=== PATIENT | female | born 1985 | race Hispanic/Latino ===

== ENCOUNTER 2018-02-24 09:13 | Emergency (ER) | payer OTHER ==
--- NOTE | 2018-02-24 10:22 | EDPHYS ---
Physician Documentation [facility] Name: Edel Willingham Age: 33 yrs Sex: Female : 1985 Arrival Date: 02/24/2018 Time: 09:16 Bed 10 Private MD: None, None ED Physician Tej Lake HPI: 02/24 10:20 This 33 yrs old Female presents to ER via Ambulatory with complaints of Rash. jmm 10:20 The patient's rash thought to be caused by an unknown cause. The rash is located on the jmm right arm, left arm, right leg, left leg and neck. 10:20 Onset: The symptoms/episode began/occurred gradually, 3 day(s) ago. jmm 10:20 Associated signs and symptoms: Pertinent negatives: fever. jmm 10:20 Associated signs and symptoms: Pertinent negatives: difficulty breathing, swelling of jmm throat, swelling of tongue. 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 - Social history:: Smoking status: Patient uses tobacco products, smokes one pack cigarettes per day. Patient/guardian denies using alcohol. - Ebola Screening: : Patient negative for fever greater than or equal to 101.5 degrees Fahrenheit, and additional compatible Ebola Virus Disease symptoms Patient denies exposure to infectious person Patient denies travel to an Ebola-affected area in the 21 days before illness onset. ROS: 10:20 Constitutional: Negative for fever, chills, and weight loss. jmm 10:20 Respiratory: Negative for shortness of breath. 10:20 MS/extremity: Positive for erythema. 10:20 Skin: Positive for erythema, rash. 10:20 Neuro: Negative for weakness. 10:20 All other systems are negative. Exam: 10:20 Head/Face: atraumatic. jmm 10:20 Constitutional: The patient appears in no acute distress, alert, awake. 10:20 ENT: no pharyngeal edema appreciated. 10:20 Neck: ROM/movement: is normal. 10:20 Cardiovascular: Rate: normal, Rhythm: regular. 10:20 Respiratory: the patient does not display signs of respiratory distress, Respirations: normal, Breath sounds: are clear throughout. 10:20 Musculoskeletal/extremity: ROM: intact in all extremities. 10:20 Skin: mild erythema noted to the right and left arm, no induration is appreciated, the area is non tender to palpation. . 10:20 Neuro: Orientation: is normal, appropriate for stated age, Mentation: is normal, Memory: is normal. 10:20 Psych: Behavior/mood is pleasant, cooperative. Vital Signs: 09:26 BP 138 / 89; Pulse 65; Resp 18; Temp 98.8(O); Pulse Ox 100% on R/A; Weight 108.86 kg; hj Height 5 ft. 5 in. (165.10 cm); Pain 0/10; 09:26 Body Mass Index 39.94 (108.86 kg, 165.10 cm) hj MDM: 10:20 Patient medically screened. [facility] 10:20 Counseling: I had a detailed discussion with the patient and/or guardian regarding: the [facility] historical points, exam findings, and any diagnostic results supporting the discharge/admit diagnosis, the presence of at least one elevated blood pressure reading (>120/80) during this emergency department visit, the need for outpatient follow up, to return to the emergency department if symptoms worsen or persist or if there are any questions or concerns that arise at home. ED course: Patient will be prescribed oral steroids, advised to follow up with dermatology for further evaluation. Patient advised to return to the ED if she develops increased swelling, shortness of breath, fever, or any other concerning symptoms. . 10:21 Data reviewed: vital signs, nurses notes. [facility] Administered Medications: No medications were administered Disposition: 02/24/18 10:21 Discharged to Home. Impression: Dermatitis, unspecified. - Condition is Stable. - Discharge Instructions: Contact Dermatitis. - Prescriptions for Hydroxyzine HCl 25 mg Oral Tablet - take 1 tablet by ORAL route every 6 hours As needed; 30 tablet. Prednisone 20 mg Oral Tablet - take 1 tablet by ORAL route once daily FOR 12 DAYS Pleast take 3 tabs by mouth daily for 3 days, then 2 tabs by mouth daily for 3 days, then 1 tab by mouth daily for 3 days, then 1/2 tab by mouth daily for 3 days; 20 tablet. - Medication Reconciliation Form, Thank You Letter, Antibiotic Education, Prescription Opioid Use, Work release form form. - Follow up: Private Physician; When: 2 - 3 days; Reason: Continuance of care. Addendum: 02/25/2018 15:51 Co-signature as Attending Physician, Tej Lake MD Available for consultation at p s1 all times.. Signatures: Jg Garsia PA PA jmm Williams, Irene, RN RN iw Adelso Gambino RN RN hj Tej Lake MD MD ps1 Corrections: (The following items were deleted from the chart) 02/24 10:36 10:21 02/24/2018 10:21 Discharged to Home. Impression: Dermatitis, unspecified. iw Condition is Stable. Forms are Medication Reconciliation Form, Thank You Letter, Antibiotic Education, Prescription Opioid Use. Follow up: Private Physician; When: 2 - 3 days; Reason: Continuance of care. kailee
--- NOTE | 2018-02-24 10:22 | ER ---
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 Transition of care: patient was not received from another setting of care. Onset of symptoms was February 24, 2018. Risk Assessment: Do you want to hurt yourself or someone else? Patient reports no desire to harm self or others. Initial Sepsis Screen: Does the patient meet any 2 criteria? No. Patient's initial sepsis screen is negative. Does the patient have a suspected source of infection? No. Patient's initial sepsis screen is negative. Care prior to arrival: None. 09:24 Method Of Arrival: Ambulatory 09:24 Acuity: PHILLIP 4 Triage Assessment: 09:26 General: Appears in no apparent distress. uncomfortable, Behavior is calm, cooperative, hj appropriate for age. Pain: Denies pain. 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 - Social history:: Smoking status: Patient uses tobacco products, smokes one pack cigarettes per day. Patient/guardian denies using alcohol. - Ebola Screening: : Patient negative for fever greater than or equal to 101.5 degrees Fahrenheit, and additional compatible Ebola Virus Disease symptoms Patient denies exposure to infectious person Patient denies travel to an Ebola-affected area in the 21 days before illness onset. Screenin:26 Abuse screen: Denies threats or abuse. Denies injuries from another. Nutritional hj screening: No deficits noted. Tuberculosis screening: No symptoms or risk factors identified. Fall Risk None identified. Assessment: 10:06 General: Appears in no apparent distress. comfortable, Behavior is calm, cooperative. iw Pain: Denies pain. Neuro: Level of Consciousness is awake, alert, obeys commands, Oriented to person, place, time, situation, Moves all extremities. Full function. Respiratory: Respiratory effort is even, unlabored, Respiratory pattern is regular, symmetrical. Derm: Rash noted that is macular, itchy, on chest, right foot, left foot, right arm, left arm, right leg and left leg. Musculoskeletal: Range of motion: intact in all extremities. Vital Signs: 09:26 BP 138 / 89; Pulse 65; Resp 18; Temp 98.8(O); Pulse Ox 100% on R/A; Weight 108.86 kg; hj Height 5 ft. 5 in. (165.10 cm); Pain 0/10; 09:26 Body Mass Index 39.94 (108.86 kg, 165.10 cm) ED Course: 09:16 Patient arrived in ED. mr 09:17 [facility] 09:17 Tej Lake MD is Attending Physician. [facility] 09:17 None, None is Private Physician. mr 09:25 Triage completed. hj 09:26 Arm band placed on left wrist. hj 09:26 Patient has correct armband on for positive identification. Bed in low position. Call light in reach. Side rails up X 1. 09:46 Ivon Easley, RN is Primary Nurse. iw 10:07 No provider procedures requiring assistance completed. Patient did not have IV access iw during this emergency room visit. Patient maintains SpO2 saturation greater than 95% on room air. Administered Medications: No medications were administered Outcome: 10:21 Discharge ordered by . [facility] 10:35 Discharged to home ambulatory. iw 10:35 Condition: good 10:35 Discharge instructions given to patient, Instructed on discharge instructions, follow up and referral plans. medication usage, Demonstrated understanding of instructions, follow-up care, medications, Prescriptions given X 2. 10:36 Patient left the ED. iw Signatures: Jg Garsia PA PA jmm Rivera, Maria mr Ivon Easley, RN RN Adelso Gambino RN RN Corrections: (The following items were deleted from the chart) 09:28 09:26 Pulse 65bpm; Resp 18bpm; Pulse Ox 100% RA; Temp 98.8F Oral; 108.86 kg; Height 5 hj ft. 5 in.; BMI: 39.9; Pain 0/10; hj
[2018-02-24 10:39] VITALS: BP 138/89; TEMP 98.8; O2SAT 100
== END 2018-02-24 10:36 | disposition home or self-care (01) ==
LOC: ER 09:13
DX: L30.9 Dermatitis, unspecified (principal); F17.210 Nicotine dependence, cigarettes, uncomplicated
CPT/HCPCS: 99284

== ENCOUNTER 2018-08-29 15:36 | Emergency (ER) | payer OTHER ==
--- NOTE | 2018-08-29 17:36 | ER ---
Nurse's Notes [facility] Name: Edel Willingham Age: 33 yrs Sex: Female : 1985 Arrival Date: 08/29/2018 Time: 15:39 Bed 12 Private MD: None, None Diagnosis: Dental pain;Dental caries Presentation: 08/29 15:47 Presenting complaint: Patient states: my L top and bottom tooth is hurting for a week hj now; denies headache;. Transition of care: patient was not received from another setting of care. Onset of symptoms was August 29, 2018. Risk Assessment: Do you want to hurt yourself or someone else? Patient reports no desire to harm self or others. Initial Sepsis Screen: Does the patient meet any 2 criteria? No. Patient's initial sepsis screen is negative. Does the patient have a suspected source of infection? No. Patient's initial sepsis screen is negative. Care prior to arrival: None. 15:47 Method Of Arrival: Ambulatory 15:47 Acuity: PHILLIP 4 hj Triage Assessment: 15:48 General: Appears in no apparent distress. uncomfortable, Behavior is calm, cooperative, hj appropriate for age. Pain: Complains of pain in tooth. EENT: Reports pain. 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 - Social history:: Smoking status: Patient uses tobacco products, Patient/guardian denies using alcohol. - Ebola Screening: : Patient negative for fever greater than or equal to 101.5 degrees Fahrenheit, and additional compatible Ebola Virus Disease symptoms Patient denies exposure to infectious person Patient denies travel to an Ebola-affected area in the 21 days before illness onset. Screenin:49 Abuse screen: Denies threats or abuse. Denies injuries from another. Nutritional hj screening: No deficits noted. Tuberculosis screening: No symptoms or risk factors identified. Fall Risk None identified. Assessment: 17:10 General: Appears in no apparent distress. Behavior is calm, cooperative. Pain: iw Complains of pain in left jaw. Neuro: Level of Consciousness is awake, alert, obeys commands, Oriented to person, place, time, situation, Moves all extremities. Full function. Cardiovascular: Patient's skin is warm and dry. Respiratory: Airway is patent Respiratory effort is even, unlabored. GI: No signs and/or symptoms were reported involving the gastrointestinal system. Derm: Skin is intact, is healthy with good turgor. Musculoskeletal: Range of motion: intact in all extremities. Vital Signs: 15:49 BP 122 / 69; Pulse 73; Resp 18; Temp 99.8(O); Pulse Ox 100% on R/A; Weight 113.4 kg; hj Height 5 ft. 6 in. (167.64 cm); Pain 6/10; 15:49 Body Mass Index 40.35 (113.40 kg, 167.64 cm) ED Course: 15:39 Patient arrived in ED. mr 15:39 None, None is Private Physician. mr 15:48 Triage completed. hj 15:49 Arm band placed on right wrist. hj 15:50 Patient has correct armband on for positive identification. Bed in low position. Call light in reach. Side rails up X 1. 17:23 Ivon Easley, LESLIE is Primary Nurse. iw 17:23 Bhavin Christiansen NP is PHCP. pm1 17:23 Arash Banuelos MD is Attending Physician. pm1 17:54 No provider procedures requiring assistance completed. Patient did not have IV access iw during this emergency room visit. Administered Medications: 17:48 Drug: Ibuprofen 800 mg Route: PO; iw Outcome: 17:36 Discharge ordered by MD. pm1 17:54 Discharged to home ambulatory. iw 17:54 Condition: good 17:54 Discharge instructions given to patient, Instructed on discharge instructions, follow up and referral plans. medication usage, Demonstrated understanding of instructions, follow-up care, medications, Prescriptions given X 2. 17:55 Patient left the ED. iw Signatures: Jocelyn Lozano mr Ivon Easley RN RN Adelso Gambino RN RN Bhavin Christiansen NP SENIOR SUPPORT ANALYST pm1 Corrections: (The following items were deleted from the chart) 15:51 15:49 Pulse 73bpm; Resp 18bpm; Pulse Ox 100% RA; Temp 99.8F Oral; 113.4 kg; Height 5 hj ft. 6 in.; BMI: 40.3; Pain 6/10; hj
--- NOTE | 2018-08-29 17:37 | EDPHYS ---
Physician Documentation [facility] Name: Edel Willingham Age: 33 yrs Sex: Female : 1985 Arrival Date: 08/29/2018 Time: 15:39 Bed 12 Private MD: None, None ED Physician Arash Banuelos HPI: 08/29 17:35 This 33 yrs old Female presents to ER via Ambulatory with complaints of pm1 Toothache. 17:35 The patient presents with pain. The problem is located in the lower left third molar pm1 and lower left second molar. Onset: The symptoms/episode began/occurred 1 week(s) ago. Duration: The symptoms are continuous. Modifying factors: The symptoms are alleviated by over the counter medications, NSAIDs, the symptoms are aggravated by nothing. Associated signs and symptoms: Pertinent negatives: chills, dysphagia, fever, inability to eat, nausea, swelling, vomiting. Severity of symptoms: in the emergency department the symptoms are unchanged. The patient has not recently seen a physician. 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 - Social history:: Smoking status: Patient uses tobacco products, Patient/guardian denies using alcohol. - Ebola Screening: : Patient negative for fever greater than or equal to 101.5 degrees Fahrenheit, and additional compatible Ebola Virus Disease symptoms Patient denies exposure to infectious person Patient denies travel to an Ebola-affected area in the 21 days before illness onset. ROS: 17:35 Constitutional: Negative for fever, chills, and weight loss, Eyes: Negative for injury, pm1 pain, redness, and discharge. 17:35 Neck: Negative for injury, pain, and swelling, Cardiovascular: Negative for chest pain, palpitations, and edema, Respiratory: Negative for shortness of breath, cough, wheezing, and pleuritic chest pain, Abdomen/GI: Negative for abdominal pain, nausea, vomiting, diarrhea, and constipation, Back: Negative for injury and pain, : Negative for injury, bleeding, discharge, and swelling, MS/Extremity: Negative for injury and deformity, Skin: Negative for injury, rash, and discoloration, Neuro: Negative for headache, weakness, numbness, tingling, and seizure. 17:35 ENT: Positive for dental pain, Negative for drainage from ear(s), ear pain, sinus pain, sore throat, difficulty swallowing, difficulty handling secretions, hoarseness. Exam: 17:35 Constitutional: This is a well developed, well nourished patient who is awake, alert, pm1 and in no acute distress. Head/Face: Normocephalic, atraumatic. Eyes: Pupils equal round and reactive to light, extra-ocular motions intact. Lids and lashes normal. Conjunctiva and sclera are non-icteric and not injected. Cornea within normal limits. Periorbital areas with no swelling, redness, or edema. 17:35 Neck: Trachea midline, no thyromegaly or masses palpated, and no cervical lymphadenopathy. Supple, full range of motion without nuchal rigidity, or vertebral point tenderness. No Meningismus. Chest/axilla: Normal chest wall appearance and motion. Nontender with no deformity. No lesions are appreciated. Cardiovascular: Regular rate and rhythm with a normal S1 and S2. No gallops, murmurs, or rubs. Normal PMI, no JVD. No pulse deficits. Respiratory: Lungs have equal breath sounds bilaterally, clear to auscultation and percussion. No rales, rhonchi or wheezes noted. No increased work of breathing, no retractions or nasal flaring. Abdomen/GI: Soft, non-tender, with normal bowel sounds. No distension or tympany. No guarding or rebound. No evidence of tenderness throughout. Back: No spinal tenderness. No costovertebral tenderness. Full range of motion. Skin: Warm, dry with normal turgor. Normal color with no rashes, no lesions, and no evidence of cellulitis. MS/ Extremity: Pulses equal, no cyanosis. Neurovascular intact. Full, normal range of motion. 17:35 ENT: External ear(s): are unremarkable, Ear canal(s): are normal, Mouth: is normal, no abscess, no drooling, (-) tongue elevation (-) trismus Dental exam: dental caries, diffusely, fractured teeth are noted, specifically the lower left third molar (#17) and lower left second molar (#18), gum swelling, not appreciated. 17:35 Neuro: Orientation: is normal, Motor: is normal, moves all fours, Sensation: is normal, no obvious gross deficits. Vital Signs: 15:49 BP 122 / 69; Pulse 73; Resp 18; Temp 99.8(O); Pulse Ox 100% on R/A; Weight 113.4 kg; hj Height 5 ft. 6 in. (167.64 cm); Pain 6/10; 15:49 Body Mass Index 40.35 (113.40 kg, 167.64 cm) hj MDM: 17:35 Patient medically screened. pm1 17:35 Data reviewed: vital signs. Data interpreted: Pulse oximetry: on room air is 100 %. pm1 Interpretation: normal. Counseling: I had a detailed discussion with the patient and/or guardian regarding: the historical points, exam findings, and any diagnostic results supporting the discharge/admit diagnosis, the need for outpatient follow up, for definitive care, a dentist, to return to the emergency department if symptoms worsen or persist or if there are any questions or concerns that arise at home. 17:37 ED course: Patient did not want narcotic pain medication in the ER. Requested ibuprofen.pm1 Administered Medications: 17:48 Drug: Ibuprofen 800 mg Route: PO; iw Disposition: 08/29/18 17:36 Discharged to Home. Impression: Dental pain, Dental caries. - Condition is Stable. - Discharge Instructions: Dental Caries, Adult, Dental Pain. - Prescriptions for Augmentin 875- 125 mg Oral Tablet - take 1 tablet by ORAL route every 12 hours for 10 days; 20 tablet. Tramadol 50 mg Oral Tablet - take 1 tablet by ORAL route every 8 hours as needed; 12 tablet. - Medication Reconciliation Form, Thank You Letter, Antibiotic Education, Prescription Opioid Use form. - Follow up: Emergency Department; When: As needed; Reason: Worsening of condition. Follow up: Private Physician; When: 2 - 3 days; Reason: Recheck today's complaints, Continuance of care, Re-evaluation by your physician. - Problem is new. - Symptoms have improved. Addendum: 09/11/2018 07:32 Co-signature as Attending Physician, Arash Banuelos MD I agree with the assessment and k dr plan of care. Signatures: Rittger, Arash, MD Ivon Romero RN RN iw Adelso Gambino RN RN hj Bhavin Christiansen, LITHOPLATE MAKER LITHOPLATE MAKER pm1 Corrections: (The following items were deleted from the chart) 08/29 17:36 17:36 08/29/2018 17:36 Discharged to Home. Impression: Dental pain. Condition is pm1 Stable. Forms are Medication Reconciliation Form, Thank You Letter, Antibiotic Education, Prescription Opioid Use. Follow up: Emergency Department; When: As needed; Reason: Worsening of condition. Follow up: Private Physician; When: 2 - 3 days; Reason: Recheck today's complaints, Continuance of care, Re-evaluation by your physician. Problem is new. Symptoms have improved. pm1 17:55 17:36 08/29/2018 17:36 Discharged to Home. Impression: Dental pain; Dental caries. iw Condition is Stable. Forms are Medication Reconciliation Form, Thank You Letter, Antibiotic Education, Prescription Opioid Use. Follow up: Emergency Department; When: As needed; Reason: Worsening of condition. Follow up: Private Physician; When: 2 - 3 days; Reason: Recheck today's complaints, Continuance of care, Re-evaluation by your physician. Problem is new. Symptoms have improved. pm1
[2018-08-29 18:00] VITALS: BP 122/69; TEMP 99.8; O2SAT 100
[2018-08-29] MEDS ORDERED: IBUPROFEN 400 MG TAB ONE (18:00)
== END 2018-08-29 17:55 | disposition home or self-care (01) ==
LOC: ER 15:36
DX: K02.9 Dental caries, unspecified (principal); Z72.0 Tobacco use
CPT/HCPCS: 99283

== ENCOUNTER 2018-09-12 05:46 | Emergency (ER) | payer OTHER ==
[2018-09-12] MEDS ORDERED: KETOROLAC 30 MG/ML INJ ONE (06:33)
[2018-09-12 06:38] LABS: Urine Bacteria 20-50 /HPF (<20); Urine Culture Reflex Order NOT NEEDED; Urine RBC TNTC /HPF (NONE SEEN)
[2018-09-12] MEDS ORDERED: TAMSULOSIN 0.4 MG SR CAP ONE (07:58)
--- NOTE | 2018-09-12 08:12 | RAD REPORT ---
EXAM DESCRIPTION: CT - Stone Protocol - 09/12/2018 6:38 am CLINICAL HISTORY: Flank pain. KIDNEY STONES COMPARISON: CT-STONE PROTOCOL dated 06/25/2008 TECHNIQUE: Axial images were obtained without oral or IV contrast. Lack of contrast limits solid org an and vascular assessment. The [id number] spans the entirety of the system partially obscuring uppermost abdomen and lung bases. Coronal reformatted images were obtained and reviewed. All CT scans are performed using dose optimization technique as appropriate and may include automated exposure control or mA/KV adjustment according to patient size. FINDINGS: The lower lung snyder are clear. Imaged portions of the liver and spleen show no suspicious findings on non-contrast imaging. The panc reas and adrenal glands are normal. No pathologic lymphadenopathy in the abdomen or pelvis. 5 mm stone (840 HU) is noted at the left UVJ resulting in mild to moderate left hydronephrosis. Addit ional stones are present in the calices of both kidneys, largest in the upper pole calyx measuring 4 mm. No bowel obstruction, free air, free fluid or abscess. Normal appendix noted. No significant bony abnormality. IMPRESSION: 5 mm stone noted at the left UVJ resulting in mild to moderate left hydronephrosis. Additional bilateral nephrolithiasis is also present.
--- NOTE | 2018-09-12 08:17 | ER ---
Nurse's Notes [facility] Name: Edel Willingham Age: 33 yrs Sex: Female : 1985 Arrival Date: 09/12/2018 Time: 05:49 Bed 16 Private MD: Diagnosis: Calculus of kidney with calculus of ureter;Hydronephrosis with renal and ureteral calculous obstruction Presentation: 09/12 05:51 Presenting complaint: Patient states: I have been having lower abdominal and back pain jb4 for the past 2 days. It has been getting worse and was at its worst this morning when I woke up. 05:51 Transition of care: patient was not received from another setting of care. Onset of jb4 symptoms was September 10, 2018. Risk Assessment: Do you want to hurt yourself or someone else? Patient reports no desire to harm self or others. Initial Sepsis Screen: Does the patient meet any 2 criteria? No. Patient's initial sepsis screen is negative. Does the patient have a suspected source of infection? No. Patient's initial sepsis screen is negative. Care prior to arrival: None. 05:51 Method Of Arrival: Ambulatory jb4 05:51 Acuity: PHILLIP 3 jb4 Triage Assessment: 05:51 General: Appears in no apparent distress. uncomfortable, Behavior is calm, cooperative, jb4 appropriate for age. Pain: Complains of pain in left low back and left lower quadrant Pain does not radiate. Pain currently is 7 out of 10 on a pain scale. Quality of pain is described as crampy. EENT: No signs and/or symptoms were reported regarding the EENT system. Neuro: Level of Consciousness is awake, alert, obeys commands, Oriented to person, place, time, situation. Cardiovascular: Patient's skin is warm and dry. Respiratory: Airway is patent Respiratory effort is even, unlabored, Respiratory pattern is regular, symmetrical. GI: Abdomen is non-distended, obese, Bowel sounds present X 4 quads. Abd is soft and non tender X 4 quads. : Reports cramping, in left lower quadrant(s) lower back bloody urination. Derm: Skin is intact, Skin is pink, warm \T\ dry. Musculoskeletal: Circulation, motion, and sensation intact. 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 - Social history:: Smoking status: Patient uses tobacco products, smokes one-half pack cigarettes per day, Patient/guardian denies using alcohol. - Ebola Screening: : No symptoms or risks identified at this time. Screenin:51 Abuse screen: Denies threats or abuse. Nutritional screening: No deficits noted. jb4 Tuberculosis screening: No symptoms or risk factors identified. Fall Risk None identified. Assessment: 05:51 General: see triage assessment.. jb4 06:45 Reassessment: Pt back from CT. jb4 06:47 Reassessment: Patient appears in no apparent distress at this time. Patient and/or jb4 family updated on plan of care and expected duration. Pain level reassessed. Patient is alert, oriented x 3, equal unlabored respirations, skin warm/dry/pink. Patient states feeling better. 07:15 Reassessment: Pt reporting increased pain at this time. Warm compress provided at this jl7 time, pt does not want additional pain medication at this time. Vital Signs: 05:51 BP 146 / 93; Pulse 84; Resp 18; Temp 98.2(O); Pulse Ox 98% on R/A; Weight 113.4 kg (R); jb4 Height 5 ft. 9 in. (175.26 cm) (R); Pain 7/10; 06:45 BP 107 / 81; Pulse 67; Resp 16; Pulse Ox 99% on R/A; jb4 08:00 BP 113 / 84; Pulse 80; Resp 16 S; Pulse Ox 99% on R/A; jl7 05:51 Body Mass Index 36.92 (113.40 kg, 175.26 cm) [facility] ED Course: 05:49 Patient arrived in ED. es 05:51 Kt Samaniego, RN is Primary Nurse. [facility] 05:51 Arm band placed on left wrist. jb4 05:51 Patient has correct armband on for positive identification. Bed in low position. Call [facility] light in reach. Side rails up X 1. Pulse ox on. NIBP on. 06:02 Triage completed. jb4 06:02 Katiuska Finch FNP-C [facility]. snw 06:02 Jed Leon MD is Attending Physician. snw 06:[address] via wheelchair. kw1 06:38 CT Stone Protocol In Process Unspecified. EDMS 06:40 CT completed. Patient tolerated procedure well. Patient moved back from CT. kw1 08:31 No provider procedures requiring assistance completed. Patient did not have IV access jl7 during this emergency room visit. Administered Medications: 06:29 Drug: TORadol 60 mg Route: IM; Site: right gluteus; jb4 06:45 Follow up: Response: No adverse reaction; Pain is decreased jb4 07:52 Drug: Flomax 0.4 mg Route: PO; jl7 08:34 Follow up: Response: No adverse reaction jl7 Outcome: 08:16 Discharge ordered by . snw 08:31 Discharged to home ambulatory. jl7 08:31 Condition: stable 08:31 Discharge instructions given to patient, family, Instructed on discharge instructions, follow up and referral plans. medication usage, Demonstrated understanding of instructions, follow-up care, medications, Prescriptions given X 3. 08:34 Patient left the ED. jl7 Signatures: Dispatcher [employer] EDOK Katiuska Finch FNP-C DISTRIBUTION CENTER ADMINISTRATOR-Csnw Rose Schwarz James, RN RN jb4 Salomon Grover RN RN jl7 Lizbeth Jack kw1
--- NOTE | 2018-09-12 08:18 | EDPHYS ---
Physician Documentation [facility] Name: Edel Willingham Age: 33 yrs Sex: Female : 1985 Arrival Date: 09/12/2018 Time: 05:49 Bed 16 Private MD: ED Physician Jed Leon HPI: 09/12 06:38 This 33 yrs old Female presents to ER via Ambulatory with complaints of snw Abdominal Pain. 06:38 The patient presents with abdominal pain in the left lower quadrant. Onset: The snw symptoms/episode began/occurred gradually, 3 day(s) ago, and became persistent. The symptoms do not radiate. Associated signs and symptoms: Pertinent negatives: fever. The symptoms are described as steady. Severity of pain: At its worst the pain was severe. The patient has experienced a previous episode. The patient has not recently seen a physician. 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 - Social history:: Smoking status: Patient uses tobacco products, smokes one-half pack cigarettes per day, Patient/guardian denies using alcohol. - Ebola Screening: : No symptoms or risks identified at this time. ROS: 06:37 Constitutional: Negative for fever, chills, and weight loss, Eyes: Negative for injury, snw pain, redness, and discharge, ENT: Negative for injury, pain, and discharge, Neck: Negative for injury, pain, and swelling, Cardiovascular: Negative for chest pain, palpitations, and edema, Respiratory: Negative for shortness of breath, cough, wheezing, and pleuritic chest pain, : Negative for injury, bleeding, discharge, and swelling, MS/Extremity: Negative for injury and deformity, Skin: Negative for injury, rash, and discoloration, Neuro: Negative for headache, weakness, numbness, tingling, and seizure, Psych: Negative for depression, anxiety, suicide ideation, homicidal ideation, and hallucinations. 06:37 Abdomen/GI: Positive for abdominal pain, of the left lower quadrant. 06:37 Back: Positive for radiated pain. Exam: 06:33 Head/Face: Normocephalic, atraumatic. Eyes: Pupils equal round and reactive to light, snw extra-ocular motions intact. Lids and lashes normal. Conjunctiva and sclera are non-icteric and not injected. Cornea within normal limits. Periorbital areas with no swelling, redness, or edema. 06:33 Constitutional: This is a well developed, well nourished patient who is awake, alert, and in no acute distress. ENT: Nares patent. No nasal discharge, no septal abnormalities noted. Tympanic membranes are normal and external auditory canals are clear. Oropharynx with no redness, swelling, or masses, exudates, or evidence of obstruction, uvula midline. Mucous membranes moist. Neck: Trachea midline, no thyromegaly or masses palpated, and no cervical lymphadenopathy. Supple, full range of motion without nuchal rigidity, or vertebral point tenderness. No Meningismus. Chest/axilla: Normal chest wall appearance and motion. Nontender with no deformity. No lesions are appreciated. Cardiovascular: Regular rate and rhythm with a normal S1 and S2. No gallops, murmurs, or rubs. Normal PMI, no JVD. No pulse deficits. Respiratory: Lungs have equal breath sounds bilaterally, clear to auscultation and percussion. No rales, rhonchi or wheezes noted. No increased work of breathing, no retractions or nasal flaring. Back: No spinal tenderness. No costovertebral tenderness. Full range of motion. Skin: Warm, dry with normal turgor. Normal color with no rashes, no lesions, and no evidence of cellulitis. MS/ Extremity: Pulses equal, no cyanosis. Neurovascular intact. Full, normal range of motion. Neuro: Awake and alert, GCS 15, oriented to person, place, time, and situation. Cranial nerves II-XII grossly intact. Motor strength 5/5 in all extremities. Sensory grossly intact. Cerebellar exam normal. Normal gait. Psych: Awake, alert, with orientation to person, place and time. Behavior, mood, and affect are within normal limits. 06:33 Abdomen/GI: Inspection: abdomen appears normal, Bowel sounds: normal, Palpation: moderate abdominal tenderness, in the left lower quadrant. Vital Signs: 05:51 BP 146 / 93; Pulse 84; Resp 18; Temp 98.2(O); Pulse Ox 98% on R/A; Weight 113.4 kg (R); jb4 Height 5 ft. 9 in. (175.26 cm) (R); Pain 7/10; 06:45 BP 107 / 81; Pulse 67; Resp 16; Pulse Ox 99% on R/A; jb4 08:00 BP 113 / 84; Pulse 80; Resp 16 S; Pulse Ox 99% on R/A; jl7 05:51 Body Mass Index 36.92 (113.40 kg, 175.26 cm) jb4 MDM: 06:02 Patient medically screened. snw 06:38 Data reviewed: vital signs, nurses notes. Data interpreted: Pulse oximetry: on room air snw is 98 %. Interpretation: normal. Counseling: I had a detailed discussion with the patient and/or guardian regarding: the historical points, exam findings, and any diagnostic results supporting the discharge/admit diagnosis, the presence of at least one elevated blood pressure reading (>120/80) during this emergency department visit, lab results. 09/12 06:08 Order name: Urine Culture snw 09/12 06:08 Order name: Urine Microscopic Only; Complete Time: 06:40 snw 09/12 06:08 Order name: CT Stone Protocol; Complete Time: 08:15 snw 09/12 06:26 Order name: Urine Dipstick--Ancillary (enter results) [facility] 09/12 06:26 Order name: Urine --Ancillary (enter results) [facility] 09/12 06:08 Order name: Urine Test (obtain specimen); Complete Time: 06:29 snw 09/12 06:08 Order name: Urine Dipstick-Ancillary (obtain specimen); Complete Time: 06:29 snw Administered Medications: 06:29 Drug: TORadol 60 mg Route: IM; Site: right gluteus; jb4 06:45 Follow up: Response: No adverse reaction; Pain is decreased jb4 07:52 Drug: Flomax 0.4 mg Route: PO; jl7 08:34 Follow up: Response: No adverse reaction jl7 Disposition: 19:28 Co-signature as Attending Physician, Jed Leon MD. Disposition: 09/12/18 08:16 Discharged to Home. Impression: Calculus of kidney with calculus of ureter, Hydronephrosis with renal and ureteral calculous obstruction. - Condition is Stable. - Discharge Instructions: Kidney Stones, Renal Colic, Hydronephrosis, Dietary Guidelines to Help Prevent Kidney Stones. - Prescriptions for Flomax 0.4 mg Oral Capsule, Sust. Release 24 hr - take 1 capsule by ORAL route once daily 1/2 hour following the same meal each day; 12 capsule. Cipro 500 mg Oral Tablet - take 1 tablet by ORAL route every 12 hours for 7 days; 14 tablet. Diclofenac Sodium 75 mg Oral Tablet Sustained Release - take 1 tablet by ORAL route 2 times per day; 30 tablet. - Work release form, Medication Reconciliation Form, Thank You Letter, Antibiotic Education, Prescription Opioid Use, Family Work Release form. - Follow up: Private Physician; When: 2 - 3 days; Reason: Recheck today's complaints, Continuance of care, Re-evaluation by your physician. Follow up: Emergency Department; When: As needed; Reason: Worsening of condition. Signatures: Dispatcher [employer] EDMS Katiuska Finch FNP-C [facility] Kt Samaniego, RN RN jb4 Salomon Grover RN RN jl7 Jed Leon MD MD gs Corrections: (The following items were deleted from the chart) 08:34 08:16 09/12/2018 08:16 Discharged to Home. Impression: Calculus of kidney with calculus jl7 of ureter; Hydronephrosis with renal and ureteral calculous obstruction. Condition is Stable. Discharge Instructions: Kidney Stones, Renal Colic, Hydronephrosis, Dietary Guidelines to Help Prevent Kidney Stones. Prescriptions for Flomax 0.4 mg Oral Capsule, Sust. Release 24 hr - take 1 capsule by ORAL route once daily 1/2 hour following the same meal each day; 12 capsule, Cipro 500 mg Oral Tablet - take 1 tablet by ORAL route every 12 hours for 7 days; 14 tablet, Diclofenac Sodium 75 mg Oral Tablet Sustained Release - take 1 tablet by ORAL route 2 times per day; 30 tablet. and Forms are Work release form, Medication Reconciliation Form, Thank You Letter, Antibiotic Education, Prescription Opioid Use. Follow up: Private Physician; When: 2 - 3 days; Reason: Recheck today's complaints, Continuance of care, Re-evaluation by your physician. Follow up: Emergency Department; When: As needed; Reason: Worsening of condition. snw
[2018-09-12 08:38] VITALS: TEMP 98.2
[2018-09-12 08:39] VITALS: O2SAT 99
[2018-09-12 08:41] VITALS: BP 113/84
[2018-09-12 08:41] LABS: Urine Blood 3+ (NEG); Urine Glucose NEGATIVE (NEG); Urine Protein 3+ (NEG); Urine Specific Gravity 1.025 (1.005-1.030); Urine pH 5.5 (5.0-7.0)
== END 2018-09-12 08:34 | disposition home or self-care (01) ==
LOC: ER 05:46
DX: N13.2 Hydronephrosis with renal and ureteral calculous obstruction (principal); F17.210 Nicotine dependence, cigarettes, uncomplicated; Z87.442 Personal history of urinary calculi
CPT/HCPCS: 74176; 76377; 81003; 81015; 81025; 87086; 87088

== ENCOUNTER 2018-11-12 17:00 | Emergency (ER) | payer OTHER ==
--- NOTE | 2018-11-12 18:54 | RAD REPORT ---
EXAM DESCRIPTION: RAD - Chest Pa And Lat (2 Views) - 11/12/2018 6:48 pm CLINICAL HISTORY: COUGH Chest pain. COMPARISON: CHEST PA AND LAT 2 VIEW dated 04/13/2009 FINDINGS: The lungs are clear. The heart is normal in size. No displaced fractures. Mild S-shaped th oracic scoliosis. IMPRESSION: No acute or concerning finding suspected.
[2018-11-12 19:30] LABS: Urine Bacteria <20 /HPF (<20); Urine RBC >50 /HPF (NONE SEEN)
[2018-11-12 19:31] LABS: Urine Culture Reflex Order NOT NEEDED; Urine Mucus 2+ /HPF (NONE SEEN)
[2018-11-12 19:48] LABS: Urine Blood 3+ (NEG); Urine Glucose NEGATIVE (NEG); Urine Protein 1+ (NEG); Urine Specific Gravity >1.030 (1.005-1.030); Urine pH 5.5 (5.0-7.0)
--- NOTE | 2018-11-12 19:48 | ER ---
Nurse's Notes [facility] Name: Edel Willingham Age: 33 yrs Sex: Female : 1985 Arrival Date: 11/12/2018 Time: 17:03 Bed 11 Private MD: None, None Diagnosis: Cough;Dysuria Presentation: 11/12 17:04 Presenting complaint: Patient states: sinus congestion and cough, seen her PCP told it sv was allergies but wants a 2nd opinion. c/o urinary frequency, suprapubic pain. Transition of care: patient was not received from another setting of care. Onset of symptoms was November 11, 2018. Care prior to arrival: None. 17:04 Method Of Arrival: Ambulatory sv 17:04 Acuity: PHILLIP 4 sv 17:05 Initial Sepsis Screen: Does the patient meet any 2 criteria? No. Patient's initial sv sepsis screen is negative. Does the patient have a suspected source of infection? No. Patient's initial sepsis screen is negative. 17:05 Risk Assessment: Do you want to hurt yourself or someone else? Patient reports no sv desire to harm self or others. Triage Assessment: 17:04 General: Appears in no apparent distress. comfortable, well developed, Behavior is sv calm, cooperative, appropriate for age. Pain: Complains of pain in suprapubic area Pain currently is 3 out of 10 on a pain scale. Neuro: Level of Consciousness is awake, alert, obeys commands, Oriented to person, place, time, situation, Moves all extremities. Full function Gait is steady. Respiratory: Reports cough that is non-productive, congestion Respiratory effort is even, unlabored, Respiratory pattern is regular, symmetrical. : Reports urgency. Derm: Skin is pink, warm \T\ dry. 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 - Social history:: Smoking status: Patient/guardian denies using tobacco. - Ebola Screening: : No symptoms or risks identified at this time. Screenin:04 Abuse screen: Denies threats or abuse. Denies injuries from another. Nutritional sv screening: No deficits noted. Tuberculosis screening: No symptoms or risk factors identified. Fall Risk None identified. Assessment: 17:42 Reassessment: Patient appears in no apparent distress at this time. No changes from sv previously documented assessment. Patient and/or family updated on plan of care and expected duration. Pain level reassessed. Patient is alert, oriented x 3, equal unlabored respirations, skin warm/dry/pink. 18:30 Reassessment: Patient appears in no apparent distress at this time. No changes from sv previously documented assessment. Patient and/or family updated on plan of care and expected duration. Pain level reassessed. Patient is alert, oriented x 3, equal unlabored respirations, skin warm/dry/pink. 19:18 General: Appears in no apparent distress. comfortable, Behavior is calm, cooperative, tl2 appropriate for age. General: awaiting lab results. Pain: Denies pain. Neuro: Level of Consciousness is awake, alert, obeys commands, Oriented to person, place, time, situation. Cardiovascular: Denies chest pain. Respiratory: Reports cough that is persistent Airway is patent Respiratory effort is even, unlabored, Respiratory pattern is regular, symmetrical, Breath sounds are clear bilaterally. GI: No signs and/or symptoms were reported involving the gastrointestinal system. : No signs and/or symptoms were reported regarding the genitourinary system. Derm: Skin is pink, warm \T\ dry. 20:29 Reassessment: Patient is alert, oriented x 3, equal unlabored respirations, skin bb warm/dry/pink. pt verbalized understanding of and agrees to plan of care discharge instructions given pt ambulated with steady gait to exit. Vital Signs: 17:05 BP 124 / 83; Pulse 70; Resp 20; Temp 98; Pulse Ox 98% ; Weight 122.47 kg; Height 5 ft. sv 5 in. (165.10 cm); Pain 3/10; 19:18 BP 124 / 76; Pulse 73; Resp 18; Pulse Ox 99% on R/A; tl2 17:05 Body Mass Index 44.93 (122.47 kg, 165.10 cm) sv ED Course: 17:03 Patient arrived in ED. mr 17:04 None, None is Private Physician. mr 17:04 Patient has correct armband on for positive identification. sv 17:05 Triage completed. sv 17:06 Arm band placed on. sv 18:03 Awaiting ED provider evaluation. sv 18:06 Ivon Easley, RN is Primary Nurse. iw 18:11 Barak Raines PA is PHCP. cp 18:11 Barak Aguirre MD is Attending Physician. cp 18:45 XRAY Chest Pa And Lat (2 Views) In Process Unspecified. EDMS 18:59 Awaiting lab results. sv 20:31 No provider procedures requiring assistance completed. Patient did not have IV access bb during this emergency room visit. Administered Medications: No medications were administered Outcome: 19:47 Discharge ordered by MD. cp 20:31 Discharged to home ambulatory. bb 20:31 Condition: stable 20:31 Discharge instructions given to patient, Instructed on discharge instructions, follow up and referral plans. medication usage, Demonstrated understanding of instructions, follow-up care, medications, Prescriptions given X 3. 20:32 Patient left the ED. bb Signatures: Dispatcher [employer] EDSC Tameka Garcia RN RN Jocelyn LozanoTenisha RN RN bb Ivon Easley, RN RN Barak Wick PA PA cp Knox, Taylor, RN RN tl2
--- NOTE | 2018-11-12 19:48 | EDPHYS ---
Physician Documentation [facility] Name: Edel Willingham Age: 33 yrs Sex: Female : 1985 Arrival Date: 11/12/2018 Time: 17:03 Bed 11 Private MD: None, None ED Physician Barak Aguirre HPI: 11/12 18:15 This 33 yrs old Female presents to ER via Ambulatory with complaints of cp Urinary Problem, Congestion. 18:15 The patient presents with urinary symptoms, dysuria. cp 18:15 Associated signs and symptoms: Pertinent negatives: diarrhea, fever, vaginal bleeding, cp vaginal discharge. The patient or guardian reports cough, that is intermittent. Onset: The symptoms/episode began/occurred 1 week(s) ago. Associated signs and symptoms: Pertinent positives: sore throat, sinus congestion, Pertinent negatives: chest pain, ear ache, fever. Severity of symptoms: in the emergency department the symptoms are unchanged despite home interventions. The patient has been recently seen by a physician: in [facility], with similar presenting complaints, and apparently given a diagnosis of allergies. 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 - Social history:: Smoking status: Patient/guardian denies using tobacco. - Ebola Screening: : No symptoms or risks identified at this time. ROS: 18:22 Constitutional: Negative for body aches, chills, fever, poor PO intake. cp 18:22 Eyes: Negative for injury, pain, redness, and discharge. cp 18:22 ENT: Positive for sinus congestion, sore throat, Negative for drainage from ear(s), ear pain, difficulty swallowing, difficulty handling secretions. 18:22 Cardiovascular: Negative for chest pain. 18:22 Respiratory: Positive for cough, "sounds productive", Negative for wheezing. 18:22 Abdomen/GI: Negative for abdominal pain, vomiting, diarrhea, constipation. 18:22 : Positive for burning with urination, Negative for pelvic pain, vaginal bleeding, vaginal discharge. 18:22 Skin: Negative for cellulitis, rash. 18:22 Neuro: Negative for altered mental status, headache, weakness. 18:22 All other systems are negative. Exam: 18:28 Constitutional: The patient appears in no acute distress, alert, awake, non-toxic, well cp developed, well nourished. 18:28 Head/Face: Normocephalic, atraumatic. cp 18:28 Eyes: Periorbital structures: appear normal, Conjunctiva: normal, no exudate, no injection, Sclera: no appreciated abnormality, Lids and lashes: appear normal, bilaterally. 18:28 ENT: External ear(s): are unremarkable, Ear canal(s): are normal, clear, TM's: bulging, is not appreciated, bilaterally, erythema, that is mild, on the right, Nose: is normal, Mouth: Lips: moist, Oral mucosa: pink and intact, moist, Posterior pharynx: Airway: no evidence of obstruction, patent, Tonsils: are normal in appearance, swelling, is not appreciated, erythema, is not appreciated, exudate, is not appreciated, Voice: is normal. 18:28 Neck: ROM/movement: is normal, is supple, no meningismus, no nuchal rigidity. 18:28 Chest/axilla: Inspection: normal, Palpation: is normal, no crepitus, no tenderness. 18:28 Cardiovascular: Rate: normal, Rhythm: regular. 18:28 Respiratory: the patient does not display signs of respiratory distress, Respirations: normal, no use of accessory muscles, no retractions, no splinting, no tachypnea, labored breathing, is not present, Breath sounds: decreased breath sounds, are not appreciated, stridor, is not appreciated, + upper airway congestion. wheezing: is not appreciated. 18:28 Abdomen/GI: Inspection: abdomen appears normal, Palpation: abdomen is soft and non-tender, in all quadrants. 18:28 Back: CVA tenderness, is absent. 18:28 Skin: cellulitis, is not appreciated, no rash present. Vital Signs: 17:05 BP 124 / 83; Pulse 70; Resp 20; Temp 98; Pulse Ox 98% ; Weight 122.47 kg; Height 5 ft. sv 5 in. (165.10 cm); Pain 3/10; 19:18 BP 124 / 76; Pulse 73; Resp 18; Pulse Ox 99% on R/A; tl2 17:05 Body Mass Index 44.93 (122.47 kg, 165.10 cm) sv MDM: 18:11 Patient medically screened. cp 18:30 Differential diagnosis: bronchitis, flu, URI, kidney stone, urinary tract infection, cp pneumonia. 19:45 Data reviewed: vital signs, nurses notes, lab test result(s), radiologic studies, plain cp films. 19:45 Test interpretation: by ED physician or midlevel provider: plain radiologic studies. cp Counseling: I had a detailed discussion with the patient and/or guardian regarding: the historical points, exam findings, and any diagnostic results supporting the discharge/admit diagnosis, lab results, radiology results, to return to the emergency department if symptoms worsen or persist or if there are any questions or concerns that arise at home. 11/12 17:25 Order name: Urine Dipstick--Ancillary (enter results) 11/12 17:25 Order name: Urine --Ancillary (enter results) 11/12 18:15 Order name: Influenza Screen (a \\T\\ B); Complete Time: 19:40 cp 11/12 18:15 Order name: Strep; Complete Time: 19:40 cp 11/12 18:16 Order name: Urine Microscopic Only; Complete Time: 19:33 cp 11/12 19:33 Interpretation: Normal except: URBC >50; SQEPI 5-10. cp 11/12 19:41 Order name: Throat Culture EDKY 11/12 18:15 Order name: XRAY Chest Pa And Lat (2 Views); Complete Time: 19:19 cp 11/12 19:19 Interpretation: Report reviewed. cp Administered Medications: No medications were administered Disposition: 11/12/18 19:47 Discharged to Home. Impression: Cough, Dysuria. - Condition is Stable. - Discharge Instructions: Dysuria, Cough, Adult. - Prescriptions for Augmentin 875- 125 mg Oral Tablet - take 1 tablet by ORAL route every 12 hours for 7 days; 14 tablet. Medrol (Willy) 4 mg Oral Tablets, Dose Pack - take 1 tablet by ORAL route as directed - follow package instructions; 1 packet. Albuterol Sulfate 90 mcg/actuation - inhale 1-2 puff by INHALATION route every 4-6 hours; 1 Inhaler. - Medication Reconciliation Form, Thank You Letter, Antibiotic Education, Prescription Opioid Use form. - Follow up: Private Physician; When: 1 week; Reason: symptoms continue. - Problem is new. - Symptoms are unchanged. Addendum: 11/14/2018 07:12 Co-signature as Attending Physician, Barak Aguirre MD I agree with the assessment and c pritchett plan of care. Signatures: Dispatcher [employer] Tameka Recio, RN RN Barak Villatoro MD MD cha Ballard, Brenda, RN RN Barak Malone, PA Shilpa Pina cp RN RN tl2 Corrections: (The following items were deleted from the chart) 11/12 20:32 19:47 11/12/2018 19:47 Discharged to Home. Impression: Cough; Dysuria. Condition is bb Stable. Forms are Medication Reconciliation Form, Thank You Letter, Antibiotic Education, Prescription Opioid Use. Follow up: Private Physician; When: 1 week; Reason: symptoms continue. Problem is new. Symptoms are unchanged. cp
[2018-11-12 21:49] VITALS: TEMP 98
[2018-11-12 21:59] VITALS: BP 124/76; O2SAT 99
== END 2018-11-12 20:32 | disposition home or self-care (01) ==
LOC: ER 17:00
DX: R30.0 Dysuria (principal); R05 Cough; Z87.442 Personal history of urinary calculi
CPT/HCPCS: 71046; 81003; 81015; 81025; 87070; 87081; 87804; 99283

== ENCOUNTER 2019-01-24 07:16 | Emergency (ER) | payer OTHER ==
--- NOTE | 2019-01-24 07:33 | EDPHYS ---
Physician Documentation [facility] Name: Edel Willingham Age: 34 yrs Sex: Female : 1985 Arrival Date: 01/24/2019 Time: 07:20 Bed 16 Private MD: None, None ED Physician Tej Lake HPI: 01/24 07:30 This 34 yrs old Female presents to ER via Unassigned with complaints of nh Itching. 07:30 Onset: The symptoms/episode began/occurred 1 month(s) ago. Associated signs and nh symptoms: The patient has no apparent associated signs or symptoms. Modifying factors: The patient symptoms are alleviated by nothing, the patient symptoms are aggravated by nothing. The patient has experienced similar episodes in the past, and the symptoms today are exactly the same. The patient has been recently seen by a physician:. Patient seen here approx 1 month ago and given steroids. [facility] and given another steroid pack, but she states that it didn't help. Patient denies rash. Historical: - Allergies: 07:30 No Known Allergies; rb1 - Home Meds: 07:30 None [Active]; rb1 - PMHx: 07:30 Kidney stones; rb1 - PSHx: 07:30 ; rb1 ROS: 07:30 Constitutional: Negative for fever, chills, and weight loss, Eyes: Negative for injury, nh pain, redness, and discharge, ENT: Negative for injury, pain, and discharge, Neck: Negative for injury, pain, and swelling, Cardiovascular: Negative for chest pain, palpitations, and edema, Respiratory: Negative for shortness of breath, cough, wheezing, and pleuritic chest pain, Abdomen/GI: Negative for abdominal pain, nausea, vomiting, diarrhea, and constipation, Back: Negative for injury and pain, : Negative for injury, bleeding, discharge, and swelling, MS/Extremity: Negative for injury and deformity, Neuro: Negative for headache, weakness, numbness, tingling, and seizure, Psych: Negative for depression, anxiety, suicide ideation, homicidal ideation, and hallucinations, Allergy/Immunology: Negative for hives, rash, and allergies, Endocrine: Negative for neck swelling, polydipsia, polyuria, polyphagia, and marked weight changes, Hematologic/Lymphatic: Negative for swollen nodes, abnormal bleeding, and unusual bruising. 07:30 Skin: Positive for itching diffusely. Exam: 07:30 Constitutional: This is a well developed, well nourished patient who is awake, alert, nh and in no acute distress. Head/Face: Normocephalic, atraumatic. Eyes: Pupils equal round and reactive to light, extra-ocular motions intact. Lids and lashes normal. Conjunctiva and sclera are non-icteric and not injected. Cornea within normal limits. Periorbital areas with no swelling, redness, or edema. ENT: Nares patent. No nasal discharge, no septal abnormalities noted. Tympanic membranes are normal and external auditory canals are clear. Oropharynx with no redness, swelling, or masses, exudates, or evidence of obstruction, uvula midline. Mucous membranes moist. Neck: Trachea midline, no thyromegaly or masses palpated, and no cervical lymphadenopathy. Supple, full range of motion without nuchal rigidity, or vertebral point tenderness. No Meningismus. Chest/axilla: Normal chest wall appearance and motion. Nontender with no deformity. No lesions are appreciated. Cardiovascular: Regular rate and rhythm with a normal S1 and S2. No gallops, murmurs, or rubs. Normal PMI, no JVD. No pulse deficits. Respiratory: Lungs have equal breath sounds bilaterally, clear to auscultation and percussion. No rales, rhonchi or wheezes noted. No increased work of breathing, no retractions or nasal flaring. Abdomen/GI: Soft, non-tender, with normal bowel sounds. No distension or tympany. No guarding or rebound. No evidence of tenderness throughout. Back: No spinal tenderness. No costovertebral tenderness. Full range of motion. Skin: Warm, dry with normal turgor. Normal color with no rashes, no lesions, and no evidence of cellulitis. MS/ Extremity: Pulses equal, no cyanosis. Neurovascular intact. Full, normal range of motion. Vital Signs: 07:30 BP 119 / 81; Pulse 72; Resp 17; Temp 98.2(O); Pulse Ox 99% on R/A; Weight 122.47 kg rb1 (R); Height 5 ft. 5 in. (165.10 cm) (R); Pain 0/10; 07:30 Body Mass Index 44.93 (122.47 kg, 165.10 cm) rb1 MDM: 07:27 Patient medically screened. ri 07:30 Data reviewed: vital signs, nurses notes, I have discussed the patient's ri presentation/case with the attending Emergency Department Physician; and as a result, I will discharge patient. Counseling: I had a detailed discussion with the patient and/or guardian regarding: the historical points, exam findings, and any diagnostic results supporting the discharge/admit diagnosis, the need for outpatient follow up, to return to the emergency department if symptoms worsen or persist or if there are any questions or concerns that arise at home. Administered Medications: No medications were administered Disposition: 01/24/19 07:33 Discharged to Home as Medical Screen. Impression: Person with feared health complaint in whom no diagnosis is made. - Condition is Stable. - Medication Reconciliation Form, Thank You Letter, Antibiotic Education, Prescription Opioid Use form. - Follow up: Private Physician; When: 5 - 6 days; Reason: Recheck today's complaints. - Problem is new. - Symptoms are unchanged. Signatures: Angelita Kirby, PLATFORM ATTENDANT PLATFORM ATTENDANT ri Cely Lee, RN RN rb1 Corrections: (The following items were deleted from the chart) 07:55 07:33 01/24/2019 07:33 Discharged to Home as Medical Screen. Impression: Person with rb1 feared health complaint in whom no diagnosis is made. Condition is Stable. Forms are Medication Reconciliation Form, Thank You Letter, Antibiotic Education, Prescription Opioid Use. Follow up: Private Physician; When: 5 - 6 days; Reason: Recheck today's complaints. Problem is new. Symptoms are unchanged. ri
--- NOTE | 2019-01-25 07:57 | ER ---
Nurse's Notes [facility] Name: Edel Willingham Age: 34 yrs Sex: Female : 1985 Arrival Date: 01/24/2019 Time: 07:20 Bed 16 Private MD: None, None Diagnosis: Person with feared health complaint in whom no diagnosis is made Historical: - Allergies: 01/24 07:30 No Known Allergies; rb1 - Home Meds: 07:30 None [Active]; rb1 - PMHx: 07:30 Kidney stones; rb1 - PSHx: 07:30 ; rb1 Assessment: 07:30 General: Appears in no apparent distress. comfortable, Behavior is calm, cooperative. rb1 Pain: Denies pain. Neuro: Level of Consciousness is awake, alert, obeys commands, Oriented to person, place, time, situation. Respiratory: Airway is patent Respiratory effort is even, unlabored, Respiratory pattern is regular, symmetrical, Breath sounds are clear bilaterally. Denies shortness of breath. Derm: Skin is pink, warm \T\ dry. NO rash visible. Vital Signs: 07:30 BP 119 / 81; Pulse 72; Resp 17; Temp 98.2(O); Pulse Ox 99% on R/A; Weight 122.47 kg rb1 (R); Height 5 ft. 5 in. (165.10 cm) (R); Pain 0/10; 07:30 Body Mass Index 44.93 (122.47 kg, 165.10 cm) rb1 ED Course: 07:20 Patient arrived in ED. ag5 07:20 None, None is Private Physician. ag5 07:26 Cely Lee, LESLIE is Primary Nurse. rb1 07:27 Angel[facility] Kirby [facility]. nh 07:27 Tej Lake MD is Attending Physician. ma Administered Medications: No medications were administered Outcome: 07:33 Discharge ordered by . nh 07:35 Patient left the ED. rb1 07:35 Medical screen evaluation completed per provider. Patient declined treatment. rb1 07:35 Condition: stable Signatures: Angelita Kirby FNP MD PSYCHIATRY ma Cely Lee RN RN rb1 Jenny Shultz ag5 Corrections: (The following items were deleted from the chart) 08:02 07:55 Patient left the ED. rb1 rb1
== END 2019-01-24 07:55 | disposition home or self-care (01) ==
LOC: ER 07:16
DX: Z71.1 Person with feared health complaint in whom no diagnosis is made (principal)
CPT/HCPCS: 99281

== ENCOUNTER 2019-04-10 08:01 | Emergency (ER) | payer OTHER ==
[2019-04-10] MEDS ORDERED: ACETAMINOPHEN 500 MG TAB ONE (08:14)
[2019-04-10] MEDS ORDERED: IBUPROFEN 400 MG TAB ONE (08:14)
[2019-04-10 09:32] VITALS: TEMP 98.1
[2019-04-10 09:33] VITALS: BP 133/93; O2SAT 100
--- NOTE | 2019-04-10 09:39 | EDPHYS ---
Physician Documentation [facility] Name: Edel Willingham Age: 34 yrs Sex: Female : 1985 Arrival Date: 04/10/2019 Time: 08:03 Bed 13 Private MD: ED Physician Cas Frias HPI: 04/10 08:09 This 34 yrs old Female presents to ER via Ambulatory with complaints of Knee cp Pain. 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 - Social history:: Smoking status: Patient uses tobacco products, Patient/guardian denies using alcohol. - Ebola Screening: : Patient negative for fever greater than or equal to 101.5 degrees Fahrenheit, and additional compatible Ebola Virus Disease symptoms Patient denies exposure to infectious person Patient denies travel to an Ebola-affected area in the 21 days before illness onset. ROS: 08:15 Constitutional: Negative for body aches, chills, fever. cp 08:15 Eyes: Negative for injury, pain, redness, and discharge. cp 08:15 ENT: Negative for drainage from ear(s), ear pain, sore throat, difficulty swallowing, difficulty handling secretions. 08:15 Cardiovascular: Negative for chest pain. 08:15 Respiratory: Negative for cough, shortness of breath, wheezing. 08:15 Abdomen/GI: Negative for abdominal pain, nausea, vomiting, and diarrhea. 08:15 Back: Negative for pain at rest, pain with movement. 08:15 MS/extremity: Positive for pain, of the anterior left knee, Negative for injury or acute deformity, decreased range of motion, paresthesias. 08:15 Skin: Negative for rash. 08:15 All other systems are negative. Exam: 08:20 Constitutional: The patient appears in no acute distress, alert, awake, non-toxic, well cp developed, well nourished, obese. 08:20 Head/Face: Normocephalic, atraumatic. cp 08:20 Musculoskeletal/extremity: ROM: full active range of motion, in the left knee, limited active range of motion due to pain, in the left knee, Sensation intact. Joints: All joints are normal except the left knee displays painful range of motion, mild tenderness noted medial and lateral patella, Weight bearing: able to fully bear weight, DVT Exam: No signs of deep vein thrombosis. 08:20 Skin: cellulitis, is not appreciated, no rash present. Vital Signs: 08:10 BP 112 / 84; Pulse 69; Resp 18; Temp 98.1(TE); Pulse Ox 99% on R/A; Weight 117.93 kg; hj Height 5 ft. 5 in. (165.10 cm); Pain 6/10; 08:55 BP 133 / 93; Pulse 72; Resp 18; Pulse Ox 100% on R/A; hj 08:10 Body Mass Index 43.27 (117.93 kg, 165.10 cm) MDM: 08:09 Patient medically screened. cp 08:45 Data reviewed: vital signs, nurses notes, radiologic studies, plain films, and as a cp result, I will discharge patient. 04/10 08:09 Order name: XRAY Knee LEFT 3 view cp Administered Medications: 08:09 Drug: Ibuprofen 800 mg Route: PO; 08:53 Follow up: Response: No adverse reaction 08:09 Drug: Tylenol 1000 mg Route: PO; hj 08:53 Follow up: Response: No adverse reaction Disposition: 11:48 Co-signature as Attending Physician, Cas Frias MD. rn Disposition: 04/10/19 08:46 Discharged to Home. Impression: Pain in left knee. - Condition is Stable. - Discharge Instructions: Elastic Bandage and RICE, Knee Pain. - Prescriptions for Naprosyn 500 mg Oral Tablet - take 1 tablet by ORAL route 2 times per day take with food; 20 tablet. - Work release form, Medication Reconciliation Form, Thank You Letter, Antibiotic Education, Prescription Opioid Use form. - Follow up: Zi Duron MD; When: 1 week; Reason: Worsening of condition. - Problem is new. - Symptoms have improved. Signatures: Dispatcher [employer] EDCas Branham MD MD rn Joaquin, Henry, RN RN hj Page, Corey, PA PA cp Corrections: (The following items were deleted from the chart) 09:02 08:46 04/10/2019 08:46 Discharged to Home. Impression: Pain in left knee. Condition is hj Stable. Forms are Medication Reconciliation Form, Thank You Letter, Antibiotic Education, Prescription Opioid Use. Follow up: Zi Duron; When: 1 week; Reason: Worsening of condition. Problem is new. Symptoms have improved. cp
--- NOTE | 2019-04-10 09:39 | ER ---
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 Transition of care: patient was not received from another setting of care. Onset of symptoms was April 10, 2019. Risk Assessment: Do you want to hurt yourself or someone else? Patient reports no desire to harm self or others. Initial Sepsis Screen: Does the patient meet any 2 criteria? No. Patient's initial sepsis screen is negative. Does the patient have a suspected source of infection? No. Patient's initial sepsis screen is negative. Care prior to arrival: None. 08:07 Method Of Arrival: Ambulatory 08:07 Acuity: PHILLIP 4 hj Triage Assessment: 08:08 General: Appears in no apparent distress. uncomfortable, Behavior is calm, cooperative, hj appropriate for age. Pain: Complains of pain in left knee. 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 - Social history:: Smoking status: Patient uses tobacco products, Patient/guardian denies using alcohol. - Ebola Screening: : Patient negative for fever greater than or equal to 101.5 degrees Fahrenheit, and additional compatible Ebola Virus Disease symptoms Patient denies exposure to infectious person Patient denies travel to an Ebola-affected area in the 21 days before illness onset. Screenin:08 Abuse screen: Denies threats or abuse. Denies injuries from another. Nutritional hj screening: No deficits noted. Tuberculosis screening: No symptoms or risk factors identified. Fall Risk None identified. Assessment: 08:56 General: Appears in no apparent distress. uncomfortable, Behavior is calm, cooperative, hj appropriate for age. Pain: Complains of pain in left leg and left knee. Musculoskeletal: Swelling Reports pain in left knee. Vital Signs: 08:10 BP 112 / 84; Pulse 69; Resp 18; Temp 98.1(TE); Pulse Ox 99% on R/A; Weight 117.93 kg; hj Height 5 ft. 5 in. (165.10 cm); Pain 6/10; 08:55 BP 133 / 93; Pulse 72; Resp 18; Pulse Ox 100% on R/A; hj 08:10 Body Mass Index 43.27 (117.93 kg, 165.10 cm) hj ED Course: 08:03 Patient arrived in ED. rg4 08:04 Barak Raines PA is PHCP. cp 08:04 Cas Frias MD is Attending Physician. cp 08:06 Adelso Gambino RN is Primary Nurse. hj 08:08 Triage completed. hj 08:09 Arm band placed on. hj 08:10 Patient has correct armband on for positive identification. Bed in low position. Call hj light in reach. Side rails up X 1. Adult w/ patient. 08:36 XRAY Knee LEFT 3 view In Process Unspecified. EDMS 08:45 Zi Duron MD is Referral Physician. cp 08:55 No provider procedures requiring assistance completed. Patient did not have IV access hj during this emergency room visit. Administered Medications: 08:09 Drug: Ibuprofen 800 mg Route: PO; hj 08:53 Follow up: Response: No adverse reaction hj 08:09 Drug: Tylenol 1000 mg Route: PO; hj 08:53 Follow up: Response: No adverse reaction Outcome: 08:46 Discharge ordered by . cp 08:56 Discharged to home ambulatory. hj 08:56 Condition: stable 08:56 Discharge instructions given to patient, Instructed on discharge instructions, follow up and referral plans. medication usage, Demonstrated understanding of instructions, follow-up care, medications, Prescriptions given X 1. 09:02 Patient left the ED. Signatures: Dispatcher [employer] EDMS Adelso Gambino RN RN hj Barak Raines PA PA cp Garcia, Rubi rg4
--- NOTE | 2019-04-10 09:41 | RAD REPORT ---
EXAM DESCRIPTION: RAD - Knee Left 3 View - 04/10/2019 8:34 am CLINICAL HISTORY: Left knee pain FINDINGS: No fracture or dislocation is seen. Soft tissue swelling. Small joint effusion. Minimal narrowing of the medial joint space
== END 2019-04-10 09:02 | disposition home or self-care (01) ==
LOC: ER 08:01
DX: M25.562 Pain in left knee (principal); Z72.0 Tobacco use
CPT/HCPCS: 99283

== ENCOUNTER 2019-06-19 08:31 | Emergency (ER) | payer OTHER ==
[2019-06-19 09:05] LABS: Absolute Lymphocytes (CBC) 1.5 K/uL (0.7-4.9); MPV 8.7 fL (7.6-11.3); RBC Red Blood Cell Count 4.29 M/uL (3.86-4.86)
[2019-06-19 09:20] LABS: ALT/SGPT 29 U/L (12-78); AST/SGOT 15 U/L (15-37); Albumin 3.8 g/dL (3.4-5.0); Alkaline Phosphatase 77 U/L (45-117); BUN Blood Urea Nitrogen 11 mg/dL (7-18); Bicarbonate 24 mmol/L (21-32); Bilirubin Direct < 0.1 mg/dL (0-0.2); Bilirubin Total 0.3 mg/dL (0.2-1.0); Glucose Level 92 mg/dL (74-106); Lipase 64 U/L (73-393); Potassium 3.8 mmol/L (3.5-5.1); Protein, Total 7.4 g/dL (6.4-8.2); Sodium Level 142 mmol/L (136-145)
--- NOTE | 2019-06-19 09:28 | RAD REPORT ---
EXAM DESCRIPTION: CT - Stone Protocol - 06/19/2019 9:09 am CLINICAL HISTORY: Flank pain. ABD PAIN COMPARISON: Stone Protocol dated 09/12/2018 TECHNIQUE: Axial images were obtained without oral or IV contrast. Lack of contrast limits solid org an and vascular assessment. The [id number] spans the entirety of the system partially obscuring uppermost abdomen and lung bases. Coronal reformatted images were obtained and reviewed. All CT scans are performed using dose optimization technique as appropriate and may include automated exposure control or mA/KV adjustment according to patient size. FINDINGS: The lower lung snyder are clear. Imaged portions of the liver and spleen show no suspicious findings on non-contrast imaging. The panc reas and adrenal glands are normal. No pathologic lymphadenopathy in the abdomen or pelvis. Small caliceal stones are present bilaterally without hydronephrosis. No ureter or bladder stones see n. No bowel obstruction, free air, free fluid or abscess. Normal appendix noted. No significant bony abnormality. IMPRESSION: Nonobstructing bilateral caliceal renal calculi.
[2019-06-19 09:30] LABS: Urine Blood TRACE (NEG); Urine Glucose NEGATIVE (NEG); Urine Protein NEGATIVE (NEG)
--- NOTE | 2019-06-19 09:40 | ER ---
Nurse's Notes [facility] Name: Edel Willingham Age: 34 yrs Sex: Female : 1985 Arrival Date: 06/19/2019 Time: 08:33 Bed 5 Private MD: None, None Diagnosis: Left flank pain, hematuria, bilateral renal calculi Presentation: 06/19 08:45 Presenting complaint: Patient states: left low back pain since 0400, +nausea, no iw vomiting, no urinary symptoms, +hx of kidney stones, feels similar. Transition of care: patient was not received from another setting of care. Onset of symptoms was June 19, 2019. Risk Assessment: Do you want to hurt yourself or someone else? Patient reports no desire to harm self or others. Initial Sepsis Screen: Does the patient meet any 2 criteria? No. Patient's initial sepsis screen is negative. Does the patient have a suspected source of infection? No. Patient's initial sepsis screen is negative. Care prior to arrival: None. 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 - Social history:: Smoking status: Patient uses tobacco products, smokes one pack cigarettes per day. - Ebola Screening: : Patient negative for fever greater than or equal to 101.5 degrees Fahrenheit, and additional compatible Ebola Virus Disease symptoms Patient denies exposure to infectious person Patient denies travel to an Ebola-affected area in the 21 days before illness onset No symptoms or risks identified at this time. Screenin:56 Abuse screen: Denies threats or abuse. Nutritional screening: No deficits noted. aa5 Tuberculosis screening: No symptoms or risk factors identified. Fall Risk None identified. Assessment: 08:48 Reassessment: Informed Dr Banuelos the reason for visit and symptoms for the pt. Ok to sv input abdominal workup. 08:48 General: Appears comfortable, Behavior is calm, cooperative. Pain: Complains of pain in aa5 left low back Pain does not radiate. Pain currently is 5 out of 10 on a pain scale. Quality of pain is described as sharp, Pain began 0400 Is continuous. Neuro: Level of Consciousness is awake, alert, obeys commands, Oriented to person, place, time, situation. Cardiovascular: Heart tones S1 S2 present Rhythm is regular. Respiratory: Airway is patent Respiratory effort is even, unlabored, Respiratory pattern is regular, symmetrical. GI: Abdomen is round Bowel sounds present X 4 quads. Abd is soft and non tender X 4 quads. Reports intermittent nausea. Denies nausea at this time. Patient currently denies vomiting. : Denies burning with urination, inability to void, pain urinary frequency, urgency. EENT: No signs and/or symptoms were reported regarding the EENT system. Derm: Skin is pink, warm \T\ dry. Musculoskeletal: Range of motion: intact in all extremities. 10:52 Reassessment: Patient is alert, oriented x 3, equal unlabored respirations, skin aa5 warm/dry/pink. Vital Signs: 08:48 BP 116 / 73; Pulse 68; Resp 16 S; Temp 97.6; Pulse Ox 100% on R/A; Weight 117.93 kg; iw Height 5 ft. 5 in. (165.10 cm); Pain 5/10; 09:30 BP 118 / 74; Pulse 70; Resp 16 S; Pulse Ox 100% on R/A; aa5 08:48 Body Mass Index 43.27 (117.93 kg, 165.10 cm) iw ED Course: 08:33 Patient arrived in ED. ag5 08:33 None, None is Private Physician. ag5 08:41 Adry Dougherty, RN is Primary Nurse. aa5 08:43 Arm band placed on Patient placed in an exam room, on a stretcher. sv 08:43 Patient has correct armband on for positive identification. Bed in low position. Call sv light in reach. Door closed. Head of bed elevated. 08:48 Triage completed. iw 08:50 Initial lab(s) drawn, by me, sent to lab. Inserted saline lock: 20 gauge in right aa5 antecubital area, using aseptic technique. Blood collected. 08:54 Urine collected: clean catch specimen, cloudy, ricky colored. jb1 08:56 Arash Banuelos MD is Attending Physician. kdr 09:08 CT Stone Protocol In Process Unspecified. EDMS 09:35 Bakari Mendez MD is Referral Physician. kdr 10:50 No provider procedures requiring assistance completed. IV discontinued, intact, aa5 bleeding controlled, No redness/swelling at site. Pressure dressing applied. Administered Medications: No medications were administered Outcome: 09:39 Discharge ordered by MD. kdr 10:52 Discharged to home ambulatory. aa5 10:52 Condition: good 10:52 Discharge instructions given to patient, Instructed on discharge instructions, follow up and referral plans. medication usage, Demonstrated understanding of instructions, follow-up care, medications, Prescriptions given X 4. 10:59 Patient left the ED. aa5 Signatures: Dispatcher [employer] EDMA Luciano Crawford jb1 Tameka Garcia RN Arash Alvarez MD MD kdr Williams, Irene, RN RN iw Calderon, Audri, RN RN aa5 Jenny Shultz 5
--- NOTE | 2019-06-19 09:40 | EDPHYS ---
Physician Documentation [facility] Name: Edel Willingham Age: 34 yrs Sex: Female : 1985 Arrival Date: 06/19/2019 Time: 08:33 Bed 5 Private MD: None, None ED Physician Arash Banuelos HPI: 06/19 09:32 This 34 yrs old Female presents to ER via Ambulatory with complaints of kdr Possible Kidney Stone. 09:32 The patient complains of pain in the left flank. The pain does not radiate. Onset: The kdr symptoms/episode began/occurred suddenly, this morning. Modifying factors: The symptoms are alleviated by nothing. the symptoms are aggravated by nothing. Associated signs and symptoms: Pertinent positives: urinary frequency, nausea, Pertinent negatives: diarrhea, dizziness, dysuria, urinary frequency, headache, pain radiating to the lower extremities, vomiting. Severity of pain: At its worst the pain was moderate in the emergency department the pain has improved mildly. The patient has experienced similar episodes in the past, a few times. The patient has not recently seen a physician. 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 - Social history:: Smoking status: Patient uses tobacco products, smokes one pack cigarettes per day. - Ebola Screening: : Patient negative for fever greater than or equal to 101.5 degrees Fahrenheit, and additional compatible Ebola Virus Disease symptoms Patient denies exposure to infectious person Patient denies travel to an Ebola-affected area in the 21 days before illness onset No symptoms or risks identified at this time. ROS: 09:32 Constitutional: Negative for fever, chills, and weight loss, Eyes: Negative for injury, kdr pain, redness, and discharge, Neck: Negative for injury, pain, and swelling, Cardiovascular: Negative for chest pain, palpitations, and edema, Respiratory: Negative for shortness of breath, cough, wheezing, and pleuritic chest pain, Abdomen/GI: Negative for abdominal pain, nausea, vomiting, diarrhea, and constipation, Back: Negative for injury and pain, MS/Extremity: Negative for injury and deformity, Skin: Negative for injury, rash, and discoloration, Neuro: Negative for headache, weakness, numbness, tingling, and seizure activity. Psych: Negative for depression, anxiety, suicide ideation, homicidal ideation, and hallucinations, Allergy/Immunology: Negative for hives, rash, and allergies, Endocrine: Negative for neck swelling, polydipsia, polyuria, polyphagia, and marked weight changes, Hematologic/Lymphatic: Negative for swollen nodes, abnormal bleeding, and unusual bruising. Exam: 09:32 Constitutional: This is a well developed, well nourished patient who is awake, alert, kdr and in no acute distress. Head/Face: Normocephalic, atraumatic. Eyes: Pupils equal round and reactive to light, extra-ocular motions intact. Lids and lashes normal. Conjunctiva and sclera are non-icteric and not injected. Cornea within normal limits. Periorbital areas with no swelling, redness, or edema. Neck: Trachea midline, no thyromegaly or masses palpated, and no cervical lymphadenopathy. Supple, full range of motion without nuchal rigidity, or vertebral point tenderness. No Meningismus. Chest/axilla: Normal chest wall appearance and motion. Nontender with no deformity. No lesions are appreciated. Cardiovascular: Regular rate and rhythm with a normal S1 and S2. No gallops, murmurs, or rubs. Normal PMI, no JVD. No pulse deficits. Respiratory: Lungs have equal breath sounds bilaterally, clear to auscultation and percussion. No rales, rhonchi or wheezes noted. No increased work of breathing, no retractions or nasal flaring. Abdomen/GI: Soft, non-tender, with normal bowel sounds. No distension or tympany. No guarding or rebound. No evidence of tenderness throughout. Back: No spinal tenderness. No costovertebral tenderness. Full range of motion. Skin: Warm, dry with normal turgor. Normal color with no rashes, no lesions, and no evidence of cellulitis. MS/ Extremity: Pulses equal, no cyanosis. Neurovascular intact. Full, normal range of motion. Neuro: Awake and alert, GCS 15, oriented to person, place, time, and situation. Cranial nerves II-XII grossly intact. Motor strength 5/5 in all extremities. Sensory grossly intact. Cerebellar exam normal. Normal gait. Psych: Awake, alert, with orientation to person, place and time. Behavior, mood, and affect are within normal limits. Vital Signs: 08:48 BP 116 / 73; Pulse 68; Resp 16 S; Temp 97.6; Pulse Ox 100% on R/A; Weight 117.93 kg; iw Height 5 ft. 5 in. (165.10 cm); Pain 5/10; 09:30 BP 118 / 74; Pulse 70; Resp 16 S; Pulse Ox 100% on R/A; aa5 08:48 Body Mass Index 43.27 (117.93 kg, 165.10 cm) iw MDM: 09:32 Data reviewed: vital signs, nurses notes, lab test result(s), radiologic studies. kdr Counseling: I had a detailed discussion with the patient and/or guardian regarding: the historical points, exam findings, and any diagnostic results supporting the discharge/admit diagnosis, lab results, radiology results, the need for outpatient follow up. 09:39 Patient medically screened. kdr 06/19 08:50 Order name: Basic Metabolic Panel; Complete Time: 09: sv 06/19 08:50 Order name: CBC with Diff; Complete Time: sv 06/19 08:50 Order name: Creatinine for Radiology; Complete Time: sv 06/19 08:50 Order name: Hepatic Function; Complete Time: : sv 06/19 08:50 Order name: Lipase; Complete Time: : sv 06/19 08:56 Order name: Urine Dipstick--Ancillary (enter results); Complete Time: : eb 06/19 08:50 Order name: IV Saline Lock; Complete Time: : sv 06/19 08:50 Order name: Labs collected and sent; Complete Time: : sv 06/19 08:56 Order name: CT Stone Protocol; Complete Time: : kdr 06/19 08:56 Order name: Urine --Ancillary (enter results); Complete Time: : eb Administered Medications: No medications were administered Disposition: 06/19/19 09:39 Discharged to Home. Impression: Left flank pain, hematuria, bilateral renal calculi. - Condition is Stable. - Discharge Instructions: Hematuria, Adult, Renal Colic, [id number], Kidney Stones, [id number], Flank Pain, [id number]. - Prescriptions for Zofran 4 mg Oral Tablet - take 1 tablet by ORAL route every 4-6 hours As needed; 6 tablet. Flomax 0.4 mg Oral Capsule, Sust. Release 24 hr - take 1 capsule by ORAL route once daily 1/2 hour following the same meal each day; 10 capsule. Tramadol 50 mg Oral Tablet - take 1 tablet by ORAL route every 8 hours as needed; 12 tablet. Bactrim DS 800- 160 mg Oral Tablet - take 1 tablet by ORAL route every 12 hours for 3 days; 6 tablet. - Medication Reconciliation Form, Thank You Letter, Antibiotic Education, Prescription Opioid Use, Work release form form. - Follow up: Private Physician; When: 2 - 3 days; Reason: If symptoms return, Further diagnostic work-up, Recheck today's complaints, Continuance of care, Re-evaluation by your physician. Follow up: Bakari Mendez MD; When: 2 - 3 days; Reason: If symptoms return, Further diagnostic work-up, Recheck today's complaints, Continuance of care, Re-evaluation by your physician. - Problem is an acute exacerbation. - Symptoms have improved. Signatures: Dispatcher [employer] Tameka Recio RN RN sv Arash Banuelos MD MD [facility] Ivon Easley RN RN iw Adry Dougherty RN RN aa5 Corrections: (The following items were deleted from the chart) 10:59 09:39 06/19/2019 09:39 Discharged to Home. Impression: Left flank pain, hematuria, aa5 bilateral renal calculi. Condition is Stable. Forms are Medication Reconciliation Form, Thank You Letter, Antibiotic Education, Prescription Opioid Use. Follow up: Private Physician; When: 2 - 3 days; Reason: If symptoms return, Further diagnostic work-up, Recheck today's complaints, Continuance of care, Re-evaluation by your physician. Follow up: Bakari Mendez; When: 2 - 3 days; Reason: If symptoms return, Further diagnostic work-up, Recheck today's complaints, Continuance of care, Re-evaluation by your physician. Problem is an acute exacerbation. Symptoms have improved. kdr
[2019-06-19 11:04] VITALS: BP 116/73; TEMP 97.6; O2SAT 100
== END 2019-06-19 10:59 | disposition home or self-care (01) ==
LOC: ER 08:31
DX: N20.0 Calculus of kidney (principal); R31.9 Hematuria, unspecified; F17.210 Nicotine dependence, cigarettes, uncomplicated; Z87.442 Personal history of urinary calculi
CPT/HCPCS: 36415; 74176; 76377; 80048; 80076; 81003; 81025; 83690; 85025; 99284

== ENCOUNTER 2019-08-14 08:49 | Emergency (ER) | payer OTHER ==
[2019-08-14] MEDS ORDERED: KETOROLAC 30 MG/ML INJ ONE (09:23)
--- NOTE | 2019-08-14 09:52 | EDPHYS ---
Physician Documentation [facility] Name: Edel Willingham Age: 34 yrs Sex: Female : 1985 Arrival Date: 08/14/2019 Time: 08:52 Bed 19 Private MD: None, None ED Physician Cas Frias HPI: 08/14 09:36 This 34 yrs old Female presents to ER via Ambulatory with complaints of Flu snw Symptoms. 09:36 Onset: The symptoms/episode began/occurred gradually, 3 day(s) ago, and became snw persistent. Associated signs and symptoms: Pertinent positives: congestion, cough, headache, nausea. It is unknown whether or not the patient has had similar symptoms in the past. The patient has not recently seen a physician. 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 - Social history:: Smoking status: Patient uses tobacco products, smokes one-half pack cigarettes per day. - Ebola Screening: : Patient negative for fever greater than or equal to 101.5 degrees Fahrenheit, and additional compatible Ebola Virus Disease symptoms Patient denies exposure to infectious person Patient denies travel to an Ebola-affected area in the 21 days before illness onset No symptoms or risks identified at this time. ROS: 09:24 Eyes: Negative for injury, pain, redness, and discharge. snw 09:24 Neck: Negative for injury, pain, and swelling, Cardiovascular: Negative for chest pain, palpitations, and edema, Respiratory: Negative for shortness of breath, cough, wheezing, and pleuritic chest pain. 09:24 Back: Negative for injury and pain, : Negative for injury, bleeding, discharge, and swelling, MS/Extremity: Negative for injury and deformity, Skin: Negative for injury, rash, and discoloration. 09:24 Constitutional: Positive for chills. 09:24 ENT: Positive for nasal discharge, sinus congestion. 09:24 Abdomen/GI: Positive for nausea. 09:24 Neuro: Positive for headache. Exam: 09:24 Head/Face: Normocephalic, atraumatic. Eyes: Pupils equal round and reactive to light, snw extra-ocular motions intact. Lids and lashes normal. Conjunctiva and sclera are non-icteric and not injected. Cornea within normal limits. Periorbital areas with no swelling, redness, or edema. 09:24 Neck: Trachea midline, no thyromegaly or masses palpated, and no cervical lymphadenopathy. Supple, full range of motion without nuchal rigidity, or vertebral point tenderness. No Meningismus. Chest/axilla: Normal chest wall appearance and motion. Nontender with no deformity. No lesions are appreciated. Cardiovascular: Regular rate and rhythm with a normal S1 and S2. No gallops, murmurs, or rubs. Normal PMI, no JVD. No pulse deficits. Respiratory: Lungs have equal breath sounds bilaterally, clear to auscultation and percussion. No rales, rhonchi or wheezes noted. No increased work of breathing, no retractions or nasal flaring. Abdomen/GI: Soft, non-tender, with normal bowel sounds. No distension or tympany. No guarding or rebound. No evidence of tenderness throughout. Back: No spinal tenderness. No costovertebral tenderness. Full range of motion. Skin: Warm, dry with normal turgor. Normal color with no rashes, no lesions, and no evidence of cellulitis. MS/ Extremity: Pulses equal, no cyanosis. Neurovascular intact. Full, normal range of motion. Neuro: Awake and alert, GCS 15, oriented to person, place, time, and situation. Cranial nerves II-XII grossly intact. Motor strength 5/5 in all extremities. Sensory grossly intact. Cerebellar exam normal. Normal gait. Psych: Awake, alert, with orientation to person, place and time. Behavior, mood, and affect are within normal limits. 09:24 Constitutional: The patient appears alert, awake, obese, uncomfortable. 09:24 ENT: External ear(s): are unremarkable, TM's: are normal, Nose: congestion, Posterior pharynx: erythema, that is moderate, Voice: is normal. Vital Signs: 09:03 BP 113 / 78; Pulse 69; Resp 17; Temp 98.5(O); Pulse Ox 100% on R/A; Weight 113.4 kg; mh5 Height 5 ft. 5 in. (165.10 cm); Pain 0/10; 09:03 Body Mass Index 41.60 (113.40 kg, 165.10 cm) 5 MDM: 09:05 Patient medically screened. snw 10:20 Data reviewed: vital signs, nurses notes. Data interpreted: Pulse oximetry: on room air snw is 100 %. Interpretation: normal. Counseling: I had a detailed discussion with the patient and/or guardian regarding: the historical points, exam findings, and any diagnostic results supporting the discharge/admit diagnosis, lab results, the need for outpatient follow up, to return to the emergency department if symptoms worsen or persist or if there are any questions or concerns that arise at home. Special discussion: I have referred the patient to see his PCP for further evaluation of high blood pressure. Based on the history and exam findings, there is no indication for further emergent testing or inpatient evaluation. I discussed with the patient/guardian the need to see the primary care provider for further evaluation of the symptoms. 08/14 09:15 Order name: Flu 08/14 09:15 Order name: Strep 08/14 09:34 Order name: Group A Streptococcus Rapid Sc; Complete Time: 09:44 EDMS 08/14 09:45 Order name: Influenza Screen (A ; Complete Time: 09:49 EDMS Administered Medications: 09:23 Drug: TORadol 30 mg Route: IM; Site: left deltoid; em 09:51 Follow up: Response: No adverse reaction; Pain is decreased em Disposition: 14:59 Co-signature as Attending Physician, Cas Frias MD. rn Disposition: 08/14/19 09:50 Discharged to Home. Impression: Acute bronchitis. - Condition is Stable. - Discharge Instructions: Acute Bronchitis, Adult, Fever, Adult, Cough, Adult, Rehydration, Adult. - Prescriptions for Zyrtec 10 mg Oral Tablet - take 1 tablet by ORAL route once daily As needed; 20 tablet. Tessalon Perles 100 mg Oral Capsule - take 1 capsule by ORAL route every 8 hours As needed; 15 capsule. Prednisone 20 mg Oral Tablet - take 2 tablet by ORAL route once daily for 5 days; 10 tablet. Pepcid 20 mg Oral Tablet - take 1 tablet by ORAL route once daily for 10 days; 10 tablet. - Work release form, Medication Reconciliation Form, Thank You Letter, Antibiotic Education, Prescription Opioid Use form. - Follow up: Private Physician; When: 2 - 3 days; Reason: Recheck today's complaints, Continuance of care, Re-evaluation by your physician. Follow up: Emergency Department; When: As needed; Reason: Worsening of condition. Signatures: Dispatcher [employer] JOSELisa Vermay, JADON-C MIXER DIAMOND POWDER-Csnw Gurdeep Rodríguez, PHYSICIAN OFFICE REP PHYSICIAN OFFICE REP em Ivon Easley RN RN iw Cas Frias MD MD barnworker groom: (The following items were deleted from the chart) 10:01 09:50 08/14/2019 09:50 Discharged to Home. Impression: Acute bronchitis. Condition is em Stable. Forms are Medication Reconciliation Form, Thank You Letter, Antibiotic Education, Prescription Opioid Use. Follow up: Private Physician; When: 2 - 3 days; Reason: Recheck today's complaints, Continuance of care, Re-evaluation by your physician. Follow up: Emergency Department; When: As needed; Reason: Worsening of condition. snw
--- NOTE | 2019-08-14 09:52 | ER ---
Nurse's Notes [facility] Name: Edel Willingham Age: 34 yrs Sex: Female : 1985 Arrival Date: 08/14/2019 Time: 08:52 Bed 19 Private MD: None, None Diagnosis: Acute bronchitis Presentation: 08/14 09:11 Presenting complaint: Patient states: cough, congestion, headache, nausea, feels iw drained X days, no fever. Transition of care: patient was not received from another setting of care. Onset of symptoms was August 12, 2019. Risk Assessment: Do you want to hurt yourself or someone else? Patient reports no desire to harm self or others. Initial Sepsis Screen: Does the patient meet any 2 criteria? No. Patient's initial sepsis screen is negative. Does the patient have a suspected source of infection? No. Patient's initial sepsis screen is negative. Care prior to arrival: None. 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 - Social history:: Smoking status: Patient uses tobacco products, smokes one-half pack cigarettes per day. - Ebola Screening: : Patient negative for fever greater than or equal to 101.5 degrees Fahrenheit, and additional compatible Ebola Virus Disease symptoms Patient denies exposure to infectious person Patient denies travel to an Ebola-affected area in the 21 days before illness onset No symptoms or risks identified at this time. Screenin:27 Abuse screen: Denies threats or abuse. Nutritional screening: No deficits noted. em Tuberculosis screening: No symptoms or risk factors identified. Fall Risk None identified. Assessment: 09:29 General: Appears in no apparent distress. comfortable, Behavior is calm, cooperative, em Denies fever. Pain: Complains of pain in head Pain currently is 0 out of 10 on a pain scale. Neuro: Level of Consciousness is awake, alert, obeys commands, Oriented to person, place, time, situation, Appropriate for age Reports headache. Cardiovascular: Capillary refill < 3 seconds Patient's skin is warm and dry. Respiratory: Reports cough that is non-productive, Airway is patent Respiratory effort is even, unlabored, Respiratory pattern is regular, symmetrical, Breath sounds are clear bilaterally. GI: Reports nausea, Patient currently denies vomiting. Derm: Skin is intact, is healthy with good turgor, Skin is pink, warm \T\ dry. Musculoskeletal: Capillary refill < 3 seconds, Range of motion: intact in all extremities. Vital Signs: 09:03 BP 113 / 78; Pulse 69; Resp 17; Temp 98.5(O); Pulse Ox 100% on R/A; Weight 113.4 kg; 5 Height 5 ft. 5 in. (165.10 cm); Pain 0/10; 09:03 Body Mass Index 41.60 (113.40 kg, 165.10 cm) [facility] ED Course: 08:52 Patient arrived in ED. mr 08:52 None, None is Private Physician. mr 09:04 Patient has correct armband on for positive identification. Bed in low position. Call [facility] light in reach. Pulse ox on. NIBP on. 09:06 Katiuska Finch FNP-C is PHCP. snw 09:06 Cas Frias MD is Attending Physician. snw 09:12 Triage completed. iw 09:13 Arm band placed on. iw 09:15 Gurdeep Rodríguez LVN is Primary Nurse. em 09:28 Flu and/or RSV swab sent to lab. Strep swab sent to lab. [facility] 10:00 No provider procedures requiring assistance completed. Patient did not have IV access em during this emergency room visit. Administered Medications: 09:23 Drug: TORadol 30 mg Route: IM; Site: left deltoid; em 09:51 Follow up: Response: No adverse reaction; Pain is decreased em Outcome: 09:50 Discharge ordered by . snw 10:00 Discharged to home ambulatory. em 10:00 Condition: good 10:00 Discharge instructions given to patient, Instructed on discharge instructions, follow up and referral plans. medication usage, Demonstrated understanding of instructions, follow-up care, medications, Prescriptions given X 4. 10:01 Patient left the ED. em Signatures: Katiuska Finch FNP-C AZURE PRINCIPAL SOLUTION SPECIALIST-Jocelyn Mitchell mr Gurdeep Rodríguez LVN APPETIZER PACKER Ivon Mobley, RN RN christina Payton, Mignon [facility]
[2019-08-14 10:07] VITALS: BP 113/78; TEMP 98.5; O2SAT 100
== END 2019-08-14 10:01 | disposition home or self-care (01) ==
LOC: ER 08:49
DX: J20.9 Acute bronchitis, unspecified (principal); F17.210 Nicotine dependence, cigarettes, uncomplicated
CPT/HCPCS: 87070; 87081; 87804; 96372; 99284

== ENCOUNTER 2019-10-26 10:05 | Emergency (ER) | payer OTHER ==
[2019-10-26 11:06] LABS: Urine Blood NEGATIVE (NEG); Urine Glucose NEGATIVE (NEG); Urine Protein NEGATIVE (NEG); Urine pH 8.5 (5.0-7.0)
[2019-10-26] MEDS ORDERED: KETOROLAC 30 MG/ML INJ ONE (11:19)
[2019-10-26 11:33] LABS: Urine Bacteria <20 /HPF (<20); Urine Culture Reflex Order NOT NEEDED; Urine RBC NONE SEEN /HPF (NONE SEEN)
[2019-10-26 11:34] LABS: Urine Amorphous Sediment 2+ /HPF (NONE SEEN)
--- NOTE | 2019-10-26 11:39 | RAD REPORT ---
EXAM DESCRIPTION: CT - Stone Protocol - 10/26/2019 11:24 am CLINICAL HISTORY: Kidney stones;Abd pain COMPARISON: Stone Protocol dated 06/19/2019 TECHNIQUE: Axial 3 mm thick images were obtained without oral or IV contrast. The [id number] span s the entirety of the system including uppermost abdomen and lung bases. All CT scans are performed using dose optimization technique as appropriate and may include automated exposure control or mA/KV adjustment according to patient size. FINDINGS: No hydronephrosis is present and no obstructing ureteral calculi. Multiple bilateral 2-6 m m calyx calculi are present not substantially different from May 2019. No suspicious renal masses . Isodense masses and pyelonephritis are not excluded on a stone protocol CT scan. No urinary bladder suspicious finding. No significant adrenal finding. Uterus and ovaries show no suspicious findings. Imaged portions of the liver, spleen and pancreas show no suspicious findings on non-contrast imaging . Gallbladder is contracted. Gallstones can be occult. No active gallbladder process seen. Biliary tr ee is normal. No suspicious bowel findings. Appendix is normal. No hernia, mass or bulky lymphadenopathy noted. No free air, free fluid or inflammatory stranding. No significant bony abnormality. IMPRESSION: Bilateral nonobstructing 2-6 mm calyx calculi similar to May 2019. No hydronephrosis, obstructing calculus or other acute finding seen. Isodense masses and pyelonephritis are not excluded on stone protocol technique. 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 No abnormality seen to explain left lower quadrant and left flank pa in pattern.
--- NOTE | 2019-10-26 12:19 | EDPHYS ---
Physician Documentation [facility] Name: Edel Willingham Age: 34 yrs Sex: Female : 1985 Arrival Date: 10/26/2019 Time: 10:09 Bed 20 Private MD: ED Physician Barak Aguirre HPI: 10/25 11:22 This 34 yrs old Female presents to ER via Ambulatory with complaints of snw Possible Kidney Stone. 11:22 Onset: The symptoms/episode began/occurred suddenly, 1 day(s) ago, and became snw persistent. Associated signs and symptoms: Pertinent positives: abdominal pain, LMP 2 weeks ago. Modifying factors: The patient symptoms are alleviated by nothing. The patient has experienced similar episodes in the past. The patient has not recently seen a physician, [facility]. 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 - Social history:: Smoking status: Patient denies any tobacco usage or history of. ROS: 11:18 Constitutional: Negative for fever, chills, and weight loss, Eyes: Negative for injury, snw pain, redness, and discharge, ENT: Negative for injury, pain, and discharge, Neck: Negative for injury, pain, and swelling, Cardiovascular: Negative for chest pain, palpitations, and edema, Respiratory: Negative for shortness of breath, cough, wheezing, and pleuritic chest pain, Back: Negative for injury and pain, : Negative for injury, bleeding, discharge, and swelling, MS/Extremity: Negative for injury and deformity, Skin: Negative for injury, rash, and discoloration, Neuro: Negative for headache, weakness, numbness, tingling, and seizure, Psych: Negative for depression, anxiety, suicide ideation, homicidal ideation, and hallucinations. 11:18 Abdomen/GI: Positive for abdominal pain, of the left lower quadrant. Exam: 11:15 Constitutional: This is a well developed, well nourished patient who is awake, alert, snw and in no acute distress. Head/Face: Normocephalic, atraumatic. Eyes: Pupils equal round and reactive to light, extra-ocular motions intact. Lids and lashes normal. Conjunctiva and sclera are non-icteric and not injected. Cornea within normal limits. Periorbital areas with no swelling, redness, or edema. ENT: Nares patent. No nasal discharge, no septal abnormalities noted. Tympanic membranes are normal and external auditory canals are clear. Oropharynx with no redness, swelling, or masses, exudates, or evidence of obstruction, uvula midline. Mucous membranes moist. Neck: Trachea midline, no thyromegaly or masses palpated, and no cervical lymphadenopathy. Supple, full range of motion without nuchal rigidity, or vertebral point tenderness. No Meningismus. Chest/axilla: Normal chest wall appearance and motion. Nontender with no deformity. No lesions are appreciated. Cardiovascular: Regular rate and rhythm with a normal S1 and S2. No gallops, murmurs, or rubs. Normal PMI, no JVD. No pulse deficits. Respiratory: Lungs have equal breath sounds bilaterally, clear to auscultation and percussion. No rales, rhonchi or wheezes noted. No increased work of breathing, no retractions or nasal flaring. Back: No spinal tenderness. No costovertebral tenderness. Full range of motion. Skin: Warm, dry with normal turgor. Normal color with no rashes, no lesions, and no evidence of cellulitis. MS/ Extremity: Pulses equal, no cyanosis. Neurovascular intact. Full, normal range of motion. Neuro: Awake and alert, GCS 15, oriented to person, place, time, and situation. Cranial nerves II-XII grossly intact. Motor strength 5/5 in all extremities. Sensory grossly intact. Cerebellar exam normal. Normal gait. Psych: Awake, alert, with orientation to person, place and time. Behavior, mood, and affect are within normal limits. 11:15 Psych: Awake, alert, with orientation to person, place and time. Behavior, mood, and affect are within normal limits. 11:15 Abdomen/GI: Inspection: bruising, Bowel sounds: normal, in all quadrants, in the left lower quadrant, Palpation: moderate abdominal tenderness, in the left lower quadrant. Vital Signs: 10:30 BP 129 / 89; Pulse 78; Resp 14; Temp 97.3(TE); Pulse Ox 98% on R/A; Weight 117.93 kg; ss Height 5 ft. 5 in. (165.10 cm); Pain 7/10; 11:31 BP 119 / 73; Pulse 89; Resp 17 S; Pulse Ox 99% on R/A; ca1 12:38 BP 118 / 78; Pulse 80; Resp 18; Temp 98; Pulse Ox 100% on R/A; mg2 10:30 Body Mass Index 43.27 (117.93 kg, 165.10 cm) ss MDM: 10:50 Patient medically screened. snw 12:19 Data reviewed: vital signs, nurses notes. Data interpreted: Pulse oximetry: on room air snw is 99 %. Interpretation:. Counseling: I had a detailed discussion with the patient and/or guardian regarding: the historical points, exam findings, and any diagnostic results supporting the discharge/admit diagnosis, lab results, radiology results, the need for outpatient follow up, to return to the emergency department if symptoms worsen or persist or if there are any questions or concerns that arise at home. Special discussion: Based on the patient's Hx, exam, and Dx evaluation, there is no indication for emergent surgery or inpatient Tx. It is understood by the patient/guardian that if the Sx's persist or worsen they need to return immediately for re-evaluation. Based on the history and exam findings, there is no indication for further emergent testing or inpatient evaluation. I discussed with the patient/guardian the need to see the primary care provider for further evaluation of the symptoms. 10/25 10:11 Order name: Urine Culture on license of [facility] 10/25 10:11 Order name: Urine Microscopic Only; Complete Time: 11:35 snw 10/25 11:01 Order name: Urine Dipstick--Ancillary (enter results) bd 10/25 11:01 Order name: Urine --Ancillary (enter results) bd 10/25 11:06 Order name: Urine --Ancillary EDMT 10/25 11:06 Order name: Urine Dipstick-Ancillary EDMT 10/25 10:11 Order name: Urine Test (obtain specimen); Complete Time: 11:00 snw 10/25 10:11 Order name: Urine Dipstick-Ancillary (obtain specimen); Complete Time: 11:00 snw 10/25 11:07 Order name: CT Stone Protocol; Complete Time: 12:14 snw Administered Medications: 11:17 Drug: TORadol 30 mg Route: IM; Site: right gluteus; ca1 12:25 Follow up: Response: No adverse reaction mg2 Disposition: 14:51 Co-signature as Attending Physician, Barak Aguirre MD I agree with the assessment and [facility] plan of care. Disposition: 10/26/19 12:18 Discharged to Home. Impression: Lower abdominal pain, unspecified. - Condition is Stable. - Discharge Instructions: Abdominal Pain, Adult, Pain Without a Known Cause. - Prescriptions for Bentyl 20 mg Oral Tablet - take 1 tablet by ORAL route every 6 hours As needed; 20 tablet. promethazine 25 mg Oral Tablet - take 1 tablet by ORAL route every 6 hours As needed; 20 tablet. - Work release form, Medication Reconciliation Form, Thank You Letter, Antibiotic Education, Prescription Opioid Use form. - Follow up: Private Physician; When: 2 - 3 days; Reason: Recheck today's complaints, Continuance of care, Re-evaluation by your physician. Follow up: Emergency Department; When: As needed; Reason: Worsening of condition. Signatures: Dispatcher [employer] Barak Corrigan MD MD cha Therrien, Shelly, COMMUNICATION ENGINEER-C COMMUNICATION ENGINEER-Csnw Jany Gurrola RN RN ss Payam Anaya RN RN mg2 Nica Majano RN RN ca1 Corrections: (The following items were deleted from the chart) 12:39 12:18 10/26/2019 12:18 Discharged to Home. Impression: Lower abdominal pain, mg2 unspecified. Condition is Stable. Forms are Medication Reconciliation Form, Thank You Letter, Antibiotic Education, Prescription Opioid Use. Follow up: Private Physician; When: 2 - 3 days; Reason: Recheck today's complaints, Continuance of care, Re-evaluation by your physician. Follow up: Emergency Department; When: As needed; Reason: Worsening of condition. snw
--- NOTE | 2019-10-26 12:19 | ER ---
Nurse's Notes [facility] Name: Edel Willingham Age: 34 yrs Sex: Female : 1985 Arrival Date: 10/26/2019 Time: 10:09 Bed 20 Private MD: Diagnosis: Lower abdominal pain, unspecified Presentation: 10/25 10:30 Chief complaint: Patient states: LLQ pain that radiates towards L flank that began ss yesterday. Pt reports a hx of kidney stones and states that this pain feels similar. Coronavirus screen: The patient has NOT traveled to [place] in the past 14 days. Proceed with normal triage procedures. Ebola Screen: Patient denies exposure to infectious person. Patient denies travel to an Ebola-affected area in the 21 days before illness onset. Initial Sepsis Screen: Does the patient meet any 2 criteria? No. Patient's initial sepsis screen is negative. Does the patient have a suspected source of infection? No. Patient's initial sepsis screen is negative. Risk Assessment: Do you want to hurt yourself or someone else? Patient reports no desire to harm self or others. 10:30 Method Of Arrival: Ambulatory ss 10:30 Acuity: PHILLIP 3 ss 11:02 Onset of symptoms was October 26, 2019. 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 - Social history:: Smoking status: Patient denies any tobacco usage or history of. Screenin:59 Abuse screen: Denies threats or abuse. Denies injuries from another. Nutritional ca1 screening: No deficits noted. Tuberculosis screening: No symptoms or risk factors identified. Fall Risk None identified. Assessment: 10:59 General: Appears in no apparent distress. comfortable, Behavior is calm, cooperative, ca1 appropriate for age. Pain: Complains of pain in suprapubic area, posterior aspect of left lateral abdomen, anterior aspect of left lateral abdomen and left lower quadrant Pain currently is 7 out of 10 on a pain scale. Quality of pain is described as sharp, Pain began 1 day ago. Is intermittent. Neuro: Level of Consciousness is awake, alert, obeys commands, Oriented to person, place, time, situation, Appropriate for age. Cardiovascular: Heart tones S1 S2 present Capillary refill < 3 seconds Patient's skin is warm and dry. Respiratory: Airway is patent Respiratory effort is even, unlabored, Respiratory pattern is regular, symmetrical, Breath sounds are clear bilaterally. GI: Abdomen is round non-distended, Bowel sounds present X 4 quads. Abd is soft X 4 quads Abdomen is tender to palpation in suprapubic area and left lower quadrant Reports nausea, vomiting. : Reports burning with urination, urgency, urinary frequency. EENT: No deficits noted. No signs and/or symptoms were reported regarding the EENT system. Derm: Skin is intact, is healthy with good turgor, Skin is pink, warm \T\ dry. Musculoskeletal: Circulation, motion, and sensation intact. Capillary refill < 3 seconds. 11:31 Reassessment: Patient appears in no apparent distress at this time. Patient and/or ca1 family updated on plan of care and expected duration. Pain level reassessed. Patient is alert, oriented x 3, equal unlabored respirations, skin warm/dry/pink. 12:38 Reassessment: Patient denies pain at this time. Patient states feeling better. Patient mg2 states symptoms have improved. Vital Signs: 10:30 BP 129 / 89; Pulse 78; Resp 14; Temp 97.3(TE); Pulse Ox 98% on R/A; Weight 117.93 kg; ss Height 5 ft. 5 in. (165.10 cm); Pain 7/10; 11:31 BP 119 / 73; Pulse 89; Resp 17 S; Pulse Ox 99% on R/A; ca1 12:38 BP 118 / 78; Pulse 80; Resp 18; Temp 98; Pulse Ox 100% on R/A; mg2 10:30 Body Mass Index 43.27 (117.93 kg, 165.10 cm) ED Course: 10:09 Patient arrived in ED. mr 10:11 Katiuska Finch FNP-C is PHCP. snw 10:11 Barak Aguirre MD is Attending Physician. snw 10:31 Triage completed. ss 10:32 Arm band placed on right wrist. ss 10:51 Nica Majano, LESLIE is Primary Nurse. ca1 10:59 Patient has correct armband on for positive identification. Bed in low position. Call ca1 light in reach. Side rails up X 1. Pulse ox on. NIBP on. Warm blanket given. 11:25 CT Stone Protocol In Process Unspecified. EDMS 12:37 No provider procedures requiring assistance completed. Patient did not have IV access mg2 during this emergency room visit. Administered Medications: 11:17 Drug: TORadol 30 mg Route: IM; Site: right gluteus; ca1 12:25 Follow up: Response: No adverse reaction mg2 Outcome: 12:18 Discharge ordered by MD. porter 12:38 Discharged to home ambulatory. mg2 12:38 Condition: stable 12:38 Discharge instructions given to patient, Instructed on discharge instructions, follow up and referral plans. medication usage, Demonstrated understanding of instructions, follow-up care, medications, Prescriptions given X 2. 12:39 Patient left the ED. mg2 Signatures: Dispatcher [employer] EDMS Katiuska Finch, ENGINEERING ADMINISTRATOR-C ENGINEERING ADMINISTRATOR-Csnw LozanoJocelyn mr Jany Gurrola RN RN Payam Anaya RN RN mg2 Nica Majano RN RN ca1
[2019-10-26 12:49] VITALS: BP 118/78; TEMP 98; O2SAT 100
== END 2019-10-26 12:39 | disposition home or self-care (01) ==
LOC: ER 10:05
DX: R10.32 Left lower quadrant pain (principal); Z87.442 Personal history of urinary calculi
CPT/HCPCS: 74176; 76377; 81003; 81015; 81025; 87086; 87088; 96372; 99284

== ENCOUNTER 2020-06-17 09:25 | Emergency (ER) | payer OTHER ==
--- NOTE | 2020-06-17 09:50 | ER ---
Nurse's Notes [facility] Name: Edel Willingham Age: 35 yrs Sex: Female : 1985 Arrival Date: 06/17/2020 Time: 09:28 Bed 16 Private MD: Diagnosis: Radial styloid tenosynovitis [de Quervain]-right thumb Presentation: 06/17 09:33 Chief complaint: Patient states: right thumb pain for years, pain is worse when she sv tries to grab something. 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 Coronavirus screen: Client denies travel out of the [place] in the last 14 days. At this time, the client does not indicate any symptoms associated with coronavirus-19. Ebola Screen: No symptoms or risks identified at this time. Initial Sepsis Screen: Does the patient meet any 2 criteria? No. Patient's initial sepsis screen is negative. Does the patient have a suspected source of infection? No. Patient's initial sepsis screen is negative. Risk Assessment: Do you want to hurt yourself or someone else? Patient reports no desire to harm self or others. Onset of symptoms is unknown. 09:33 Method Of Arrival: Ambulatory sv 09:33 Acuity: PHILLIP 4 sv Triage Assessment: 09:33 General: Appears in no apparent distress. comfortable, obese, well developed, Behavior sv is calm, cooperative, appropriate for age. Pain: Complains of pain in right thumb. Neuro: Level of Consciousness is awake, alert, obeys commands, Oriented to person, place, time, situation. Respiratory: Respiratory effort is even, unlabored. Derm: Skin is normal. 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 - Social history:: Smoking status: Patient reports the use of cigarette tobacco products, smokes one pack cigarettes per day. Screenin:35 Abuse screen: Denies threats or abuse. Denies injuries from another. Nutritional sv screening: No deficits noted. Tuberculosis screening: No symptoms or risk factors identified. Fall Risk None identified. Assessment: 09:58 Reassessment: Patient appears in no apparent distress at this time. No changes from sv previously documented assessment. Patient and/or family updated on plan of care and expected duration. Pain level reassessed. Patient is alert, oriented x 3, equal unlabored respirations, skin warm/dry/pink. Vital Signs: 09:33 BP 120 / 69; Pulse 65; Resp 16; Temp 98; Pulse Ox 100% ; Weight 117.93 kg; Height 5 ft. sv 5 in. (165.10 cm); Pain 3/10; 09:33 Body Mass Index 43.26 (117.93 kg, 165.10 cm) sv ED Course: 09:28 Patient arrived in ED. bp1 09:29 Barak Raines PA is PHCP. cp 09:29 Arash Banuelos MD is Attending Physician. cp 09:35 Triage completed. sv 09:35 Arm band placed on. sv 09:35 Patient has correct armband on for positive identification. Bed in low position. Call sv light in reach. Door closed. Head of bed elevated. 09:49 Marshall Ghotra MD is Referral Physician. cp 09:58 Tameka Garcia, LESLIE is Primary Nurse. sv 09:58 No provider procedures requiring assistance completed. Patient did not have IV access sv during this emergency room visit. Velcro wrist splint applied to right wrist. thumb spica. Administered Medications: No medications were administered Outcome: 09:50 Discharge ordered by MD. cp 09:58 Discharged to home ambulatory. sv 09:58 Condition: stable 09:58 Discharge instructions given to patient, Instructed on discharge instructions, follow up and referral plans. medication usage, thumb spica wrist Demonstrated understanding of instructions, follow-up care, splint care, Prescriptions given X 1. 10:02 Patient left the ED. sv Signatures: Tameka Garcia RN RN sv Barak Raines PA PA cp Abril Khan bp1 Corrections: (The following items were deleted from the chart) 09:36 09:33 Pulse 65bpm; Resp 16bpm; Pulse Ox 100%; Temp 98F; 117.93 kg; Height 5 ft. 5 in.; sv BMI: 43.2; Pain 3/10; sv
--- NOTE | 2020-06-17 09:50 | EDPHYS ---
Physician Documentation [facility] Name: Edel Willingham Age: 35 yrs Sex: Female : 1985 Arrival Date: 06/17/2020 Time: 09:28 Bed 16 Private MD: ED Physician Arash Banuelos HPI: 06/17 09:42 This 35 yrs old Female presents to ER via Ambulatory with complaints of Hand cp Pain. 09:42 The patient or guardian reports pain, tenderness. The complaints affect the right cp dorsal side of thumb. Context: resulted from an unknown cause. Onset: The symptoms/episode began/occurred for years, worse over past several days. Associated signs and symptoms: Pertinent negatives: cyanosis distally, numbness distally. Severity of symptoms: in the emergency department the symptoms are unchanged, despite home interventions. Patient denies injury to right hand and reports being right hand dominant. FIRST HELPER: 09:35 LMP 05/15/2020 sv Historical: - Allergies: 09:35 No Known Allergies; sv - PMHx: 09:35 Kidney stones; sv - PSHx: 09:35 ; sv - Immunization history:: Flu vaccine is not up to date. - Social history:: Smoking status: Patient reports the use of cigarette tobacco products, smokes one pack cigarettes per day. ROS: 09:45 Constitutional: Negative for body aches, chills, fever, poor PO intake. cp 09:45 MS/extremity: Positive for pain, tenderness, of the dorsal side of right thumb, Negative for injury or acute deformity, paresthesias. 09:45 Skin: Negative for cellulitis, rash. 09:45 Neuro: Positive for weakness, of the right thumb, Negative for numbness, tingling. 09:45 All other systems are negative. Exam: 09:46 Head/Face: Normocephalic, atraumatic. cp 09:46 Constitutional: The patient appears in no acute distress, alert, awake, non-toxic, well developed, well nourished. 09:46 Chest/axilla: Inspection: normal. 09:46 Cardiovascular: Rate: normal. 09:46 Respiratory: the patient does not display signs of respiratory distress, Respirations: normal, no use of accessory muscles, labored breathing, is not present. 09:46 Musculoskeletal/extremity: Extremities: grossly normal except: noted in the dorsal side of right thumb extending to wrist: pain, tenderness, ROM: limited active range of motion due to pain, in the metacarpal phalangeal joint of right thumb, Perfusion: the extremity is normally perfused throughout, Sensation intact. Tendon exam: postive for pain to palpation along dorsal tendon of right thumb. 09:46 Skin: cellulitis, is not appreciated, no rash present. Vital Signs: 09:33 BP 120 / 69; Pulse 65; Resp 16; Temp 98; Pulse Ox 100% ; Weight 117.93 kg; Height 5 ft. sv 5 in. (165.10 cm); Pain 3/10; 09:33 Body Mass Index 43.26 (117.93 kg, 165.10 cm) sv MDM: 09:37 Patient medically screened. cp 09:50 Data reviewed: vital signs, nurses notes. cp 09:50 Differential diagnosis: dislocation, closed fracture, contusion, tendonitis. cp Counseling: I had a detailed discussion with the patient and/or guardian regarding: the historical points, exam findings, and any diagnostic results supporting the discharge/admit diagnosis, the need for outpatient follow up, a hand specialist, to return to the emergency department if symptoms worsen or persist or if there are any questions or concerns that arise at home. 06/17 09:46 Order name: Thumb Spica Splint; Complete Time: 09:51 cp Administered Medications: No medications were administered Disposition: 10:05 Chart complete. cp 14:34 Co-signature as Attending Physician, Arash Banuelos MD I agree with the assessment and kdr plan of care. Disposition: 06/17/20 09:50 Discharged to Home. Impression: Radial styloid tenosynovitis [de Quervain] - right thumb. - Condition is Stable. - Discharge Instructions: De Quervain Tenosynovitis Surgical Release, De Quervain Tenosynovitis. - Prescriptions for Diclofenac Sodium 75 mg Oral Tablet Sustained Release - take 1 tablet by ORAL route 2 times per day; 30 tablet. - Work release form, Medication Reconciliation Form, Thank You Letter, Antibiotic Education, Prescription Opioid Use form. - Follow up: Marshall Ghotra MD; When: 1 week; Reason: pain continues. - Problem is chronic. - Symptoms are unchanged. Signatures: Tameka Garcia RN RN sv Rittger, Kevin, MD MD [facility] Barak Raines PA PA cp Corrections: (The following items were deleted from the chart) 10: 09:50 06/17/2020 09:50 Discharged to Home. Impression: Radial styloid tenosynovitis [de sv Quervain] - right thumb. Condition is Stable. Forms are Work release form, Medication Reconciliation Form, Thank You Letter, Antibiotic Education, Prescription Opioid Use. Follow up: Marshall Ghotra; When: 1 week; Reason: pain continues. Problem is chronic. Symptoms are unchanged. cp
[2020-06-17 10:08] VITALS: BP 120/69; TEMP 98; O2SAT 100
== END 2020-06-17 10:02 | disposition home or self-care (01) ==
LOC: ER 09:25
DX: M65.4 Radial styloid tenosynovitis [de Quervain] (principal); F17.210 Nicotine dependence, cigarettes, uncomplicated
CPT/HCPCS: 99283

== ENCOUNTER 2021-03-28 12:17 | Emergency (ER) | payer OTHER ==
--- NOTE | 2021-03-28 13:48 | ER ---
Nurse's Notes [facility] Name: Edel Willingham Age: 36 yrs Sex: Female : 1985 Arrival Date: 03/28/2021 Time: 12:24 Bed Waiting Private MD: Diagnosis: ED Course: 03/28 12:24 Patient arrived in ED. mr 13:47 Barak Aguirre MD is Attending Physician. aa5 Administered Medications: No medications were administered Outcome: 13:47 Patient left the ED. aa5 Signatures: Jocelyn Lozano Audri, RN RN aa5
== END 2021-03-28 13:47 | disposition left against medical advice (07) ==
LOC: ER 12:17
DX: Z02.9 Encounter for administrative examinations, unspecified (principal)

== ENCOUNTER 2022-09-02 06:29 | Emergency (ER) | payer OTHER ==
--- OUTSIDE RECORDS SUMMARY | 2022-09-02 06:33 | XMS REPORT | Continuity of Care Document ---
:1985 Author Organization [facility] t Address [address] [place] [address] Care Team Providers Name Role Phone Demetria DSOUZA, [facility] Primary Care Physician [phone] Problems This patient has no known problems. Allergies, Adverse Reactions, Alerts This patient has no known allergies or adverse reactions. Medications Ordered Filled Start Stop Current Ordering Indication Dosage Frequency Signature Comments Components Source Medication Medication Date Date Medication? Clinician (SIG) Name Name Dose 2021-0 No Unknown 3-28 00:00: 00 Dose 2022-0 No Unknown 3-28 00:00: 00 Dose 2022-0 No Unknown 3-28 00:00: 00 Dose 2022-0 No Unknown 3-28 00:00: 00 Dose 2022-0 No Unknown 3-28 00:00: 00 Dose 2022-0 No Unknown 3-28 00:00: 00 Dose 2022-0 No Unknown 3-28 00:00: 00 Dose 2022-0 No Unknown 3-28 00:00: 00 Dose 2022-0 No Unknown 3-28 00:00: 00 Dose 2022-0 No Unknown 3-28 00:00: 00 Dose 2022-0 No Unknown 3-28 00:00: 00 Dose 2022-0 No Unknown 3-28 00:00: 00 Dose 2022-0 No Unknown 3-28 00:00: 00 Dose 2022-0 No Unknown 3-28 00:00: 00 Dose 2022-0 No Unknown 3-28 00:00: 00 Dose 2022-0 No Unknown 3-28 00:00: 00 Dose 2022-0 No Unknown 3-28 00:00: 00 Dose 2022-0 No Unknown 3-28 00:00: 00 Dose 2022-0 No Unknown 3-28 00:00: 00 Dose 2022-0 No Unknown 3-28 00:00: 00 Dose 2022-0 No Unknown 3-28 00:00: 00 Dose 2022-0 No Unknown 3-28 00:00: 00 Dose 2022-0 No Unknown 3-28 00:00: 00 Dose 2022-0 No Unknown 3-28 00:00: 00 Dose 2022-0 No Unknown 3-28 00:00: 00 Dose 2022-0 No Unknown 3-28 00:00: 00 Dose 2022-0 No Unknown 3-28 00:00: 00 Dose 2022-0 No Unknown 3-28 00:00: 00 Dose 2022-0 No Unknown 3-28 00:00: 00 Dose 2022-0 No Unknown 3-28 00:00: 00 Dose 2022-0 No Unknown 3-28 00:00: 00 Dose 2022-0 No Unknown 3-28 00:00: 00 Dose 2022-0 No Unknown 3-28 00:00: 00 Dose 2022-0 No Unknown 3-28 00:00: 00 Dose 2022-0 No Unknown 3-28 00:00: 00 Dose 2022-0 No Unknown 3-28 00:00: 00 Dose 2022-0 No Unknown 3-28 00:00: 00 Dose 2022-0 No Unknown 3-28 00:00: 00 Dose 2022-0 No Unknown 3-28 00:00: 00 Dose 2022-0 No Unknown 3-28 00:00: 00 Dose 2022-0 No Unknown 3-28 00:00: 00 Dose 2022-0 No Unknown 3-28 00:00: 00 Dose 2022-0 No Unknown 3-28 00:00: 00 Dose 2022-0 No Unknown 3-28 00:00: 00 Dose 2022-0 No Unknown 3-28 00:00: 00 Dose 2022-0 No Unknown 3-28 00:00: 00 Dose 2022-0 No Unknown 3-28 00:00: 00 Dose 2022-0 No Unknown 3-28 00:00: 00 Dose 2022-0 No Unknown 3-28 00:00: 00 Dose 2022-0 No Unknown 3-28 00:00: 00 Dose 2022-0 No Unknown 3-28 00:00: 00 Dose 2022-0 No Unknown 3-28 00:00: 00 Dose 2022-0 No Unknown 3-28 00:00: 00 Dose 2022-0 No Unknown 3-28 00:00: 00 Dose 2022-0 No Unknown 3-28 00:00: 00 Dose 2022-0 No Unknown 3-28 00:00: 00 Dose 2022-0 No Unknown 3-28 00:00: 00 Dose 2022-0 No Unknown 3-28 00:00: 00 Dose 2022-0 No Unknown 3-28 00:00: 00 Dose 2022-0 No Unknown 3-28 00:00: 00 Dose 2022-0 No Unknown 3-28 00:00: 00 Dose 2022-0 No Unknown 3-28 00:00: 00 Dose 2022-0 No Unknown 3-28 00:00: 00 Dose 2022-0 No Unknown 3-28 00:00: 00 Dose 2022-0 No Unknown 3-28 00:00: 00 Dose 2022-0 No Unknown 3-28 00:00: 00 Dose 2022-0 No Unknown 3-28 00:00: 00 Dose 2022-0 No Unknown 3-28 00:00: 00 Dose 2022-0 No Unknown 3-28 00:00: 00 Dose 2022-0 No Unknown 3-28 00:00: 00 Dose 2022-0 No Unknown 3-28 00:00: 00 Dose 2022-0 No Unknown 3-28 00:00: 00 Dose 2022-0 No Unknown 3-28 00:00: 00 Dose 2022-0 No Unknown 3-28 00:00: 00 Dose 2022-0 No Unknown 3-28 00:00: 00 Dose 2022-0 No Unknown 3-28 00:00: 00 Dose 2022-0 No Unknown 3-28 00:00: 00 Dose 2022-0 No Unknown 3-28 00:00: 00 Dose 2021-1 No Unknown 0-22 00:00: 00 Dose 2021-1 No Unknown 0-22 00:00: 00 Dose 2021-0 No Unknown 7-27 00:00: 00 Dose 2021-0 No Unknown 7-27 00:00: 00 Dose 2021-0 No Unknown 7-27 00:00: 00 Dose 2021-0 No Unknown 7-27 00:00: 00 Dose 2021-0 No Unknown 3-16 00:00: 00 Dose 2021-0 No Unknown 3-16 00:00: 00 Dose 2020-0 No Unknown 3-16 00:00: 00 Dose 2020-0 No Unknown 3-16 00:00: 00 Dose 2019-1 No Unknown 2-29 00:00: 00 Dose 2019-1 No Unknown 2-29 00:00: 00 Dose 2019-1 No Unknown 2-29 00:00: 00 Dose 2019-1 No Unknown 2-29 00:00: 00 Dose 2019-0 No Unknown 8-12 00:00: 00 Dose 2019-0 No Unknown 8-12 00:00: 00 Dose 2019-0 No Unknown 8-10 00:00: 00 Dose 2019-0 No Unknown 8-10 00:00: 00 Dose 2019-0 No Unknown 5-15 00:00: 00 Dose 2020-0 No Unknown 5-15 00:00: 00 Caladryl 1 2020-0 No 1% %-8 % 3-30 lotion 00:00: 00 Caladryl 1 2020-0 No 1% %-8 % 3-30 lotion 00:00: 00 Dose 2020-0 No Unknown 3-10 00:00: 00 Dose 2020-0 No Unknown 3-10 00:00: 00 Dose 2019-0 No Unknown 2-21 00:00: 00 Dose 2019-0 No Unknown 2-21 00:00: 00 Dose 2019-0 No Unknown 2-21 00:00: 00 Dose 2020-0 No Unknown 2-21 00:00: 00 Dose 2020-0 No Unknown 2-21 00:00: 00 Dose 2020-0 No Unknown 2-21 00:00: 00 Dose 2019-0 No Unknown 1-24 00:00: 00 Dose 2020-0 No Unknown 1-24 00:00: 00 amoxicillin 2018-1 No 1mg 875 mg 0-08 tablet 00:00: 00 Bromfed DM 2018-1 No 10mg/5 2 mg-30 0-08 mL mg-10 mg/5 00:00: mL oral 00 syrup amoxicillin 2018-1 No 1mg 875 mg 0-08 tablet 00:00: 00 Bromfed DM 2019-1 No 10mg/5 2 mg-30 0-08 mL mg-10 mg/5 00:00: mL oral 00 syrup amoxicillin 2018-0 No 1mg 875 mg 8-23 tablet 00:00: 00 amoxicillin 2019-0 No 1mg 875 mg 8-23 tablet 00:00: 00 hydroxyzine 2019-0 No 1mg HCl 25 mg 7-17 tablet 00:00: 00 hydroxyzine 2019-0 No 1mg HCl 25 mg 7-17 tablet 00:00: 00 amoxicillin 2019-0 No 1mg 500 mg 6-28 capsule 00:00: 00 amoxicillin 2019-0 No 1mg 500 mg 6-28 capsule 00:00: 00 Medrol 2019-0 No mg (Willy) 4 mg 6-11 tablets in 00:00: a dose pack 00 Medrol 2019-0 No mg (Willy) 4 mg 6-11 tablets in 00:00: a dose pack 00 hydroxyzine 2019-0 No 1mg HCl 25 mg 6-01 tablet 00:00: 00 hydroxyzine 2019-0 No 1mg HCl 25 mg 6-01 tablet 00:00: 00 prednisone 2019-0 No 2mg 20 mg 5-23 tablet 00:00: 00 prednisone 2019-0 No 2mg 20 mg 5-23 tablet 00:00: 00 Bactrim DS 2019-0 No 1mg 800 mg-160 4-23 mg tablet 00:00: 00 Bactrim DS 2019-0 No 1mg 800 mg-160 4-23 mg tablet 00:00: 00 fluticasone 2019-0 No 2mcg/ac propionate 3-18 tuation 50 00:00: mcg/actuati 00 on nasal spray,suspe nsion loratadine 2019-0 No 1mg 10 mg 3-18 tablet 00:00: 00 benzonatate 2019-0 No 1mg 100 mg 3-18 capsule 00:00: 00 fluticasone 2019-0 No 2mcg/ac propionate 3-18 tuation 50 00:00: mcg/actuati 00 on nasal spray,suspe nsion loratadine 2019-0 No 1mg 10 mg 3-18 tablet 00:00: 00 benzonatate 2019-0 No 1mg 100 mg 3-18 capsule 00:00: 00 fluoxetine 2017-0 No 1mg 10 mg 9-27 tablet 00:00: 00 hydroxyzine 2017-0 No 12mg HCl 25 mg 9-27 tablet 00:00: 00 fluoxetine 2017-0 No 1mg 10 mg 9-27 tablet 00:00: 00 hydroxyzine 2017-0 No 12mg HCl 25 mg 9-27 tablet 00:00: 00 Vital Signs Vital Name Observation Time Observation Value Comments Source BP Systolic 2022-08-28 09:00:00 117 mm[Hg] BP Diastolic 2022-08-28 09:00:00 81 mm[Hg] Weight Measured 2022-08-28 09:00:00 239.60 pounds Height Measured 2022-08-28 09:00:00 66.54 inches Body Temperature 2022-08-28 09:00:00 98.10 degrees Heart Rate 2022-08-28 09:00:00 85.00 /min Respiratory Rate 2022-08-28 09:00:00 18.00 /min BP Systolic 2021-08-22 17:25:00 BP Diastolic 2021-08-22 17:25:00 Weight Measured 2021-08-22 17:25:00 200.00 pounds Height Measured 2021-08-22 17:25:00 66.54 inches Body Temperature 2021-08-22 17:25:00 Heart Rate 2021-08-22 17:25:00 Respiratory Rate 2021-08-22 17:25:00 BP Diastolic 2021-06-16 17:36:00 66 mm[Hg] Weight Measured 2021-06-16 17:36:00 206.80 pounds Height Measured 2021-06-16 17:36:00 66.54 inches Body Temperature 2021-06-16 17:36:00 98.70 degrees Heart Rate 2021-06-16 17:36:00 81.00 /min Respiratory Rate 2021-06-16 17:36:00 BP Systolic 2021-06-16 17:36:00 99 mm[Hg] BP Systolic 2021-03-21 10:02:00 106 mm[Hg] BP Diastolic 2021-03-21 10:02:00 66 mm[Hg] Weight Measured 2021-03-21 10:02:00 205.80 pounds Height Measured 2021-03-21 10:02:00 66.54 inches Body Temperature 2021-03-21 10:02:00 97.70 degrees Heart Rate 2021-03-21 10:02:00 78.00 /min Respiratory Rate 2021-03-21 10:02:00 17.00 /min BP Systolic 2020-11-08 13:59:00 106 mm[Hg] BP Diastolic 2020-11-08 13:59:00 65 mm[Hg] Weight Measured 2020-11-08 13:59:00 214.00 pounds Height Measured 2020-11-08 13:59:00 66.54 inches Body Temperature 2020-11-08 13:59:00 99.10 degrees Heart Rate 2020-11-08 13:59:00 75.00 /min Respiratory Rate 2020-11-08 13:59:00 18.00 /min BP Systolic 2020-01-08 16:14:00 96 mm[Hg] BP Diastolic 2020-01-08 16:14:00 64 mm[Hg] Weight Measured 2020-01-08 16:14:00 270.20 pounds Height Measured 2020-01-08 16:14:00 66.54 inches Body Temperature 2020-01-08 16:14:00 98.50 degrees Heart Rate 2020-01-08 16:14:00 70.00 /min Respiratory Rate 2020-01-08 16:14:00 16.00 /min BP Systolic 2019-11-23 14:00:00 124 mm[Hg] BP Diastolic 2019-11-23 14:00:00 76 mm[Hg] Weight Measured 2019-11-23 14:00:00 271.40 pounds Height Measured 2019-11-23 14:00:00 66.54 inches Body Temperature 2019-11-23 14:00:00 99.00 degrees Heart Rate 2019-11-23 14:00:00 83.00 /min Respiratory Rate 2019-11-23 14:00:00 BP Systolic 2019-10-16 16:10:00 117 mm[Hg] BP Diastolic 2019-10-16 16:10:00 78 mm[Hg] Weight Measured 2019-10-16 16:10:00 266.40 pounds Height Measured 2019-10-16 16:10:00 66.54 inches Body Temperature 2019-10-16 16:10:00 98.70 degrees Heart Rate 2019-10-16 16:10:00 74.00 /min Respiratory Rate 2019-10-16 16:10:00 BP Systolic 2019-09-18 14:46:00 100 mm[Hg] BP Diastolic 2019-09-18 14:46:00 71 mm[Hg] Weight Measured 2019-09-18 14:46:00 269.20 pounds Height Measured 2019-09-18 14:46:00 66.54 inches Body Temperature 2019-09-18 14:46:00 99.20 degrees Heart Rate 2019-09-18 14:46:00 69.00 /min Respiratory Rate 2019-09-18 14:46:00 18.00 /min BP Systolic 2019-06-26 10:42:00 110 mm[Hg] BP Diastolic 2019-06-26 10:42:00 78 mm[Hg] Weight Measured 2019-06-26 10:42:00 269.60 pounds Height Measured 2019-06-26 10:42:00 65.00 inches Body Temperature 2019-06-26 10:42:00 98.40 degrees Heart Rate 2019-06-26 10:42:00 69.00 /min Respiratory Rate 2019-06-26 10:42:00 BP Systolic 2019-06-02 16:38:00 108 mm[Hg] BP Diastolic 2019-06-02 16:38:00 70 mm[Hg] Weight Measured 2019-06-02 16:38:00 269.00 pounds Height Measured 2019-06-02 16:38:00 65.00 inches Body Temperature 2019-06-02 16:38:00 99.10 degrees Heart Rate 2019-06-02 16:38:00 73.00 /min Respiratory Rate 2019-06-02 16:38:00 18.00 /min Procedures This patient has no known procedures. Plan of Care Planned Activity Planned Date Details Comments Source Goal Plan of Care Note [code = 69410-1] Goal Plan of Care Note [code = 56973-9] Goal Plan of Care Note [code = 90476-1] Goal Plan of Care Note [code = 94951-1] Goal Plan of Care Note [code = 30519-8] Goal Plan of Care Note [code = 24591-6] Goal Plan of Care Note [code = 39836-7] Goal Plan of Care Note [code = 11463-1] Goal Plan of Care Note [code = 97168-9] Goal Plan of Care Note [code = 29493-9] Goal Plan of Care Note [code = 42509-5] Goal Plan of Care Note [code = 06909-6] Goal Plan of Care Note [code = 44771-6] Goal Plan of Care Note [code = 92846-0] Goal Plan of Care Note [code = 94588-7] Goal Plan of Care Note [code = 61922-0] Goal Plan of Care Note [code = 00248-5] Goal Plan of Care Note [code = 67598-7] Goal Plan of Care Note [code = 86055-4] Goal Plan of Care Note [code = 55085-5] Goal Plan of Care Note [code = 87963-0] Goal Plan of Care Note [code = 19167-2] Goal Plan of Care Note [code = 37412-0] Goal Plan of Care Note [code = 38870-0] Goal Plan of Care Note [code = 71378-9] Goal Plan of Care Note [code = 60485-0] Goal Plan of Care Note [code = 94485-4] Goal Plan of Care Note [code = 41884-9] Goal Plan of Care Note [code = 84293-3] Goal Plan of Care Note [code = 17999-0] Goal Plan of Care Note [code = 19750-0] Goal Plan of Care Note [code = 44341-2] Goal Plan of Care Note [code = 25894-6] Goal Plan of Care Note [code = 61661-0] Goal Plan of Care Note [code = 21358-6] Goal Plan of Care Note [code = 38070-3] Goal Plan of Care Note [code = 67187-9] Goal Plan of Care Note [code = 58996-0] Goal Plan of Care Note [code = 18725-1] Goal Plan of Care Note [code = 84603-7] Goal Plan of Care Note [code = 96205-0] Goal Plan of Care Note [code = 87642-0] Goal Plan of Care Note [code = 36914-9] Goal Plan of Care Note [code = 23208-5] Goal Plan of Care Note [code = 83867-0] Goal Plan of Care Note [code = 82363-3] Goal Plan of Care Note [code = 49725-9] Goal Plan of Care Note [code = 13514-1] Goal Plan of Care Note [code = 24969-8] Goal Plan of Care Note [code = 78704-1] Goal Plan of Care Note [code = 19631-8] Goal Plan of Care Note [code = 48684-7] Goal Plan of Care Note [code = 60351-8] Goal Plan of Care Note [code = 08301-7] Goal Plan of Care Note [code = 45601-5] Goal Plan of Care Note [code = 37331-4] Goal Plan of Care Note [code = 30016-3] Goal Plan of Care Note [code = 40488-8] Goal Plan of Care Note [code = 12373-8] Goal Plan of Care Note [code = 32320-6] Goal Plan of Care Note [code = 44755-6] Goal Plan of Care Note [code = 91243-9] Goal Plan of Care Note [code = 24333-2] Goal Plan of Care Note [code = 76715-3] Goal Plan of Care Note [code = 11404-2] Goal Plan of Care Note [code = 62488-1] Goal Plan of Care Note [code = 45814-7] Goal Plan of Care Note [code = 29063-9] Goal Plan of Care Note [code = 24006-3] Goal Plan of Care Note [code = 31710-1] Goal Plan of Care Note [code = 02659-9] Goal Plan of Care Note [code = 01949-3] Goal Plan of Care Note [code = 90857-5] Goal Plan of Care Note [code = 06246-1] Goal Plan of Care Note [code = 16522-6] Goal Plan of Care Note [code = 63653-4] Goal Plan of Care Note [code = 60570-8] Goal Plan of Care Note [code = 14230-5] Goal Plan of Care Note [code = 03293-7] Goal Plan of Care Note [code = 02551-2] Goal Plan of Care Note [code = 98050-2] Goal Plan of Care Note [code = 97448-4] Goal Plan of Care Note [code = 81314-3] Goal Plan of Care Note [code = 22948-7] Goal Plan of Care Note [code = 17240-3] Goal Plan of Care Note [code = 03389-0] Goal Plan of Care Note [code = 34837-6] Goal Plan of Care Note [code = 27174-2] Goal Plan of Care Note [code = 29699-0] Goal Plan of Care Note [code = 82317-8] Encounters Start End Encounter Admission Attending Care Care Encounter Source Date/Time Date/Time Type Type Clinicians Facility Department ID 2022-08-28 2022-08-28 Outpatient [facility] [id number] Jalen 08:56:06 08:56:06 0103 F Yinka 2022-08-28 2022-08-28 Outpatient [id number] 00:00:00 00:00:00 Visit [id number] bef33e 2022-08-14 2022-08-14 Outpatient [facility] [id number] Jalen 11:45:52 11:45:52 1220 F Yinka 2022-08-14 2022-08-14 Outpatient [id number]- [id number] 00:00:00 00:00:00 Visit [id number] [id number] Results Test Description Test Time Test Comments Results Result Comments Source SARS-CoV-2 (COVID-19), RT-PCR/TMA 2021-11-21 17:18:54 Test Item Value Reference Range Interpretation Comme nts SARS-CoV-2 INTERPRETATION NEGATIVE SEE NOTE S ARS-CoV-2 RNA NOT (test code = 07428) DETECTED Negative results do not preclude SARS-C oV-2 infection and should notbe us ed as the sole basis for patie nt management decisions. Nega tiveresults must be combined wit h clinical observations, p atient history,and epidemiological information. Optimum specime n types and timingfor peak viral levels during infectio ns caused by SARS-CoV-2 have notbeen determined. Col lection of multiple specim ens or types ofspecimens may be necessary to detect virus. I mproper specimencollect ion and handling, sequence variab ility under primers/probes, or organism present below t he limit of detection may l ead to falsenegative r esults. Positive and negative pr edictive values oftesting are h ighly dependent on prevalence. Fal se negative testresults are more likely when prevalence is h igh. EFFECTIVE 11/06/2021, SPU BRITT SPECIMENS CAN NO LONGER BE TE STED WITHTHIS ORDER CODE. FOR SALIVA, ORAL FLUID TESTING A ND SPECIMENREQUIRE MENTS, PLEASE REFER TO ORDER CODE 3509. SOURCE (test code = 59996) NOT SPECIFIED Note: Methodology is Emmy Oscar Real-Time RT-PC R. The expected result or refer ence range is NEGATIVE (Not D etected). For more information reg arding COVID-19 testing to incl ude clinicalinforma tion, methodology detail, intende d use, FDA authorization a ndrecommended fact sheets for marcial ents or healthcare providers, see [employer] Announcement: S ARS-CoV-2 (COVID-19) by N AAT at URL below (note,fact shee ts are provided by method given in report:[email or web address] Alternatively, see downloadable PDF fact sheet at:[email or web address] UNLES S OTHERWISE INDICATED, ALL TESTING PERFORMED [facility], [place] [address] 4 SHOT PEENING OPERATOR: GAMALIEL REED M.D. CLIA NUMBER [id number] CAP ACCREDITATION N O. [id number] SARS-CoV-2 (COVID-19) by RT-PCR (HIGH RISK)2021-11-21 00:00:00 Test Item Value Reference Range Interpretation Comments SARS-CoV-2 INTERPRETATION (test NEGATIVE code = 76562) SOURCE (test code = 46375) NOT SPECIFIED SARS-CoV-2 (COVID-19) by RT-PCR (HIGH RISK)2021-11-21 00:00:00 Test Item Value Reference Range Interpretation Comments SARS-CoV-2 INTERPRETATION (test NEGATIVE code = 05266) SOURCE (test code = 21683) NOT SPECIFIED SARS-CoV-2 (COVID-19) by RT-PCR (HIGH RISK)2021-11-21 00:00:00 Test Item Value Reference Range Interpretation Comments SARS-CoV-2 INTERPRETATION (test NEGATIVE code = 56090) SOURCE (test code = 42660) NOT SPECIFIED SARS-CoV-2 (COVID-19) by RT-PCR (HIGH RISK)2021-11-21 00:00:00 Test Item Value Reference Range Interpretation Comments SARS-CoV-2 INTERPRETATION (test NEGATIVE code = 62797) SOURCE (test code = 36386) NOT SPECIFIED ENVIRONMENTAL IgE [id number] 00:00:00 Test Item Value Reference Range Interpretation Comments D. PTERONYSSINUS IgE (test code = <0.10 KU/L 43966) D. PTERONYS. CLASS (test code = 38269) D. FARINAE IgE (test code = 68275) <0.10 KU/L D. FARINAE CLASS (test code = 11740) CAT EPITHELIUM IgE (test code = <0.10 KU/L 29225) CAT EPITHELIUM CLASS (test code = 90550) DOG DANDER IgE (test code = 22641) <0.10 KU/L DOG DANDER CLASS (test code = 27758) COCKROACH, BRUNEIAN IgE (test code = <0.10 KU/L 73245) COCKROACH, GRMN CLS (test code = 85194) CHICKEN FEATHERS IgE (test code = <0.10 KU/L 54022) CHICKEN FEATHER CLS (test code = 35500) GOOSE FEATHERS IgE (test code = <0.10 KU/L 04146) GOOSE FEATHERS CLASS (test code = 44524) ENVIRONMENTAL IgE [id number] 00:00:00 Test Item Value Reference Range Interpretation Comments D. PTERONYSSINUS IgE (test code = <0.10 KU/L 61372) D. PTERONYS. CLASS (test code = 93732) D. FARINAE IgE (test code = 58872) <0.10 KU/L D. FARINAE CLASS (test code = 47869) CAT EPITHELIUM IgE (test code = <0.10 KU/L 81699) CAT EPITHELIUM CLASS (test code = 13366) DOG DANDER IgE (test code = 05623) <0.10 KU/L DOG DANDER CLASS (test code = 14024) COCKROACH, BRUNEIAN IgE (test code = <0.10 KU/L 52954) COCKROACH, GRMN CLS (test code = 33790) CHICKEN FEATHERS IgE (test code = <0.10 KU/L 46557) CHICKEN FEATHER CLS (test code = 25180) GOOSE FEATHERS IgE (test code = <0.10 KU/L 40531) GOOSE FEATHERS CLASS (test code = 64440) FOOD ALLERGY IgE [id number] 00:00:00 Test Item Value Reference Range Interpretation Comments EGG WHITE IgE (test code = 63988) <0.10 KU/L EGG WHITE CLASS (test code = 78738) PEANUT IgE (test code = 36711) <0.10 KU/L PEANUT CLASS (test code = 86107) SOYBEAN IgE (test code = 26818) <0.10 KU/L SOYBEAN CLASS (test code = 63282) MILK IgE (test code = 19242) <0.10 KU/L MILK CLASS (test code = 69702) CLAM IgE (test code = 16322) <0.10 KU/L CLAM CLASS (test code = 50120) SHRIMP IgE (test code = 32905) <0.10 KU/L SHRIMP CLASS (test code = 61648) WALNUT IgE (test code = 75323) <0.10 KU/L WALNUT CLASS (test code = 80017) COD FISH IgE (test code = 35057) <0.10 KU/L COD FISH CLASS (test code = 86421) SCALLOP IgE (test code = 68581) <0.10 KU/L SCALLOP CLASS (test code = 54809) WHEAT IgE (test code = 54676) <0.10 KU/L WHEAT CLASS (test code = 82054) CORN IgE (test code = 17438) <0.10 KU/L CORN CLASS (test code = 06923) SESAME SEED IgE (test code = <0.10 KU/L 03226) SESAME SEED CLASS (test code = 41180) FOOD ALLERGY IgE [id number] 00:00:00 Test Item Value Reference Range Interpretation Comments EGG WHITE IgE (test code = 54414) <0.10 KU/L EGG WHITE CLASS (test code = 75113) PEANUT IgE (test code = 97826) <0.10 KU/L PEANUT CLASS (test code = 95679) SOYBEAN IgE (test code = 33044) <0.10 KU/L SOYBEAN CLASS (test code = 51399) MILK IgE (test code = 06212) <0.10 KU/L MILK CLASS (test code = 16744) CLAM IgE (test code = 48556) <0.10 KU/L CLAM CLASS (test code = 29290) SHRIMP IgE (test code = 81884) <0.10 KU/L SHRIMP CLASS (test code = 84199) WALNUT IgE (test code = 85879) <0.10 KU/L WALNUT CLASS (test code = 88254) COD FISH IgE (test code = 84389) <0.10 KU/L COD FISH CLASS (test code = 65270) SCALLOP IgE (test code = 39452) <0.10 KU/L SCALLOP CLASS (test code = 42840) WHEAT IgE (test code = 54937) <0.10 KU/L WHEAT CLASS (test code = 48438) CORN IgE (test code = 05742) <0.10 KU/L CORN CLASS (test code = 55628) SESAME SEED IgE (test code = <0.10 KU/L 76449) SESAME SEED CLASS (test code = 76874) CPL ALLERGENS [REFLEX]2019-02-04 00:00:00 Test Item Value Reference Range Interpretation Comments INTERPRETATION: (test code = 1989) (NOTE) ENVIRONMENTAL IgE [id number] 00:00:00 Test Item Value Reference Range Interpretation Comments D. PTERONYSSINUS IgE (test code = <0.10 KU/L 62416) D. PTERONYS. CLASS (test code = 40751) D. FARINAE IgE (test code = 10605) <0.10 KU/L D. FARINAE CLASS (test code = 16016) CAT EPITHELIUM IgE (test code = <0.10 KU/L 57729) CAT EPITHELIUM CLASS (test code = 20745) DOG DANDER IgE (test code = 11079) <0.10 KU/L DOG DANDER CLASS (test code = 09956) COCKROACH, BRUNEIAN IgE (test code = <0.10 KU/L 78402) COCKROACH, GRMN CLS (test code = 97671) CHICKEN FEATHERS IgE (test code = <0.10 KU/L 45765) CHICKEN FEATHER CLS (test code = 23998) GOOSE FEATHERS IgE (test code = <0.10 KU/L 20029) GOOSE FEATHERS CLASS (test code = 49865) ENVIRONMENTAL IgE [id number] 00:00:00 Test Item Value Reference Range Interpretation Comments D. PTERONYSSINUS IgE (test code = <0.10 KU/L 01830) D. PTERONYS. CLASS (test code = 64473) D. FARINAE IgE (test code = 37061) <0.10 KU/L D. FARINAE CLASS (test code = 27491) CAT EPITHELIUM IgE (test code = <0.10 KU/L 86386) CAT EPITHELIUM CLASS (test code = 08853) DOG DANDER IgE (test code = 31326) <0.10 KU/L DOG DANDER CLASS (test code = 02697) COCKROACH, BRUNEIAN IgE (test code = <0.10 KU/L 35370) COCKROACH, GRMN CLS (test code = 40522) CHICKEN FEATHERS IgE (test code = <0.10 KU/L 81521) CHICKEN FEATHER CLS (test code = 87945) GOOSE FEATHERS IgE (test code = <0.10 KU/L 72754) GOOSE FEATHERS CLASS (test code = 35146) FOOD ALLERGY IgE [id number] 00:00:00 Test Item Value Reference Range Interpretation Comments EGG WHITE IgE (test code = 49756) <0.10 KU/L EGG WHITE CLASS (test code = 77225) PEANUT IgE (test code = 30208) <0.10 KU/L PEANUT CLASS (test code = 65003) SOYBEAN IgE (test code = 15537) <0.10 KU/L SOYBEAN CLASS (test code = 28298) MILK IgE (test code = 11666) <0.10 KU/L MILK CLASS (test code = 85826) CLAM IgE (test code = 01857) <0.10 KU/L CLAM CLASS (test code = 59537) SHRIMP IgE (test code = 79547) <0.10 KU/L SHRIMP CLASS (test code = 45079) WALNUT IgE (test code = 26054) <0.10 KU/L WALNUT CLASS (test code = 69177) COD FISH IgE (test code = 63384) <0.10 KU/L COD FISH CLASS (test code = 18310) SCALLOP IgE (test code = 93703) <0.10 KU/L SCALLOP CLASS (test code = 19463) WHEAT IgE (test code = 76672) <0.10 KU/L WHEAT CLASS (test code = 17190) CORN IgE (test code = 91741) <0.10 KU/L CORN CLASS (test code = 83660) SESAME SEED IgE (test code = <0.10 KU/L 22215) SESAME SEED CLASS (test code = 93118) FOOD ALLERGY IgE [id number] 00:00:00 Test Item Value Reference Range Interpretation Comments EGG WHITE IgE (test code = 04631) <0.10 KU/L EGG WHITE CLASS (test code = 92608) PEANUT IgE (test code = 17613) <0.10 KU/L PEANUT CLASS (test code = 35478) SOYBEAN IgE (test code = 06802) <0.10 KU/L SOYBEAN CLASS (test code = 29041) MILK IgE (test code = 94248) <0.10 KU/L MILK CLASS (test code = 96327) CLAM IgE (test code = 43173) <0.10 KU/L CLAM CLASS (test code = 80767) SHRIMP IgE (test code = 01230) <0.10 KU/L SHRIMP CLASS (test code = 89064) WALNUT IgE (test code = 66620) <0.10 KU/L WALNUT CLASS (test code = 57040) COD FISH IgE (test code = 74396) <0.10 KU/L COD FISH CLASS (test code = 24686) SCALLOP IgE (test code = 46964) <0.10 KU/L SCALLOP CLASS (test code = 85035) WHEAT IgE (test code = 23359) <0.10 KU/L WHEAT CLASS (test code = 35161) CORN IgE (test code = 87400) <0.10 KU/L CORN CLASS (test code = 71202) SESAME SEED IgE (test code = <0.10 KU/L 68903) SESAME SEED CLASS (test code = 32430) CPL ALLERGENS [REFLEX]2019-02-04 00:00:00 Test Item Value Reference Range Interpretation Comments INTERPRETATION: (test code = 1989) (NOTE) COMPREHENSIVE METABOLIC [id number] 00:00:00 Test Item Value Reference Range Interpretation Comments GLUCOSE (test code = 2217) 106 MG/DL BUN (test code = 2208) 12 MG/DL CREATININE (test code = 2214) 0.90 MG/DL eGFR AMER. (test code 98 ML/MIN/1.73 = 37377) eGFR NON- AMER. (test 85 ML/MIN/1.73 code = 78861) CALC BUN/CREAT (test code = 13 RATIO 2235) SODIUM (test code = 2231) 143 MEQ/L POTASSIUM (test code = 2228) 4.3 MEQ/L CHLORIDE (test code = 2215) 106 MEQ/L CARBON DIOXIDE (test code = 26 MEQ/L 2206) CALCIUM (test code = 2209) 9.3 MG/DL PROTEIN, TOTAL (test code = 7.1 G/DL 222) ALBUMIN (test code = 2201) 4.5 G/DL CALC GLOBULIN (test code = 2.6 G/DL 2240) CALC A/G RATIO (test code = 1.7 RATIO 2234) BILIRUBIN, TOTAL (test code = <0.2 MG/DL 2206) ALKALINE PHOSPHATASE (test 89 U/L code = 2204) AST (test code = 2218) 18 U/L ALT (test code = 2219) 29 U/L COMPREHENSIVE METABOLIC [id number] 00:00:00 Test Item Value Reference Range Interpretation Comments GLUCOSE (test code = 2217) 106 MG/DL BUN (test code = 2208) 12 MG/DL CREATININE (test code = 2214) 0.90 MG/DL eGFR AMER. (test code 98 ML/MIN/1.73 = 08246) eGFR NON- AMER. (test 85 ML/MIN/1.73 code = 46736) CALC BUN/CREAT (test code = 13 RATIO 2235) SODIUM (test code = 2231) 143 MEQ/L POTASSIUM (test code = 2228) 4.3 MEQ/L CHLORIDE (test code = 2215) 106 MEQ/L CARBON DIOXIDE (test code = 26 MEQ/L 2206) CALCIUM (test code = 2209) 9.3 MG/DL PROTEIN, TOTAL (test code = 7.1 G/DL 2228) ALBUMIN (test code = 2201) 4.5 G/DL CALC GLOBULIN (test code = 2.6 G/DL 2240) CALC A/G RATIO (test code = 1.7 RATIO 2234) BILIRUBIN, TOTAL (test code = <0.2 MG/DL 2206) ALKALINE PHOSPHATASE (test 89 U/L code = 2204) AST (test code = 2218) 18 U/L ALT (test code = 2219) 29 U/L COMPREHENSIVE METABOLIC [id number] 00:00:00 Test Item Value Reference Range Interpretation Comments GLUCOSE (test code = 2217) 106 MG/DL BUN (test code = 2208) 12 MG/DL CREATININE (test code = 2214) 0.90 MG/DL eGFR AMER. (test code 98 ML/MIN/1.73 = 89964) eGFR NON- AMER. (test 85 ML/MIN/1.73 code = 35223) CALC BUN/CREAT (test code = 13 RATIO 2235) SODIUM (test code = 2231) 143 MEQ/L POTASSIUM (test code = 2228) 4.3 MEQ/L CHLORIDE (test code = 2215) 106 MEQ/L CARBON DIOXIDE (test code = 26 MEQ/L 220) CALCIUM (test code = 2209) 9.3 MG/DL PROTEIN, TOTAL (test code = 7.1 G/DL 2228) ALBUMIN (test code = 2201) 4.5 G/DL CALC GLOBULIN (test code = 2.6 G/DL 224) CALC A/G RATIO (test code = 1.7 RATIO 2234) BILIRUBIN, TOTAL (test code = <0.2 MG/DL 2206) ALKALINE PHOSPHATASE (test 89 U/L code = 2204) AST (test code = 2218) 18 U/L ALT (test code = 2219) 29 U/L COMPREHENSIVE METABOLIC [id number] 00:00:00 Test Item Value Reference Range Interpretation Comments GLUCOSE (test code = 2217) 106 MG/DL BUN (test code = 2208) 12 MG/DL CREATININE (test code = 2214) 0.90 MG/DL eGFR AMER. (test code 98 ML/MIN/1.73 = 17003) eGFR NON- AMER. (test 85 ML/MIN/1.73 code = 77868) CALC BUN/CREAT (test code = 13 RATIO 2235) SODIUM (test code = 2231) 143 MEQ/L POTASSIUM (test code = 2228) 4.3 MEQ/L CHLORIDE (test code = 2215) 106 MEQ/L CARBON DIOXIDE (test code = 26 MEQ/L 220) CALCIUM (test code = 2209) 9.3 MG/DL PROTEIN, TOTAL (test code = 7.1 G/DL 2228) ALBUMIN (test code = 2201) 4.5 G/DL CALC GLOBULIN (test code = 2.6 G/DL 0) CALC A/G RATIO (test code = 1.7 RATIO 2233) BILIRUBIN, TOTAL (test code = <0.2 MG/DL 2206) ALKALINE PHOSPHATASE (test 89 U/L code = 2204) AST (test code = 2218) 18 U/L ALT (test code = 2219) 29 U/L HEMOGLOBIN [id number] 00:00:00 Test Item Value Reference Range Interpretation Comments HEMOGLOBIN A1c (test code = 53011) 5.6 % HEMOGLOBIN [id number] 00:00:00 Test Item Value Reference Range Interpretation Comments HEMOGLOBIN A1c (test code = 77598) 5.6 % HEMOGLOBIN [id number] 00:00:00 Test Item Value Reference Range Interpretation Comments HEMOGLOBIN A1c (test code = 85728) 5.6 % HEMOGLOBIN [id number] 00:00:00 Test Item Value Reference Range Interpretation Comments HEMOGLOBIN A1c (test code = 26105) 5.6 % HEMOGLOBIN [id number] 00:00:00 Test Item Value Reference Range Interpretation Comments HEMOGLOBIN A1c (test code = 98319) 5.6 % HEMOGLOBIN [id number] 00:00:00 Test Item Value Reference Range Interpretation Comments HEMOGLOBIN A1c (test code = 33323) 5.6 % CULTURE, [id number] 00:00:00 Test Item Value Reference Range Interpretation Comments CULTURE, URINE (test SPECIMEN NUMBER: code = 31012) [id number] CULTURE, [id number] 00:00:00 Test Item Value Reference Range Interpretation Comments CULTURE, URINE (test SPECIMEN NUMBER: code = 00357) [id number] CULTURE, [id number] 00:00:00 Test Item Value Reference Range Interpretation Comments CULTURE, URINE (test SPECIMEN NUMBER: code = 09823) [id number] CULTURE, [id number] 00:00:00 Test Item Value Reference Range Interpretation Comments CULTURE, URINE (test SPECIMEN NUMBER: code = 08228) [id number] GC AND CHLAMYDIA AMPLIFIED, [id number] 00:00:00 Test Item Value Reference Range Interpretation Comments GONORRHEA, TMA (test code = 92328) NEGATIVE CHLAMYDIA, TMA (test code = 57937) NEGATIVE GC AND CHLAMYDIA AMPLIFIED, [id number] 00:00:00 Test Item Value Reference Range Interpretation Comments GONORRHEA, TMA (test code = 71834) NEGATIVE CHLAMYDIA, TMA (test code = 95231) NEGATIVE PAP TEST, THINPREP, [id number] 00:00:00 Test Item Value Reference Range Interpretation Comments SOURCE: (test code = Cervical/Endocervical 8001) SLIDES: (test code = 1 8011) LMP: (test code = 04-26-2017 8021) SPECIMEN ADEQUACY: (NOTE) (test code = 29560) INTERPRETATION: (test NO EPITHELIAL code = 65699) ABNORMALITY SEE BELOW OTHER COMMENTS: (test (NOTE) code = 8081) BILL OF LADING CLERK: WHITNEY Santoro (test code = 8101) (ASCP) LOCATION: (test code (NOTE) = 55354) CPT: (test code = (NOTE) 8140) PAP TEST, THINPREP, [id number] 00:00:00 Test Item Value Reference Range Interpretation Comments SOURCE: (test code = Cervical/Endocervical 8001) SLIDES: (test code = 1 8011) LMP: (test code = 04-26-2017 8021) SPECIMEN ADEQUACY: (NOTE) (test code = 22660) INTERPRETATION: (test NO EPITHELIAL code = 34579) ABNORMALITY SEE BELOW OTHER COMMENTS: (test (NOTE) code = 8081) BILL OF LADING CLERK: WHITNEY Santoro (test code = 8101) (ASCP) LOCATION: (test code (NOTE) = 63063) CPT: (test code = (NOTE) 8140) HPV HIGH RISK WITH GENOTYPE, [id number] 00:00:00 Test Item Value Reference Range Interpretation Comments HPV HIGH RISK INTERP (test code = NEGATIVE 08104) HPV 16 (test code = 24528) NEGATIVE HPV 18 (test code = 85172) NEGATIVE HPV, HR, OTHER GENOTYPES (test code NEGATIVE = 59921) HPV HIGH RISK WITH GENOTYPE, [id number] 00:00:00 Test Item Value Reference Range Interpretation Comments HPV HIGH RISK INTERP (test code = NEGATIVE 75665) HPV 16 (test code = 50091) NEGATIVE HPV 18 (test code = 96347) NEGATIVE HPV, HR, OTHER GENOTYPES (test code NEGATIVE = 91979) GC AND CHLAMYDIA AMPLIFIED, [id number] 00:00:00 Test Item Value Reference Range Interpretation Comments GONORRHEA, TMA (test code = 00783) NEGATIVE CHLAMYDIA, TMA (test code = 02176) NEGATIVE GC AND CHLAMYDIA AMPLIFIED, [id number] 00:00:00 Test Item Value Reference Range Interpretation Comments GONORRHEA, TMA (test code = 41546) NEGATIVE CHLAMYDIA, TMA (test code = 69958) NEGATIVE PAP TEST, THINPREP, [id number] 00:00:00 Test Item Value Reference Range Interpretation Comments SOURCE: (test code = Cervical/Endocervical 8001) SLIDES: (test code = 1 8011) LMP: (test code = 04-26-2017 8021) SPECIMEN ADEQUACY: (NOTE) (test code = 53798) INTERPRETATION: (test NO EPITHELIAL code = 35693) ABNORMALITY SEE BELOW OTHER COMMENTS: (test (NOTE) code = 8081) BILL OF LADING CLERK: WHITNEY Santoro (test code = 8101) (ASCP) LOCATION: (test code (NOTE) = 39724) CPT: (test code = (NOTE) 8140) PAP TEST, THINPREP, [id number] 00:00:00 Test Item Value Reference Range Interpretation Comments SOURCE: (test code = Cervical/Endocervical 8001) SLIDES: (test code = 1 8011) LMP: (test code = 04-26-2017 8021) SPECIMEN ADEQUACY: (NOTE) (test code = 92769) INTERPRETATION: (test NO EPITHELIAL code = 41587) ABNORMALITY SEE BELOW OTHER COMMENTS: (test (NOTE) code = 8081) BILL OF LADING CLERK: WHITNEY Santoro (test code = 8101) (ASCP) LOCATION: (test code (NOTE) = 54125) CPT: (test code = (NOTE) 8140) HPV HIGH RISK WITH GENOTYPE, [id number] 00:00:00 Test Item Value Reference Range Interpretation Comments HPV HIGH RISK INTERP (test code = NEGATIVE 18814) HPV 16 (test code = 40646) NEGATIVE HPV 18 (test code = 42323) NEGATIVE HPV, HR, OTHER GENOTYPES (test code NEGATIVE = 47232) HPV HIGH RISK WITH GENOTYPE, [id number] 00:00:00 Test Item Value Reference Range Interpretation Comments HPV HIGH RISK INTERP (test code = NEGATIVE 43035) HPV 16 (test code = 70139) NEGATIVE HPV 18 (test code = 45554) NEGATIVE HPV, HR, OTHER GENOTYPES (test code NEGATIVE = 22641)
[2022-09-02] MEDS ORDERED: dexAMETHasone 10 MG/ML VIAL ONE (07:16)
[2022-09-02] MEDS ORDERED: KETOROLAC 30 MG/ML INJ ONE (07:16)
--- NOTE | 2022-09-02 07:58 | ER ---
Nurse's Notes [facility] Name: Edel Willinghma Age: 37 yrs Sex: Female : 1985 Arrival Date: 09/02/2022 Time: 06:33 Bed 6 Private MD: Diagnosis: Radiculopathy, lumbosacral region Presentation: 09/02 06:41 Chief complaint: Patient states: "I am having left lower back pain. It started 3 days as6 ago. My mom thinks its sciatica" pt denies injury or urinary symptoms. Coronavirus screen: At this time, the client does not indicate any symptoms associated with coronavirus-19. Ebola Screen: No symptoms or risks identified at this time. Initial Sepsis Screen: Does the patient meet any 2 criteria? No. Patient's initial sepsis screen is negative. Does the patient have a suspected source of infection? No. Patient's initial sepsis screen is negative. Risk Assessment: Do you want to hurt yourself or someone else? Patient reports no desire to harm self or others. Onset of symptoms was August 30, 2022. 06:41 Method Of Arrival: Ambulatory as6 06:41 Acuity: PHILLIP 4 as6 Triage Assessment: 06:44 General: Appears uncomfortable, Behavior is calm, cooperative. Pain: Complains of pain as6 in low back area. EENT: No deficits noted. Neuro: Level of Consciousness is awake, alert, obeys commands, Oriented to person, place, time, situation. Cardiovascular: Capillary refill < 3 seconds Patient's skin is warm and dry. Respiratory: Respiratory effort is even, unlabored, Respiratory pattern is regular, symmetrical. GI: No deficits noted. : No deficits noted. Derm: Skin is intact, is healthy with good turgor. Musculoskeletal: Reports pain in low back area. 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 Flu vaccine is not up to date. - Social history:: Smoking status: Patient reports the use of cigarette tobacco products, smokes one-half pack cigarettes per day. - Family history:: not pertinent. - Hospitalizations: : No recent hospitalization is reported. Screenin:46 [facility] ED Fall Risk Assessment (Adult) Score/Fall Risk Level 0 - 2 = Low Risk. Abuse as6 screen: Denies threats or abuse. Denies injuries from another. Nutritional screening: No deficits noted. Tuberculosis screening: No symptoms or risk factors identified. Assessment: 06:37 General: Appears comfortable, Behavior is calm, cooperative. Pain: Complains of pain in ha1 low back area Pain does not radiate. Pain currently is 6 out of 10 on a pain scale. Quality of pain is described as throbbing, Pain began 2-3 days ago. Neuro: Level of Consciousness is awake, alert, obeys commands, Oriented to person, place, time, situation. Cardiovascular: Capillary refill < 3 seconds Patient's skin is warm and dry. Respiratory: Airway is patent Trachea midline Respiratory effort is even, unlabored, Respiratory pattern is regular, symmetrical. GI: Abdomen is non-distended, obese, Bowel sounds present X 4 quads. : No signs and/or symptoms were reported regarding the genitourinary system. EENT: No deficits noted. No signs and/or symptoms were reported regarding the EENT system. Derm: Skin is normal. Musculoskeletal: Circulation, motion, and sensation intact. Range of motion: intact in all extremities, Reports pain in low back area. 07:26 Reassessment: Patient appears in no apparent distress at this time. No changes from kc6 previously documented assessment. Patient and/or family updated on plan of care and expected duration. Pain level reassessed. Patient is alert, oriented x 3, equal unlabored respirations, skin warm/dry/pink. client reports pain 5/10 to the left lower back. 07:56 Reassessment: client stated her pain has decreased from a 5/10 to a 2/10. Patient kc6 states feeling better. Patient states symptoms have improved. Vital Signs: 06:37 BP 131 / 80; Pulse 73; Resp 16 S; Pulse Ox 99% on R/A; ha1 06:41 BP 131 / 90; Pulse 73; Resp 18 S; Temp 98.6(O); Pulse Ox 100% on R/A; Weight 104.33 kg as6 (R); Height 5 ft. 6 in. (167.64 cm) (R); Pain 8/10; 07:26 BP 104 / 72; Pulse 62; Resp 18 S; Pulse Ox 98% on R/A; Pain 5/10; kc6 06:41 Body Mass Index 37.12 (104.33 kg, 167.64 cm) as6 ED Course: 06:33 Patient arrived in ED. ja2 06:36 Rupert Red, RN is Primary Nurse. as6 06:44 Triage completed. as6 06:44 Arm band placed on. as6 06:46 Bed in low position. Call light in reach. Side rails up X 1. as6 06:56 Cas Frias MD is Attending Physician. rn 07:25 Inserted saline lock: 20 gauge in right forearm, using aseptic technique. kc6 08:03 No provider procedures requiring assistance completed. IV discontinued, intact, kc6 bleeding controlled, No redness/swelling at site. Pressure dressing applied. Administered Medications: 07:25 Drug: Ketorolac 30 mg Route: IVP; Site: right forearm; kc6 08:04 Follow up: Response: No adverse reaction; Pain is decreased kc6 07:25 Drug: Decadron - Dexamethasone 10 mg Route: IVP; Site: right forearm; kc6 08:04 Follow up: Response: No adverse reaction kc6 Medication: 06:46 VIS not applicable for this client. as6 Outcome: 07:57 Discharge ordered by . rn 08:03 Discharged to home ambulatory. kc6 08:03 Condition: stable 08:03 Discharge instructions given to patient, Instructed on discharge instructions, follow up and referral plans. medication usage, Demonstrated understanding of instructions, follow-up care, medications, Prescriptions given X 3. 08:04 Patient left the ED. kc6 Signatures: Cas Frias MD MD rn Alexander, Jessica ja2 Rupert Red, RN RN as6 Katherin Lennon RN RN ha1 Adriana Vega RN RN kc6 Corrections: (The following items were deleted from the chart) 07:55 07:26 BP 156 / 140; Pulse 62bpm; Resp 18bpm; Spontaneous; Pulse Ox 98% RA; Pain 5/10; kc6 kc6
--- NOTE | 2022-09-02 07:58 | EDPHYS ---
Physician Documentation [facility] Name: Edel Willingham Age: 37 yrs Sex: Female : 1985 Arrival Date: 09/02/2022 Time: 06:33 Bed 6 Private MD: ED Physician Cas Frias HPI: 09/02 07:12 This 37 yrs old Female presents to ER via Ambulatory with complaints of Low rn Back Pain. 07:12 The patient presents with pain that is acute, with no known mechanism of injury. The rn symptoms are located in the low back, left low back. The pain radiates to the left leg. Onset: The symptoms/episode began/occurred 3 day(s) ago. Modifying factors: The patient symptoms are alleviated by nothing, the patient symptoms are aggravated by any movement. Associated signs and symptoms: Pertinent positives: none Pertinent negatives: abdominal pain, chest pain, constipation, dysuria, fever, hematuria, incontinence, nausea, numbness, tingling, urinary retention, vomiting, weakness. Severity of symptoms: At their worst the symptoms were moderate, in the emergency department the symptoms are unchanged. The patient has not experienced similar symptoms in the past. The patient has not recently seen a physician. Pt reports left lower back/buttocks pain, no trauma, + some radiation down left leg. No weakness. No fever. 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 Hx of kidney stones but feels this is different. NO bowel/bladder problems. Better with positioning and when laying down, also better with ice. . 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 Flu vaccine is not up to date. - Social history:: Smoking status: Patient reports the use of cigarette tobacco products, smokes one-half pack cigarettes per day. - Family history:: not pertinent. - Hospitalizations: : No recent hospitalization is reported. ROS: 07:12 Constitutional: Negative for fever, chills, and weight loss, Eyes: Negative for injury, rn pain, redness, and discharge, Neck: Negative for injury, pain, and swelling, Cardiovascular: Negative for chest pain, palpitations, and edema, Respiratory: Negative for shortness of breath, cough, wheezing, and pleuritic chest pain, Abdomen/GI: Negative for abdominal pain, nausea, vomiting, diarrhea, and constipation, Back: + lower back pain MS/Extremity: Negative for injury and deformity, Skin: Negative for injury, rash, and discoloration, Neuro: Negative for headache, weakness, numbness, tingling, and seizure. Exam: 07:12 Constitutional: This is a well developed, well nourished patient who is awake, alert, rn and in no acute distress. Cardiovascular: Regular rate and rhythm. No pulse deficits. Respiratory: No increased work of breathing, no retractions or nasal flaring. Back: No spinal tenderness. No costovertebral tenderness. Slow ROM Skin: Warm, dry with normal turgor. Normal color with no rashes, no lesions, and no evidence of cellulitis. MS/ Extremity: Pulses equal, no cyanosis. Neurovascular intact. Full, normal range of motion. Equal circumference. Neuro: Awake and alert, GCS 15, normal strength throughout Vital Signs: 06:37 BP 131 / 80; Pulse 73; Resp 16 S; Pulse Ox 99% on R/A; ha1 06:41 BP 131 / 90; Pulse 73; Resp 18 S; Temp 98.6(O); Pulse Ox 100% on R/A; Weight 104.33 kg as6 (R); Height 5 ft. 6 in. (167.64 cm) (R); Pain 8/10; 07:26 BP 104 / 72; Pulse 62; Resp 18 S; Pulse Ox 98% on R/A; Pain 5/10; kc6 06:41 Body Mass Index 37.12 (104.33 kg, 167.64 cm) as6 MDM: 06:56 Patient medically screened. rn 07:15 Differential diagnosis: arthritis, strain, sciatica, Herniated disc Kidney stone rn considered but not pursued given patient states this feels totally different from previous kidney stone pain. States when had kidney stone couldn't stay still and was much more painful. This time better when still. Data reviewed: vital signs, nurses notes. Counseling: I had a detailed discussion with the patient and/or guardian regarding: the historical points, exam findings, and any diagnostic results supporting the discharge/admit diagnosis, the need for outpatient follow up, to return to the emergency department if symptoms worsen or persist or if there are any questions or concerns that arise at home. Special discussion: I discussed with the patient/guardian in detail that at this point there is no indication for admission to the hospital. It is understood, however, that if the symptoms persist or worsen the patient needs to return immediately for re-evaluation. Based on the history and exam findings, there is no indication for further emergent testing or inpatient evaluation. I discussed with the patient/guardian the need to see the back specialist for further evaluation of the symptoms. I discussed with the patient/guardian the need to see the primary care provider for further evaluation of the symptoms. 07:54 Response to treatment: the patient's symptoms have mildly improved after treatment, and rn as a result, I will discharge patient. 09/02 07:10 Order name: IV Start; Complete Time: 07:25 rn Administered Medications: 07:25 Drug: Ketorolac 30 mg Route: IVP; Site: right forearm; kc6 08:04 Follow up: Response: No adverse reaction; Pain is decreased [facility] 07:25 Drug: Decadron - Dexamethasone 10 mg Route: IVP; Site: right forearm; kc6 08:04 Follow up: Response: No adverse reaction kc6 Disposition Summary: 09/02/22 07:57 Discharge Ordered Location: Home rn Problem: new rn Symptoms: have improved rn Condition: Stable rn Diagnosis - Radiculopathy, lumbosacral region rn Followup: rn - With: Private Physician - When: As needed - Reason: Recheck today's complaints, Re-evaluation by your physician Discharge Instructions: - Discharge Summary Sheet rn - Lumbosacral Radiculopathy rn - Pinched Nerve rn - Back Exercises rn Forms: - Medication Reconciliation Form rn - Thank You Letter rn - Antibiotic sports attorney - Prescription Opioid Use rn - Work release form eb Prescriptions: - Ibuprofen 800 mg Oral Tablet - take 1 tablet by ORAL route every 12 hours As needed take with food; 20 tablet; rn Refills: 0, Product Selection Permitted - Cyclobenzaprine 10 mg Oral Tablet - take 1 tablet by ORAL route every 8 hours As needed; 15 tablet; Refills: 0, rn Product Selection Permitted - Medrol (Willy) 4 mg Oral Tablets, Dose Pack - take 1 tablet by ORAL route as directed - follow package instructions; 1 rn packet; Refills: 0, Product Selection Permitted Signatures: Cas Frias MD MD rn Slawson, Ashby RN RN as6 Adriana Vega RN RN kc6
[2022-09-02 08:29] VITALS: TEMP 98.6
[2022-09-02 08:31] VITALS: BP 104/72; O2SAT 98
== END 2022-09-02 08:04 | disposition home or self-care (01) ==
LOC: ER 06:29
DX: M54.17 Radiculopathy, lumbosacral region (principal); F17.210 Nicotine dependence, cigarettes, uncomplicated; Z87.442 Personal history of urinary calculi
CPT/HCPCS: 96375; 96374; 99283; J1100

== ENCOUNTER 2024-02-11 08:52 | Emergency (ER) | payer OTHER, SELFPAY ==
--- OUTSIDE RECORDS SUMMARY | 2024-02-11 08:57 | XMS REPORT | Continuity of Care Document ---
Author Name Unknown Address [address] [facility] 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 Ordering Clinician Indication Dosage Frequency Signature (SIG) Comments Components Source Dose Unknown 2022-0 328 00:00: 00 No Dose Unknown 2022-0 328 00:00: 00 No Dose Unknown 2022-0 328 00:00: 00 No Dose Unknown 2022-0 328 00:00: 00 No Dose Unknown 2022-0 328 00:00: 00 No Dose Unknown 2022-0 328 00:00: 00 No Dose Unknown 2022-0 328 00:00: 00 No Dose Unknown 2022-0 328 00:00: 00 No Dose Unknown 2022-0 328 00:00: 00 No Dose Unknown 2022-0 328 00:00: 00 No Dose Unknown 2022-0 328 00:00: 00 No Dose Unknown 2022-0 328 00:00: 00 No Dose Unknown 2022-0 328 00:00: 00 No Dose Unknown 2022-0 328 00:00: 00 No Dose Unknown 2022-0 328 00:00: 00 No Dose Unknown 2022-0 328 00:00: 00 No Dose Unknown 2022-0 328 00:00: 00 No Dose Unknown 2022-0 328 00:00: 00 No Dose Unknown 2022-0 328 00:00: 00 No Dose Unknown 2022-0 3-28 00:00: 00 No Dose Unknown 2020-1 0-22 00:00: 00 No Dose Unknown 1 0-22 00:00: 00 No Dose Unknown 2020-0 7-27 00:00: 00 No Dose Unknown 2020-0 7-27 00:00: 00 No Dose Unknown 2020-0 7-27 00:00: 00 No Dose Unknown 0 7-27 00:00: 00 No Dose Unknown 2020-0 3-16 00:00: 00 No Dose Unknown 2020-0 3-16 00:00: 00 No Dose Unknown 0 3-16 00:00: 00 No Dose Unknown 0 3-16 00:00: 00 No Dose Unknown 2019-1 2-29 00:00: 00 No Dose Unknown 2019-1 2-29 00:00: 00 No Dose Unknown 2019-1 2-29 00:00: 00 No Dose Unknown 2019-1 2-29 00:00: 00 No Dose Unknown 2019-0 8-12 00:00: 00 No Dose Unknown 2019-0 8-12 00:00: 00 No Dose Unknown 2019-0 8-10 00:00: 00 No Dose Unknown 2019-0 8-10 00:00: 00 No Dose Unknown 2019-0 5-15 00:00: 00 No Dose Unknown 2019-0 5-15 00:00: 00 No Caladryl 1 %-8 % lotion 2019-0 3-30 00:00: 00 No 1% Caladryl 1 %-8 % lotion 2019-0 3-30 00:00: 00 No 1% Dose Unknown 2019-0 3-10 00:00: 00 No Dose Unknown 2019-0 3-10 00:00: 00 No Dose Unknown 2019-0 2-21 00:00: 00 No Dose Unknown 2019-0 2-21 00:00: 00 No Dose Unknown 2019-0 2-21 00:00: 00 No Dose Unknown 2019-0 2-21 00:00: 00 No Dose Unknown 2019-0 2-21 00:00: 00 No Dose Unknown 2019-0 2-21 00:00: 00 No Dose Unknown 2019-0 1-24 00:00: 00 No Dose Unknown 2019-0 1-24 00:00: 00 No amoxicillin 875 mg tablet 2019-1 0-08 00:00: 00 No 1mg Bromfed DM 2 mg-30 mg-10 mg/5 mL oral syrup 2018-08 008 00:00: 00 No 10mg/5 mL amoxicillin 875 mg tablet 2018-08 008 00:00: 00 No 1mg Bromfed DM 2 mg-30 mg-10 mg/5 mL oral syrup 2018-08 008 00:00: 00 No 10mg/5 mL amoxicillin 875 mg tablet 04-17 00:00: 00 No 1mg amoxicillin 875 mg tablet 04-17 00:00: 00 No 1mg hydroxyzine HCl 25 mg tablet 03-11 00:00: 00 No 1mg hydroxyzine HCl 25 mg tablet 03-11 00:00: 00 No 1mg amoxicillin 500 mg capsule 02-20 00:00: 00 No 1mg amoxicillin 500 mg capsule 02-20 00:00: 00 No 1mg Medrol (Willy) 4 mg tablets in a dose pack 02-03 00:00: 00 No mg Medrol (Willy) 4 mg tablets in a dose pack 02-03 00:00: 00 No mg hydroxyzine HCl 25 mg tablet 01-24 00:00: 00 No 1mg hydroxyzine HCl 25 mg tablet 01-24 00:00: 00 No 1mg prednisone 20 mg tablet 01-15 00:00: 00 No 2mg prednisone 20 mg tablet 01-15 00:00: 00 No 2mg Bactrim DS 800 mg-160 mg tablet 12-16 00:00: 00 No 1mg Bactrim DS 800 mg-160 mg tablet 12-16 00:00: 00 No 1mg fluticasone propionate 50 mcg/actuati on nasal spray,suspe nsion 18 00:00: 00 No 2mcg/ac tuation loratadine 10 mg tablet 18 00:00: 00 No 1mg benzonatate 100 mg capsule 18 00:00: 00 No 1mg fluticasone propionate 50 mcg/actuati on nasal spray,suspe nsion 11-10 00:00: 00 No 2mcg/ac tuation loratadine 10 mg tablet 11-10 00:00: 00 No 1mg benzonatate 100 mg capsule 11-10 00:00: 00 No 1mg fluoxetine 10 mg tablet 05-22 00:00: 00 No 1mg hydroxyzine HCl 25 mg tablet 05-22 00:00: 00 No 12mg fluoxetine 10 mg tablet 05-22 00:00: 00 No 1mg hydroxyzine HCl 25 mg tablet 05-22 00:00: 00 No 12mg Vital Signs Vital Name Observation Time Observation Value Comments S ource BP Systolic 2022-08-28 09:00:00 117 mm[Hg] BP [...] /min Respiratory Rate 2019-06-02 16:38:00 18.00 /min Plan of Care Planned Activity Planned Date Details Comments Source Goal Plan of Care Note [code = 40038-5] Goal Plan of Care Note [code = 51062-8] Goal Plan of Care Note [code = 17607-6] Goal Plan of Care Note [code = 81607-2] Goal Plan of Care Note [code = 15743-2] Goal Plan of Care Note [code = 30221-3] Goal Plan of Care Note [code = 84584-0] Goal Plan of Care Note [code = 15579-6] Goal Plan of Care Note [code = 81264-1] Goal Plan of Care Note [code = 99874-2] Goal Plan of Care Note [code = 47541-5] Goal Plan of Care Note [code = 42601-8] Goal Plan of Care Note [code = 23112-0] Goal Plan of Care Note [code = 79135-5] Goal Plan of Care Note [code = 99621-9] Goal Plan of Care Note [code = 73286-2] Goal Plan of Care Note [code = 95974-2] Goal Plan of Care Note [code = 06777-7] Goal Plan of Care Note [code = 90100-5] Goal Plan of Care Note [code = 13377-3] Goal Plan of Care Note [code = 99956-7] Goal Plan of Care Note [code = 65665-0] Goal Plan of Care Note [code = 04793-4] Goal Plan of Care Note [code = 41283-7] Goal Plan of Care Note [code = 74275-8] Goal Plan of Care Note [code = 17410-1] Goal Plan of Care Note [code = 37869-5] Goal Plan of Care Note [code = 94436-5] Goal Plan of Care Note [code = 00101-8] Goal Plan of Care Note [code = 97824-9] Goal Plan of Care Note [code = 53972-6] Goal Plan of Care Note [code = 59073-1] Goal Plan of Care Note [code = 72984-2] Goal Plan of Care Note [code = 92966-2] Goal Plan of Care Note [code = 81217-1] Goal Plan of Care Note [code = 45753-7] Goal Plan of Care Note [code = 74692-9] Goal Plan of Care Note [code = 90614-5] Goal Plan of Care Note [code = 07466-4] Goal Plan of Care Note [code = 39755-3] Goal Plan of Care Note [code = 84172-6] Goal Plan of Care Note [code = 84716-2] Goal Plan of Care Note [code = 31164-7] Goal Plan of Care Note [code = 12751-2] Goal Plan of Care Note [code = 40455-0] Goal Plan of Care Note [code = 87373-6] Goal Plan of Care Note [code = 00583-6] Goal Plan of Care Note [code = 62925-5] Goal Plan of Care Note [code = 12537-4] Goal Plan of Care Note [code = 54469-4] Goal Plan of Care Note [code = 96781-7] Goal Plan of Care Note [code = 80019-1] Goal Plan of Care Note [code = 66534-8] Goal Plan of Care Note [code = 75486-3] Goal Plan of Care Note [code = 34860-6] Goal Plan of Care Note [code = 75628-2] Goal Plan of Care Note [code = 05944-6] Goal Plan of Care Note [code = 82334-5] Goal Plan of Care Note [code = 32439-4] Goal Plan of Care Note [code = 05956-7] Goal Plan of Care Note [code = 47832-1] Goal Plan of Care Note [code = 35516-1] Goal Plan of Care Note [code = 25577-1] Goal Plan of Care Note [code = 04327-5] Goal Plan of Care Note [code = 61708-4] Goal Plan of Care Note [code = 13115-3] Goal Plan of Care Note [code = 57505-9] Goal Plan of Care Note [code = 13975-6] Goal Plan of Care Note [code = 83351-5] Goal Plan of Care Note [code = 72645-3] Goal Plan of Care Note [code = 55117-4] Goal Plan of Care Note [code = 80303-0] Goal Plan of Care Note [code = 72148-4] Goal Plan of Care Note [code = 58700-9] Goal Plan of Care Note [code = 37729-9] Goal Plan of Care Note [code = 92979-2] Goal Plan of Care Note [code = 38364-7] Goal Plan of Care Note [code = 18708-1] Goal Plan of Care Note [code = 49546-7] Goal Plan of Care Note [code = 19131-2] Goal Plan of Care Note [code = 77159-8] Goal Plan of Care Note [code = 11536-2] Goal Plan of Care Note [code = 72433-0] Goal Plan of Care Note [code = 97180-1] Goal Plan of Care Note [code = 61403-4] Goal Plan of Care Note [code = 05333-5] Goal Plan of Care Note [code = 65373-4] Goal Plan of Care Note [code = 84178-7] Goal Plan of Care Note [code = 31930-7] Goal Plan of Care Note [code = 39582-3] Encounters Start Date/Time End Date/Time Encounter Type Admission Type Attending [facility] Care Department Encounter ID Source 2023-04-19 10:38:38 2023-04-19 10:38:38 Outpatient [facility] [id number] Jalen Honeycutt 2023-02-28 16:16:01 2023-02-28 16:16:01 Outpatient [facility] [id number] Jalen Stallings Yinka 2023-02-19 15:09:28 2023-02-19 15:09:28 Outpatient [facility] [id number] Jalen Stallings Yinka 2023-01-15 13:15:03 2023-01-15 13:15:03 Outpatient [facility] [id number] Jalen Stallings Yinka 2022-12-04 13:08:51 2022-12-04 13:08:51 Outpatient [facility] [id number] Jalen Stallings Yinka 2022-09-26 16:06:33 2022-09-26 16:06:33 Outpatient [facility] [id number] Jalen Stallings Yinka 2022-08-28 08:56:06 2022-08-28 08:56:06 Outpatient [facility] [id number] Jalen Stallings Yinka 2022-08-28 00:00:00 2022-08-28 00:00:00 Outpatient Visit [id number] 2022-08-14 11:45:52 2022-08-14 11:45:52 Outpatient [facility] [id number] Jalen Honeycutt 2022-08-14 00:00:00 2022-08-14 00:00:00 Outpatient Visit [id number] Results Test Description Test Time Test Comments Results Result Co mments Source RPR REFLEX TO T. PALLIDUM - [id number] 04:28:01* Test Item Value Reference Range Interpretation Comme nts RPR (test code = 98102) NON-REACTIVE NON-REACTIVE RPR TITER (test code = 3500) NOT INDIC. TITER NOT INDIC. HIV 1/2 4TH GEN, RFLX [id number] 04:08:01* Test Item Value Reference Range Interpretation Comme nts HIV 1/2 4TH GEN, RFLX CONF ( test code = 3514) NON-REACTIVE NON-REACTIVE HEPATITIS PANEL, [id number] 04:08:01* Test Item Value Reference Range Interpretation Comme nts HEPATITIS A IgM (test code = 16344) NON-REACTIVE NON-REACTIVE HEPATITIS B CORE IgM (test code = 4644) NON-REACTIVE NON-REACTIVE HEPATITIS B SURF AG (test code = 2739) NON-REACTIVE NON-REACTIVE HEPATITIS C ANTIBODY (test code = 4675) NON-REACTIVE NON-REACTIVE INTERPRETATION HEPATITIS A: (test code = 2552) (NOTE) Hepatitis A serology shows no evidence of acute hepatitis A. INTERPRETATION HEPATITIS B: (test code = 00636) (NOTE) Hepatitis B serology shows no evidence of acute hepatitis B andno indication of exposure to hepatitis B virus in the previous sabina eight months. INTERPRETATION HEPATITIS C: (test code = 05790) (NOTE) Hepatitis C serology shows no evidence of exposure to hepatitisC virus at this time. It can take up to 12 months after exposure tothe hepatitis C virus for antibodies to become detectable in the blood in certain patients. HERPES SIMPLEX 1/2 AB, IgG [id number] 04:08:01* Test Item Value Reference Range Interpretation Comme nts HERPES SIMPLEX 1 AB, IgG (test code = 04131) 7.120 INDEX SEE BELOW H INTERPRETATION U NITS RANGE ----- ----- NON-REACTIVE INDEX <1.000 REACTIVE INDEX >=1.000 HERPES SIMPLEX 2 AB, IgG (test code = 52333) 0.086 INDEX SEE BELOW INTERPRETATION UNITS RANGE ----- ----- NON-REACTIVE INDEX <1.000 REACTIVE INDEX >=1.000 UNLESS OTHERWISE INDICATED, ALL TESTING PERFORMED AT [facility] [address] [place] [address] CERNER ANALYST: CHRIS VILLAFUERTE M.D. CLIA NUMBER [id number] [facility] [place]. [id number] PAP TEST, THINPREP, [id number] 16:53:48* Test Item Value Reference Range Interpretation Comme nts SOURCE: (test code = 8001) Cervical/Endoce rvical SLIDES: (test code = 8011) 1 LMP: (test code = 8021) 01/25/2023 SPECIMEN ADEQUACY: (test code = 51695) (NOTE) Satisfactory for evaluation. Endocervical cells/transformation zone component present. INTERPRETATION: (test code = 82031) NILM/NO EPITH. 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 The Pap test is a screening test with an inherent, but low probability of error. Your patient should be reminded to consult you immediately if she experiences any suspicious signs or symptoms, regardless of her Pap test result. An alternate report format containing images or consolidated prior Pap history is available as applicable. HPV HIGH RISK WITH GENOTYPE, [id number] 16:46:31* Test Item Value Reference Range Interpretation Comme nts HPV HIGH RISK INTERP (test code = 26124) NEGATIVE NEGATIVE HPV 16 (test code = 34444) NEGATIVE HPV 18 (test code = 15000) NEGATIVE HPV, HR, OTHER GENOTYPES (test code = 14397) NEGATIVE Testing methodol ogy is real-time PCR utilizing hydrolysis probes with the Emmy Oscar 4800 system. The test individually detects genotypes 16 and 18, as well as the other 12 high risk types (31,33,35,39,45,51,52,56 ,58,59,66,68). The expected result is negative. A negative result does not rule out the presence of HPV not included in the genotype set, a low level of infection or specimen sampling error. CT/NG, NAAT, [id number] 13:49:01* Test Item Value Reference Range Interpretation Comme nts CHLAMYDIA, NAAT, THINPREP (test code = 51477) NEGATIVE NEGATIVE A negative resul t does not exclude low level infection, specimensampling error, or collection error. Testing is performed with the Emmy Oscar 6800/8800 systems usingreal-time Polymerase Chain Reaction (PCR) method. GONORRHEA, NAAT, THINPREP (test code = 77580) NEGATIVE NEGATIVE A negative resul t does not exclude low level infection, specimensampling error, or collection error. Testing is performed with the Emmy Oscar 6800/8800 systems usingreal-time Polymerase Chain Reaction (PCR) method. UNLESS OTHERWISE INDICATED, ALL TESTING PERFORMED AT [facility] [address] [place] [address] CERNER ANALYST: CHRIS VILLAFUERTE M.D. CLIA NUMBER [id number] [facility] [place]. [id number] TSH, THIRD [id number] 06:09:39* Test Item Value Reference Range Interpretation Comme nts TSH, THIRD GENERATION (test code = 2821) 2.320 UIU/ML 0.400-4.100 [id number] 06:09:39* Test Item Value Reference Range Interpretation Comme nts PROLACTIN (test code = 2800) 7.5 NG/ML 5.0-37.0 NOTE: Methodolog y is Emmy Oscar Electrochemiluminescence Immunoassay (ECLIA). Values obtained with different assays/manufacturers cannot be used interchangeably. Results should not be used as sole basis to establish the presence or absence of malignancy. UNLESS OTHERWISE INDICATED, ALL TESTING PERFORMED AT [facility] [address] [place] [address] CERNER ANALYST: CHRIS VILLAFUERTE M.D. CLIA NUMBER [id number] [facility] [place]. [id number] CBC W/AUTO DIFF WITH [id number] 02:43:51* Test Item Value Reference Range Interpretation Comme nts WBC (test code = 1001) 8.1 K/UL 3.5-11.0 RBC (test code = 1002) 4.55 M/UL 3.80-5.40 HEMOGLOBIN (test code = 1003) 14.1 G/DL 11.5-15.5 HEMATOCRIT (test code = 1004) 43.3 % 34.0-45.0 MCV (test code = 1005) 95.2 fL 80.0-99.0 MCH (test code = 1006) 31.0 PG 25.0-33.0 MCHC (test code = 1007) 32.6 G/DL 31.0-36.0 RDW (test code = 1038) 13.9 % 11.5-15.0 NEUTROPHILS (test code = 1008) 62.8 % LYMPHOCYTES (test code = 1010) 27.3 % MONOCYTES (test code = 1011) 8.1 % EOSINOPHILS (test code = 1012) 1.1 % BASOPHILS (test code = 1013) 0.5 % IMMATURE GRANULOCYTES (test code = 1036) 0.2 % NUCLEATED RBCS (test code = 1065) 0.0 /100 WBC'S See_Comment [Automated [employer]] The system which generated this result transmitted reference range: 0.0. The reference range was not used to interpret this result as normal/abnormal. PLATELET COUNT (test code = 1015) 259 K/UL 130-400 ABSOLUTE NEUTROPHILS (test code = 1066) 5.08 K/UL 1.50-7.50 ABSOLUTE LYMPHOCYTES (test code = 1067) 2.21 K/UL 1.00-4.00 ABSOLUTE MONOCYTES (test code = 1068) 0.66 K/UL 0.2-3.8 ABSOLUTE EOSINOPHILS (test code = 1040) 0.09 K/UL 0.00-0.50 ABSOLUTE BASOPHILS (test code = 1069) 0.04 K/UL 0.00-0.20 ABS IMMATURE GRANULOCYTES (test code = 1020) 0.02 K/UL 0.00-0.10 ABS NUCLEATED RBCS (test code = 65373) 0.00 K/UL 0.00-0.11 CULTURE, [id number] 08:39:57SPECIMEN NUMBER: [id number] CULTURE, URINE SPECIMEN NUMBER: [id number] SPECIMEN COMMENT: URINE SOURCE: URINE REPORT STATUS: FINAL ISOLATE NUMBER 1: IDENTIFICATION: 09/29/2022 <10,000 CFU/ML YEAST ADD ITIONAL OBSERVATIONS: 09/29/2022 50-100,000 CFU/ML MIXED UROGENITAL [facility] has important pathology staff changes effective 10/24/2022. New pathology staff will provide uninterrupted, excellent patient care and clinical consultation. See URL: [email or web address]. UNLESS OTHERWISE INDICATED, ALL TESTING PERFORMED AT [facility] [address] [place], [place] [address]CLIA: [id number], CAP: [id number] (COVID-19), RT-PCR/[id number] 17:18:54* Test Item Value Reference Range Interpretation Comments SARS-CoV-2 INTERPRETATION (test code = 47349) NEGATIVE SEE NOTE SARS-CoV-2 R NA NOT DETECTEDNegative results do not preclude SARS-CoV-2 infection and should notbe used as the sole basis for patient management decisions. Negativeresults must be combined with clinical observations, patient history,and epidemiological information. Optimum specimen types and timingfor peak viral levels during infections caused by SARS-CoV-2 have notbeen determined. Collection of multiple specimens or types ofspecimens may be necessary to detect virus. Improper specimencollection and handling, sequence variability under primers/probes,or organism present below the limit of detection may lead to falsenegative results. Positive and negative predictive values oftesting are highly dependent on prevalence. False negative testresults are more likely when prevalence is high. EFFECTIVE 11/06/2021, SPUTUM SPECIMENS CAN NO LONGER BE TESTED WITHTHIS ORDER CODE. FOR SALIVA, ORAL FLUID TESTING AND SPECIMENREQUIREMENTS, PLEASE REFER TO ORDER CODE 3509. SOURCE (test code = 80096) NOT SPECIFIED Note: Methodolog y is Emmy Oscar Real-Time RT-PCR. The expected result or reference range is NEGATIVE (Not Detected). For more information regarding COVID-19 testing to include clinicalinformation, methodology detail, intended use, FDA authorization andrecommended fact sheets for patients or healthcare providers, see [employer] Announcement: SARS-CoV-2 (COVID-19) by NAAT at URL below (note,fact sheets are provided by method given in report:[email or web address] Alternatively, see downloadable PDF fact sheet at:[email or web address] UNLESS OTHERWISE INDICATED, ALL TESTING PERFORMED [facility] [employer] [address] [place] [address] CERNER ANALYST: GAMALIEL REED M.D. CLIA NUMBER [id number] [facility] [place] [id number] SARS-CoV-2 (COVID-19) by RT-PCR (HIGH RISK)2021-11-21 00:00:00* Test Item Value Reference Range Interpretation Comme nts SARS-CoV-2 INTERPRETATION (t est code = 56699) NEGATIVE SOURCE (test code = 41617) NOT SPECIFIED SARS-CoV-2 (COVID-19) by RT-PCR (HIGH RISK)2021-11-21 00:00:00* Test Item Value Reference Range Interpretation Comme nts SARS-CoV-2 INTERPRETATION (t est code = 80959) NEGATIVE SOURCE (test code = 24322) NOT SPECIFIED SARS-CoV-2 (COVID-19) by RT-PCR (HIGH RISK)2021-11-21 00:00:00* Test Item Value Reference Range Interpretation Comme nts SARS-CoV-2 INTERPRETATION (t est code = 63772) NEGATIVE SOURCE (test code = 36205) NOT SPECIFIED SARS-CoV-2 (COVID-19) by RT-PCR (HIGH RISK)2021-11-21 00:00:00* Test Item Value Reference Range Interpretation Comme nts SARS-CoV-2 INTERPRETATION (t est code = 47770) NEGATIVE SOURCE (test code = 58401) NOT SPECIFIED ENVIRONMENTAL IgE [id number] 00:00:00* Test Item Value Reference Range Interpretation Comme nts D. PTERONYSSINUS IgE (test c ode = 56743) <0.10 KU/L D. PTERONYS. CLASS (test cod e = 58046) D. FARINAE IgE (test code = 09757) <0.10 KU/L D. FARINAE CLASS (test code = 34832) CAT EPITHELIUM IgE (test cod e = 10300) <0.10 KU/L CAT EPITHELIUM CLASS (test c ode = 05787) DOG DANDER IgE (test code = 32052) <0.10 KU/L DOG DANDER CLASS (test code = 73739) COCKROACH, COLOMBIAN IgE (test code = 24925) <0.10 KU/L COCKROACH, GRMN CLS (test co de = 57848) CHICKEN FEATHERS IgE (test c ode = 45808) <0.10 KU/L CHICKEN FEATHER CLS (test co de = 76090) GOOSE FEATHERS IgE (test cod e = 00790) <0.10 KU/L GOOSE FEATHERS CLASS (test c ode = 43126) ENVIRONMENTAL IgE [id number] 00:00:00* Test Item Value Reference Range Interpretation Comme nts D. PTERONYSSINUS IgE (test c ode = 75462) <0.10 KU/L D. PTERONYS. CLASS (test cod e = 44751) D. FARINAE IgE (test code = 34993) <0.10 KU/L D. FARINAE CLASS (test code = 95514) CAT EPITHELIUM IgE (test cod e = 47584) <0.10 KU/L CAT EPITHELIUM CLASS (test c ode = 93156) DOG DANDER IgE (test code = 77973) <0.10 KU/L DOG DANDER CLASS (test code = 26159) COCKROACH, COLOMBIAN IgE (test code = 41893) <0.10 KU/L COCKROACH, GRMN CLS (test co de = 66774) CHICKEN FEATHERS IgE (test c ode = 28860) <0.10 KU/L CHICKEN FEATHER CLS (test co de = 78650) GOOSE FEATHERS IgE (test cod e = 46513) <0.10 KU/L GOOSE FEATHERS CLASS (test c ode = 35724) FOOD ALLERGY IgE [id number] 00:00:00* Test Item Value Reference Range Interpretation Comme nts EGG WHITE IgE (test code = 72428) <0.10 KU/L EGG WHITE CLASS (test code = 31629) PEANUT IgE (test code = 46363) <0.10 KU/L PEANUT CLASS (test code = 24078) SOYBEAN IgE (test code = 21430) <0.10 KU/L SOYBEAN CLASS (test code = 18060) MILK IgE (test code = 12353) <0.10 KU/L MILK CLASS (test code = 23479) CLAM IgE (test code = 73290) <0.10 KU/L CLAM CLASS (test code = 79485) SHRIMP IgE (test code = 88869) <0.10 KU/L SHRIMP CLASS (test code = 48134) WALNUT IgE (test code = 92231) <0.10 KU/L WALNUT CLASS (test code = 72243) COD FISH IgE (test code = 89728) <0.10 KU/L COD FISH CLASS (test code = 78004) SCALLOP IgE (test code = 98823) <0.10 KU/L SCALLOP CLASS (test code = 33710) WHEAT IgE (test code = 20304) <0.10 KU/L WHEAT CLASS (test code = 09737) CORN IgE (test code = 71125) <0.10 KU/L CORN CLASS (test code = 58563) SESAME SEED IgE (test code = 77682) <0.10 KU/L SESAME SEED CLASS (test code = 31387) FOOD ALLERGY IgE [id number] 00:00:00* Test Item Value Reference Range Interpretation Comme nts EGG WHITE IgE (test code = 24136) <0.10 KU/L EGG WHITE CLASS (test code = 69598) PEANUT IgE (test code = 45002) <0.10 KU/L PEANUT CLASS (test code = 91804) SOYBEAN IgE (test code = 54648) <0.10 KU/L SOYBEAN CLASS (test code = 05427) MILK IgE (test code = 56572) <0.10 KU/L MILK CLASS (test code = 78686) CLAM IgE (test code = 76292) <0.10 KU/L CLAM CLASS (test code = 08579) SHRIMP IgE (test code = 83926) <0.10 KU/L SHRIMP CLASS (test code = 39873) WALNUT IgE (test code = 44007) <0.10 KU/L WALNUT CLASS (test code = 49849) COD FISH IgE (test code = 17657) <0.10 KU/L COD FISH CLASS (test code = 85685) SCALLOP IgE (test code = 78951) <0.10 KU/L SCALLOP CLASS (test code = 65760) WHEAT IgE (test code = 84104) <0.10 KU/L WHEAT CLASS (test code = 97979) CORN IgE (test code = 94313) <0.10 KU/L CORN CLASS (test code = 33796) SESAME SEED IgE (test code = 87141) <0.10 KU/L SESAME SEED CLASS (test code = 62811) [facility] ALLERGENS [REFLEX]2019-02-04 00:00:00* Test Item Value Reference Range Interpretation Comme nts INTERPRETATION: (test code = 1990) (NOTE) ENVIRONMENTAL IgE [id number] 00:00:00* Test Item Value Reference Range Interpretation Comme nts D. PTERONYSSINUS IgE (test c ode = 25187) <0.10 KU/L D. PTERONYS. CLASS (test cod e = 53946) D. FARINAE IgE (test code = 36127) <0.10 KU/L D. FARINAE CLASS (test code = 92088) CAT EPITHELIUM IgE (test cod e = 06318) <0.10 KU/L CAT EPITHELIUM CLASS (test c ode = 01209) DOG DANDER IgE (test code = 09215) <0.10 KU/L DOG DANDER CLASS (test code = 38748) COCKROACH, COLOMBIAN IgE (test code = 94365) <0.10 KU/L COCKROACH, GRMN CLS (test co de = 20385) CHICKEN FEATHERS IgE (test c ode = 20312) <0.10 KU/L CHICKEN FEATHER CLS (test co de = 67529) GOOSE FEATHERS IgE (test cod e = 62805) <0.10 KU/L GOOSE FEATHERS CLASS (test c ode = 04180) ENVIRONMENTAL IgE [id number] 00:00:00* Test Item Value Reference Range Interpretation Comme nts D. PTERONYSSINUS IgE (test c ode = 02336) <0.10 KU/L D. PTERONYS. CLASS (test cod e = 58849) D. FARINAE IgE (test code = 36461) <0.10 KU/L D. FARINAE CLASS (test code = 31694) CAT EPITHELIUM IgE (test cod e = 93525) <0.10 KU/L CAT EPITHELIUM CLASS (test c ode = 04058) DOG DANDER IgE (test code = 48173) <0.10 KU/L DOG DANDER CLASS (test code = 16282) COCKROACH, COLOMBIAN IgE (test code = 35668) <0.10 KU/L COCKROACH, GRMN CLS (test co de = 02499) CHICKEN FEATHERS IgE (test c ode = 34310) <0.10 KU/L CHICKEN FEATHER CLS (test co de = 47706) GOOSE FEATHERS IgE (test cod e = 32836) <0.10 KU/L GOOSE FEATHERS CLASS (test c ode = 75638) FOOD ALLERGY IgE [id number] 00:00:00* Test Item Value Reference Range Interpretation Comme nts EGG WHITE IgE (test code = 11050) <0.10 KU/L EGG WHITE CLASS (test code = 91262) PEANUT IgE (test code = 02074) <0.10 KU/L PEANUT CLASS (test code = 98327) SOYBEAN IgE (test code = 80891) <0.10 KU/L SOYBEAN CLASS (test code = 12843) MILK IgE (test code = 27559) <0.10 KU/L MILK CLASS (test code = 34272) CLAM IgE (test code = 03669) <0.10 KU/L CLAM CLASS (test code = 57631) SHRIMP IgE (test code = 66996) <0.10 KU/L SHRIMP CLASS (test code = 50906) WALNUT IgE (test code = 41009) <0.10 KU/L WALNUT CLASS (test code = 87775) COD FISH IgE (test code = 41879) <0.10 KU/L COD FISH CLASS (test code = 02810) SCALLOP IgE (test code = 38969) <0.10 KU/L SCALLOP CLASS (test code = 32960) WHEAT IgE (test code = 11816) <0.10 KU/L WHEAT CLASS (test code = 64166) CORN IgE (test code = 46905) <0.10 KU/L CORN CLASS (test code = 35714) SESAME SEED IgE (test code = 54112) <0.10 KU/L SESAME SEED CLASS (test code = 81033) FOOD ALLERGY IgE [id number] 00:00:00* Test Item Value Reference Range Interpretation Comme nts EGG WHITE IgE (test code = 92504) <0.10 KU/L EGG WHITE CLASS (test code = 68691) PEANUT IgE (test code = 66257) <0.10 KU/L PEANUT CLASS (test code = 41079) SOYBEAN IgE (test code = 84139) <0.10 KU/L SOYBEAN CLASS (test code = 45059) MILK IgE (test code = 90639) <0.10 KU/L MILK CLASS (test code = 83519) CLAM IgE (test code = 65430) <0.10 KU/L CLAM CLASS (test code = 57099) SHRIMP IgE (test code = 56704) <0.10 KU/L SHRIMP CLASS (test code = 20436) WALNUT IgE (test code = 38631) <0.10 KU/L WALNUT CLASS (test code = 04734) COD FISH IgE (test code = 59421) <0.10 KU/L COD FISH CLASS (test code = 96479) SCALLOP IgE (test code = 49005) <0.10 KU/L SCALLOP CLASS (test code = 37352) WHEAT IgE (test code = 85579) <0.10 KU/L WHEAT CLASS (test code = 96158) CORN IgE (test code = 26849) <0.10 KU/L CORN CLASS (test code = 53577) SESAME SEED IgE (test code = 82940) <0.10 KU/L SESAME SEED CLASS (test code = 40649) CPL ALLERGENS [REFLEX][id number] 00:00:00* Test Item Value Reference Range Interpretation Comme nts INTERPRETATION: (test code = 1990) (NOTE) COMPREHENSIVE METABOLIC [id number] 00:00:00* Test Item Value Reference Range Interpretation Comme nts GLUCOSE (test code = 2217) 106 MG/DL BUN (test code = 2208) 12 MG/DL CREATININE (test code = 2214) 0.90 MG/DL eGFR AMER. (test cod e = 10601) 98 ML/MIN/1.73 eGFR NON- AMER. (test code = 12785) 85 ML/MIN/1.73 CALC BUN/CREAT (test code = 2235) 13 RATIO SODIUM (test code = 2231) 143 MEQ/L POTASSIUM (test code = 2228) 4.3 MEQ/L CHLORIDE (test code = 2215) 106 MEQ/L CARBON DIOXIDE (test code = 2206) 26 MEQ/L CALCIUM (test code = 2209) 9.3 MG/DL PROTEIN, TOTAL (test code = 2229) 7.1 G/DL ALBUMIN (test code = 2201) 4.5 G/DL CALC GLOBULIN (test code = 2240) 2.6 G/DL CALC A/G RATIO (test code = 2234) 1.7 RATIO BILIRUBIN, TOTAL (test code = 2207) <0.2 MG/DL ALKALINE PHOSPHATASE (test code = 2204) 89 U/L AST (test code = 2218) 18 U/L ALT (test code = 2219) 29 U/L COMPREHENSIVE METABOLIC [id number] 00:00:00* Test Item Value Reference Range Interpretation Comme nts GLUCOSE (test code = 2217) 106 MG/DL BUN (test code = 2208) 12 MG/DL CREATININE (test code = 2214) 0.90 MG/DL eGFR AMER. (test cod e = 99431) 98 ML/MIN/1.73 eGFR NON- AMER. (test code = 78617) 85 ML/MIN/1.73 CALC BUN/CREAT (test code = 2235) 13 RATIO SODIUM (test code = 2231) 143 MEQ/L POTASSIUM (test code = 2228) 4.3 MEQ/L CHLORIDE (test code = 2215) 106 MEQ/L CARBON DIOXIDE (test code = 2206) 26 MEQ/L CALCIUM (test code = 2209) 9.3 MG/DL PROTEIN, TOTAL (test code = 2229) 7.1 G/DL ALBUMIN (test code = 2201) 4.5 G/DL CALC GLOBULIN (test code = 2240) 2.6 G/DL CALC A/G RATIO (test code = 2234) 1.7 RATIO BILIRUBIN, TOTAL (test code = 2207) <0.2 MG/DL ALKALINE PHOSPHATASE (test code = 2204) 89 U/L AST (test code = 2218) 18 U/L ALT (test code = 2219) 29 U/L COMPREHENSIVE METABOLIC [id number] 00:00:00* Test Item Value Reference Range Interpretation Comme nts GLUCOSE (test code = 2217) 106 MG/DL BUN (test code = 2208) 12 MG/DL CREATININE (test code = 2214) 0.90 MG/DL eGFR AMER. (test cod e = 64488) 98 ML/MIN/1.73 eGFR NON- AMER. (test code = 53757) 85 ML/MIN/1.73 CALC BUN/CREAT (test code = 2235) 13 RATIO SODIUM (test code = 2231) 143 MEQ/L POTASSIUM (test code = 2228) 4.3 MEQ/L CHLORIDE (test code = 2215) 106 MEQ/L CARBON DIOXIDE (test code = 2206) 26 MEQ/L CALCIUM (test code = 2209) 9.3 MG/DL PROTEIN, TOTAL (test code = 2229) 7.1 G/DL ALBUMIN (test code = 2201) 4.5 G/DL CALC GLOBULIN (test code = 2240) 2.6 G/DL CALC A/G RATIO (test code = 2234) 1.7 RATIO BILIRUBIN, TOTAL (test code = 2207) <0.2 MG/DL ALKALINE PHOSPHATASE (test code = 2204) 89 U/L AST (test code = 2218) 18 U/L ALT (test code = 2219) 29 U/L COMPREHENSIVE METABOLIC [id number] 00:00:00* Test Item Value Reference Range Interpretation Comme nts GLUCOSE (test code = 2217) 106 MG/DL BUN (test code = 2208) 12 MG/DL CREATININE (test code = 2214) 0.90 MG/DL eGFR AMER. (test cod e = 85714) 98 ML/MIN/1.73 eGFR NON- AMER. (test code = 37052) 85 ML/MIN/1.73 CALC BUN/CREAT (test code = 2235) 13 RATIO SODIUM (test code = 2231) 143 MEQ/L POTASSIUM (test code = 2228) 4.3 MEQ/L CHLORIDE (test code = 2215) 106 MEQ/L CARBON DIOXIDE (test code = 2206) 26 MEQ/L CALCIUM (test code = 2209) 9.3 MG/DL PROTEIN, TOTAL (test code = 2229) 7.1 G/DL ALBUMIN (test code = 2201) 4.5 G/DL CALC GLOBULIN (test code = 2240) 2.6 G/DL CALC A/G RATIO (test code = 2234) 1.7 RATIO BILIRUBIN, TOTAL (test code = 2207) <0.2 MG/DL ALKALINE PHOSPHATASE (test code = 2204) 89 U/L AST (test code = 2218) 18 U/L ALT (test code = 2219) 29 U/L HEMOGLOBIN [id number] 00:00:00* Test Item Value Reference Range Interpretation Comme nts HEMOGLOBIN A1c (test code = 94590) 5.6 % HEMOGLOBIN [id number] 00:00:00* Test Item Value Reference Range Interpretation Comme nts HEMOGLOBIN A1c (test code = 77232) 5.6 % HEMOGLOBIN [id number] 00:00:00* Test Item Value Reference Range Interpretation Comme nts HEMOGLOBIN A1c (test code = 86787) 5.6 % HEMOGLOBIN [id number] 00:00:00* Test Item Value Reference Range Interpretation Comme nts HEMOGLOBIN A1c (test code = 68332) 5.6 % HEMOGLOBIN [id number] 00:00:00* Test Item Value Reference Range Interpretation Comme nts HEMOGLOBIN A1c (test code = 68826) 5.6 % HEMOGLOBIN [id number] 00:00:00* Test Item Value Reference Range Interpretation Comme nts HEMOGLOBIN A1c (test code = 08297) 5.6 % CULTURE, [id number] 00:00:00* Test Item Value Reference Range Interpretation Comme nts CULTURE, URINE (test code = 28526) SPECIMEN NUMBER: [id number] CULTURE, [id number] 00:00:00* Test Item Value Reference Range Interpretation Comme nts CULTURE, URINE (test code = 34795) SPECIMEN NUMBER: [id number] CULTURE, [id number] 00:00:00* Test Item Value Reference Range Interpretation Comme nts CULTURE, URINE (test code = 66683) SPECIMEN NUMBER: [id number] CULTURE, [id number] 00:00:00* Test Item Value Reference Range Interpretation Comme nts CULTURE, URINE (test code = 91057) SPECIMEN NUMBER: [id number] GC AND CHLAMYDIA AMPLIFIED, [id number] 00:00:00* Test Item Value Reference Range Interpretation Comme nts GONORRHEA, TMA (test code = 83313) NEGATIVE CHLAMYDIA, TMA (test code = 72075) NEGATIVE GC AND CHLAMYDIA AMPLIFIED, [id number] 00:00:00* Test Item Value Reference Range Interpretation Comme nts GONORRHEA, TMA (test code = 68875) NEGATIVE CHLAMYDIA, TMA (test code = 52129) NEGATIVE PAP TEST, THINPREP, [id number] 00:00:00* Test Item Value Reference Range Interpretation Comme nts SOURCE: (test code = 8001) Cervical/Endocervical SLIDES: (test code = 8011) 1 LMP: (test code = 8021) 04-26-2017 SPECIMEN ADEQUACY: (test code = 94556) (NOTE) INTERPRETATION: (test code = 65953) NO EPITHELIAL ABNORMALITY SEE BELOW OTHER COMMENTS: (test code = 8081) (NOTE) [employer]IL[employer] LAB[employer]ER: (test code = 8101) WHITNEY Santoro (ASCP) LOCATION: (test code = 45177) (NOTE) CPT: (test code = 8140) (NOTE) PAP TEST, THINPREP, [id number] 00:00:00* Test Item Value Reference Range Interpretation Comme [facility] SOURCE: (test code = 8001) Cervical/Endocervical SLIDES: (test code = 8011) 1 LMP: (test code = 8021) 04-26-2017 SPECIMEN ADEQUACY: (test code = 14816) (NOTE) INTERPRETATION: (test code = 42337) NO EPITHELIAL ABNORMALITY SEE BELOW OTHER COMMENTS: (test code = 8081) (NOTE) [employer]IL[employer] LABORER: (test code = 8101) WHITNEY Santoro (ASCP) LOCATION: (test code = 62735) (NOTE) CPT: (test code = 8140) (NOTE) HPV HIGH RISK WITH GENOTYPE, [id number] 00:00:00* Test Item Value Reference Range Interpretation Comme nts HPV HIGH RISK INTERP (test c ode = 31186) NEGATIVE HPV 16 (test code = 99771) NEGATIVE HPV 18 (test code = 82419) NEGATIVE HPV, HR, OTHER GENOTYPES (te st code = 98447) NEGATIVE HPV HIGH RISK WITH GENOTYPE, [id number] 00:00:00* Test Item Value Reference Range Interpretation Comme nts HPV HIGH RISK INTERP (test c ode = 52278) NEGATIVE HPV 16 (test code = 15179) NEGATIVE HPV 18 (test code = 49410) NEGATIVE HPV, HR, OTHER GENOTYPES (te st code = 45649) NEGATIVE GC AND CHLAMYDIA AMPLIFIED, [id number] 00:00:00* Test Item Value Reference Range Interpretation Comme nts GONORRHEA, TMA (test code = 87075) NEGATIVE CHLAMYDIA, TMA (test code = 88970) NEGATIVE GC AND CHLAMYDIA AMPLIFIED, [id number] 00:00:00* Test Item Value Reference Range Interpretation Comme nts GONORRHEA, TMA (test code = 58863) NEGATIVE CHLAMYDIA, TMA (test code = 20922) NEGATIVE PAP TEST, THINPREP, [id number] 00:00:00* Test Item Value Reference Range Interpretation Comme [facility] SOURCE: (test code = 8001) Cervical/Endocervical SLIDES: (test code = 8011) 1 LMP: (test code = 8021) 04-26-2017 SPECIMEN ADEQUACY: (test code = 53765) (NOTE) INTERPRETATION: (test code = 58852) NO EPITHELIAL ABNORMALITY SEE BELOW OTHER COMMENTS: (test code = 8081) (NOTE) [employer] LAB[employer]ER: (test code = 8101) WHITNEY Santoro (ASCP) LOCATION: (test code = 22191) (NOTE) CPT: (test code = 8140) (NOTE) PAP TEST, THINPREP, [id number] 00:00:00* Test Item Value Reference Range Interpretation Comme [facility] SOURCE: (test code = 8001) Cervical/Endocervical SLIDES: (test code = 8011) 1 LMP: (test code = 8021) 04-26-2017 SPECIMEN ADEQUACY: (test code = 63216) (NOTE) INTERPRETATION: (test code = 87256) NO EPITHELIAL ABNORMALITY SEE BELOW OTHER COMMENTS: (test code = 8081) (NOTE) [employer]IL[employer] LAB[employer]ER: (test code = 8101) WHITNEY Santoro (ASCP) LOCATION: (test code = 55164) (NOTE) CPT: (test code = 8140) (NOTE) HPV HIGH RISK WITH GENOTYPE, [id number] 00:00:00* Test Item Value Reference Range Interpretation Comme nts HPV HIGH RISK INTERP (test c ode = 41390) NEGATIVE HPV 16 (test code = 13408) NEGATIVE HPV 18 (test code = 27650) NEGATIVE HPV, HR, OTHER GENOTYPES (te st code = 40133) NEGATIVE HPV HIGH RISK WITH GENOTYPE, [id number] 00:00:00* Test Item Value Reference Range Interpretation Comme nts HPV HIGH RISK INTERP (test c ode = 75024) NEGATIVE HPV 16 (test code = 64410) NEGATIVE HPV 18 (test code = 60572) NEGATIVE HPV, HR, OTHER GENOTYPES (te st code = 44375) NEGATIVE
[2024-02-11 10:07] LABS: SARS-CoV-2 Antigen CONTROL BLUE LINE VIS/BG OK; SARS-CoV-2 Antigen Rapid Res Negative (Negative)
[2024-02-11 10:49] VITALS: BP 110/76; TEMP 98.2; O2SAT 100
--- NOTE | 2024-02-11 12:31 | RAD REPORT ---
EXAM DESCRIPTION: Jeanine Single View02/11/2024 10:05 am CLINICAL HISTORY: COUGH COMPARISON: Chest Pa And Lat (2 Views) dated 11/12/2018; CHEST PA AND LAT 2 VIEW dated 04/13/2009 TECHNIQUE: Portable AP view of the chest. FINDINGS: The lungs are clear. No pneumothorax or effusion. The cardiomediastinal contours are unre markable. IMPRESSION: No acute cardiopulmonary process.
--- NOTE | 2024-02-11 17:59 | EDPHYS ---
Physician Documentation [facility] Name: Edel Willingham Age: 39 yrs Sex: Female : 1985 Arrival Date: 02/11/2024 Time: 08:52 Bed DIS1 Private MD: ED Physician Yousif Sun HPI: 02/10 09:25 This 39 yrs old Female presents to ER via Ambulatory with complaints of Flu ec2 Symptoms. 09:25 Patient arrives today for evaluation of several days of cough and cold symptoms. ec2 Patient complaining of cough and cold symptoms along with sore throat. No history of p.o. intake, no vomiting, no nausea. No fevers or chills. . 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 - Infectious Disease History:: Denies. - Social history:: Smoking status: Patient denies any tobacco usage or history of. ROS: 09:25 Constitutional: as per hpi ec2 Exam: 09:25 Constitutional: GEN: NAD Head: atraumatic Eyes: EOMI Ears: External ears are normal. ec2 Mouth: No posterior exudates, pharynx does have positive pharyngeal erythema. CV: regular rate LUNGS: no respiratory distress, wheezes, rales, or rhonchi ABD: non-distended SKIN: no evidence of rashes MSK: no evidence of trauma NEURO: moves all extremities equally Vital Signs: 09:09 BP 110 / 76; Pulse 75; Resp 16; Temp 98.2; Pulse Ox 100% on R/A; Weight 96.62 kg; iw Height 5 ft. 6 in. ; 09:09 Body Mass Index 34.38 (96.62 kg, 167.64 cm) iw MDM: 09:22 Patient medically screened. ec2 09:25 Data reviewed: vital signs. ED course: Patient arrives today for evaluation of cough ec2 and cold symptoms. Examination remarkable for well-appearing nontoxic visualized posterior pharyngeal erythema was otherwise in no acute distress. Will obtain chest x-ray, viral swabs, strep swab. Differential does include pharyngitis, viral versus strep. . 10:08 ED course: Strep positive. Influenza and COVID testing negative. Chest x-ray ec2 independently reviewed and interpreted by me, shows no acute intrathoracic process. Will start the patient antibiotics and steroids and have the patient follow-up primary care doctor. Return precautions given . 02/10 09:21 Order name: Influenza Screen (a \T\ B); Complete Time: 10:08 ec2 02/10 09:21 Order name: SARS RAPID; Complete Time: 10:08 ec2 02/10 09:21 Order name: Strep; Complete Time: 10:08 ec2 02/10 09:21 Order name: CXR XRAY ec2 Administered Medications: No medications were administered Disposition Summary: 02/11/24 10:11 Discharge Ordered Notes: Location: Home ec2 Condition: Stable ec2 Diagnosis - Streptococcal pharyngitis ec2 Followup: ec2 - With: Private Physician - When: - Reason: Re-evaluation by your physician Discharge Instructions: - Discharge Summary Sheet ec2 - Strep Throat, Adult, [id number] ec2 Forms: - Work release form ec2 - Medication Reconciliation Form ec2 - Antibiotic Education ec2 - Prescription Opioid Use ec2 - Patient Portal Instructions ec2 - Leadership Thank You Letter ec2 Prescriptions: - Augmentin 875-125 mg Oral Tablet - take 1 tablet ORAL route every 12 hours for 10 days; 20 tablet; Refills: 0, ec2 Product Selection Permitted - Prednisone 20 mg Oral Tablet - take 2 tablets ORAL route once daily for 5 days; 10 tablet; Refills: 0, Product ec2 Selection Permitted Signatures: Dispatcher [employer] EDIvon Washington RN RN iw Lewis, Lynsay, RN RN ll1 Yousif Sun MD MD ec2 Corrections: (The following items were deleted from the chart) 09: 09:22 Chest Single View+RAD.RAD.BRZ ordered. EDVA EDMS : 09:22 Influenza Screen (A \T\ B)+BA.LAB.BRZ ordered. EDMS EDMS : 09:22 SARS-COV-2 Antigen Rapid+I.LAB.BRZ ordered. EDVA EDMS 09:22 Group A Streptococcus Rapid Sc+BA.LAB.BRZ ordered. EDMS EDMS
--- NOTE | 2024-02-11 17:59 | ER ---
Nurse's Notes [facility] Name: Edel Willingham Age: 39 yrs Sex: Female : 1985 Arrival Date: 02/11/2024 Time: 08:52 Bed DIS1 Private MD: Diagnosis: Streptococcal pharyngitis Presentation: 02/10 09:09 Chief complaint: Patient states: cough, sore throat , feels congestion in chest, iw symptom started yesterday. Coronavirus screen: Client presents with at least one sign or symptom that may indicate coronavirus-19. Ebola Screen: Patient negative for fever greater than or equal to 101.5 degrees Fahrenheit, and additional compatible Ebola Virus Disease symptoms Patient denies exposure to infectious person. Patient denies travel to an Ebola-affected area in the 21 days before illness onset. No symptoms or risks identified at this time. Initial Sepsis Screen: Does the patient meet any 2 criteria? No. Patient's initial sepsis screen is negative. Does the patient have a suspected source of infection? No. Patient's initial sepsis screen is negative. Risk Assessment: Do you want to hurt yourself or someone else? Patient reports no desire to harm self or others. Onset of symptoms was February 10, 2024. 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 - Infectious Disease History:: Denies. - Social history:: Smoking status: Patient denies any tobacco usage or history of. Screenin:15 [facility] ED Fall Risk Assessment (Adult) History of falling in the last 3 months, ll1 including since admission No falls in past 3 months (0 pts) Confusion or Disorientation No (0 pts) Intoxicated or Sedated No (0 pts) Impaired Gait No (0 pts) Mobility Assist Device Used No (0 pt) Altered Elimination No (0 pt) Score/Fall Risk Level 0 - 2 = Low Risk Maintained a safe environment, Hourly rounding (assess needs \T\ fall precautionary measures) done. Abuse screen: Denies threats or abuse. Nutritional screening: No deficits noted. Tuberculosis screening: No symptoms or risk factors identified. Assessment: 10:15 General: Appears uncomfortable, Behavior is calm, cooperative, appropriate for age. ll1 General: Reports feeling ill for fatigue for. Pain: Complains of pain in throat Quality of pain is described as aching. Neuro: Reports headache. EENT: Reports nasal congestion pain when swallowing. Vital Signs: 09:09 BP 110 / 76; Pulse 75; Resp 16; Temp 98.2; Pulse Ox 100% on R/A; Weight 96.62 kg; iw Height 5 ft. 6 in. ; 09:09 Body Mass Index 34.38 (96.62 kg, 167.64 cm) iw ED Course: 08:56 Patient arrived in ED. im 09:03 Yousif Sun MD is Attending Physician. ec2 09:10 Triage completed. iw 09:11 Ivon Easley, RN is Primary Nurse. iw 09:11 Arm band placed on. iw 10:07 CXR XRAY In Process Unspecified. EDMS 10:15 No provider procedures requiring assistance completed. Patient did not have IV access ll1 during this emergency room visit. 10:30 Patient has correct armband on for positive identification. Provided Education on: ll1 finish all prescribed antibiotics. Administered Medications: No medications were administered Medication: 10:30 VIS not applicable for this client. ll1 Outcome: 10:11 Discharge ordered by . ec2 10:15 Discharged to home ambulatory, ll1 10:15 Condition: stable 10:15 Discharge instructions given to patient, Instructed on discharge instructions, follow up and referral plans. Demonstrated understanding of instructions, follow-up care, Prescriptions given X 2, 10:30 Patient left the ED. ll1 Signatures: Dispatcher [employer] Ivon Armendariz RN RN iw Jason Kim RN RN ll1 Yessi Arguello im Yousif Sun MD MD ec2
== END 2024-02-11 10:30 | disposition home or self-care (01) ==
LOC: ER 08:52
DX: J02.0 Streptococcal pharyngitis (principal); Z11.52 Encounter for screening for COVID-19
CPT/HCPCS: 36415; 71045; 87081; 87804; 87811